=== PATIENT | male | born 1965 | race Caucasian/White ===

== ENCOUNTER 2017-11-05 12:21 | Emergency (ER) | payer SELFPAY ==
--- NOTE | 2017-11-05 13:55 | RAD ---
HISTORY: Right wrist injury COMPARISONS: None VIEWS: 3, Frontal, lateral, and oblique views of the right wrist FINDINGS: BONE DENSITY: Normal. BONES: There is a transverse oblique, minimally displaced fracture of the distal radial metaphysis. JOINTS: There is no arthropathy. ALIGNMENT: There is no dislocation. SOFT TISSUES: Unremarkable. OTHER FINDINGS: None. IMPRESSION: MINIMALLY DISPLACED FRACTURE OF THE DISTAL RADIAL METAPHYSIS
[2017-11-05] MEDS ORDERED: Acetaminophen TAB* 325 MG PO ONE (14:06)
[2017-11-05 14:50] VITALS: BP 158/96
--- NOTE | 2017-11-05 15:25 | ED ---
Upper Extremity Pain - HPI Summary HPI Summary: Patient is a 52-year-old male who presents emergency department for a right wrist injury that occurred just prior to arrival. Pt. state he was on a 10 foot ladder cutting trees when the ladder "buckled" and pt. fell to the ground. He states he landed on the his right wrist and low back. He denies head injury of LOC. Pt. states he had some mild back pain that has resolved. Pt. denies h/a, neck pain, chest pain, SOB, numbness, tingling, weakness in extremities. He denies past medical hx. Is not anticoagulated. Symptoms are moderate in severity. Moving right wrist makes symptoms worse. Nothing makes symptoms better. - History of Current Complaint Chief Complaint: EDExtremityUpper Stated Complaint: FALL/RT WRIST INJURY Time Seen by Provider: 11/05/17 13:33 Hx Obtained From: Patient - Allergies/Home Medications Allergies/Adverse Reactions: Allergies Allergy/AdvReac Type Severity Reaction Status Date / Time No Known Allergies Allergy Verified 11/05/17 12:26 Home Medications: Home Medications NK [No Home Medications Reported] 11/05/17 [History Confirmed 11/05/17] PMH/Surg Hx/FS Hx/Imm Hx Previously Healthy: Yes Infectious Disease History: No Infectious Disease History: Denies: Traveled Outside the [place] in Last 30 Days - Social History Occupation: Employed Full-time Lives: With Family Alcohol Use: None Substance Use Type: Reports: None Smoking Status (MU): Heavy Every Day Tobacco Smoker Review of Systems Eyes: Negative ENT: Negative Cardiovascular: Negative Negative: Chest Pain Respiratory: Negative Negative: Shortness Of Breath Gastrointestinal: Negative Negative: Abdominal Pain, Vomiting, Nausea Genitourinary: Negative Negative: hematuria Positive: Other - Back pain, right wrist pain Skin: Negative Negative: Bruising Neurological: Negative Negative: Headache, Weakness, Paresthesia, Numbness, Syncope All Other Systems Reviewed And Are Negative: Yes Physical Exam Triage Information Reviewed: Yes Vital Signs On Initial Exam: Initial Vitals Temp Pulse Resp BP Pulse Ox 97.4 F 72 16 128/77 97 11/05/17 12:24 11/05/17 12:24 11/05/17 12:24 11/05/17 12:24 11/05/17 12:24 Vital Signs Reviewed: Yes Appearance: Positive: Pain Distress - Pt. sitting up in bed in NAD. Appear in pain but nontoxic. Holding right wrist Skin: Positive: Warm, Dry Head/Face: Positive: Normal Head/Face Inspection Eyes: Positive: Normal, ANTONIO Neck: Positive: Supple, Nontender - No midline tenderness Respiratory/Lung Sounds: Positive: Clear to Auscultation, Breath Sounds Present Cardiovascular: Positive: Normal, RRR Abdomen Description: Positive: Nontender, Soft Musculoskeletal: Positive: Other - Good palpable right radial pulse. 5/5 strength. No sensory deficits. Edema and pain noted to the distal forearm. No breaks in the skin. No proximal elbow or shoulder pain. No midline back tenderness. No ecchymosis. Neurological: Positive: Normal, CN Intact II-III Psychiatric: Positive: Normal - [place] Coma Scale Best Eye Response: 4 - Spontaneous Best Motor Response: 6 - Obeys Commands Best Verbal Response: 5 - Oriented Coma Scale Total: 15 Procedures - Splinting Hand-Made Type: orthoglass Splint: sugar-tong Pre-Proc Neuro Vasc Exam: normal Post-Proc Neuro Vasc Exam: normal Diagnostics - Vital Signs Vital Signs Temp Pulse Resp BP Pulse Ox 11/05/17 14:48 97.0 F 68 18 158/96 97 11/05/17 12:24 97.4 F 72 16 128/77 97 - Laboratory Lab Statement: Any lab studies that have been ordered have been reviewed, and results considered in the medical decision making process. Course/Dx - Course Course Of Treatment: Pt. presenting to the ER for an isolated right wrist injury after falling off of a ladder. Pt. noted in triage that he had low back pain. On my exam, pt. states back pain has resolved and he declined imaging on back. Pt. initially declined any pain medication. He otherwise denies h/a, neck pain, CP, SOB, abd. pain, numbness, tingling or weakness. Wrist xray shows a minimally displaced distal radial fracture, per radiology. Pt. agreed to tylenol prior to splinting. Sugar tong splint was placed. Pt. to call the ortho. clinic today to schedule an appointment. To ice and elevate. Tylenol for pain as directed. To return to ER for any worsening sxs or any new symptoms. Pt. understands and agrees with plan. - Diagnoses Differential Diagnosis/HQI/PQRI: Positive: Contusion, Fracture (Closed), Hematoma, Strain, Sprain Provider Diagnoses: Radial fracture Discharge - Sign-Out/Discharge Documenting (check all that apply): Discharge/Admit/Transfer - Discharge Plan Condition: Good Disposition: HOME Patient Education Materials: Wrist Fracture in Adults (ED) Referrals: Hugh Lauren MD [Medical Doctor] - No Primary Care Phys,NOPCP [Primary Care Provider] - Additional Instructions: Call Dr. Barboza's office today to schedule an appointment Ice and elevate intermittently Keep splint in place Tylenol for pain as directed Return to ER if symptoms change or worsen - Billing Disposition and Condition Condition: GOOD Disposition: HOME
== END 2017-11-05 14:49 | disposition home or self-care (01) ==
LOC: ED 12:21
DX: S52.591A Other fractures of lower end of right radius, initial encounter for closed fracture (principal); W11.XXXA Fall on and from ladder, initial encounter; Y93.H9 Activity, other involving exterior property and land maintenance, building and construction; Y92.9 Unspecified place or not applicable; F17.200 Nicotine dependence, unspecified, uncomplicated
CPT/HCPCS: 99282; A9270-GY

== ENCOUNTER 2017-12-21 13:53 | Inpatient (IN) | payer SELFPAY ==
[2017-12-21] MEDS ORDERED: Aspirin SUPP* 300 MG ONE (14:01)
[2017-12-21] MEDS ORDERED: Propofol* 100 ML ONE (14:02)
[2017-12-21] MEDS ORDERED: Aspirin SUPP* 300 MG PR ONE (14:10)
[2017-12-21] MEDS ORDERED: Amiodarone 150 MG IVPREMIX* 150 MG/100 ML BAG IV ONE (14:10)
[2017-12-21] MEDS ORDERED: NS 0.9% 1000 ML* 1,000 ML IV ONE (14:10)
[2017-12-21] MEDS ORDERED: Metoprolol Tartrate IV* 1 MG/ML 5 ML VIAL IV ONE (14:10)
[2017-12-21 14:19] LABS: ABS Basophils 0.1 10^3/ul (0-0.2); ABS Eosinophils 0.1 10^3/ul (0-0.6); ABS Lymphocytes 3.5 10^3/ul (1.0-4.8); ABS Monocytes 0.2 10^3/ul (0-0.8); ABS Neutrophils 5.2 10^3/ul (1.5-7.7); ABS Nucleated RBC 0 10^3/ul; Hematocrit 39 % (42-52); Hemoglobin 13.3 g/dl (14.0-18.0); Lymphocyte % 38.5 % (25-47); Mean Corpuscular HGB Conc 34 g/dl (31-36); Mean Corpuscular Hemoglobin 32 pg (27-31); Mean Corpuscular Volume 94 fL (80-94); Mean Platelet Volume 7.1 um3 (7.4-10.4); Nucleated Red Blood Cells % 0.1; Platelet Count 199 10^3/ul (150-450); Red Blood Count 4.18 10^6/ul (4.00-5.40); Red Cell Distribution Width 13 % (10.5-15)
[2017-12-21 14:33] LABS: INR 0.91 (0.77-1.02)
--- NOTE | 2017-12-21 14:34 | ED ---
Jose C Kennedy Tenzin, scribed for Gabe Price MD on 12/21/17 at 1417 . HPI Cardiac - HPI Summary HPI Summary: 52-year-old male brought in by ambulance status post resuscitation from cardiac arrest. Cardiac arrest was unwitnessed while the patient was at work with no bystander CPR. Fire started CPR to minutes prior to EMS arrival. They found him to be in V. fib arrest and the AED delivered several shocks while CPR/ALS care was in progress. 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 He then regained pulses and presents comatose, intubated but with stable vital signs. He did not have return of neurologic functioning as of yet. Patient had no medications on his person and is unable to provide any history. Pt is a level 5 caveat patient. - History of Current Complaint Stated Complaint: CARDIAC ARREST Time Seen by Provider: 12/21/17 14:01 Hx Obtained From: Patient - Allergy/Home Medications Allergies/Adverse Reactions: Allergies Allergy/AdvReac Type Severity Reaction Status Date / Time No Known Allergies Allergy Verified 11/05/17 12:26 PMH/Surg Hx/FS Hx/Imm Hx Previously Healthy: No - unknown, unable to obtain due to unresponsiveness Infectious Disease History: Denies: Traveled Outside the [place] in Last 30 Days - Family History Known Family History: Positive: Other - Level 5 caveat pt. - Social History Occupation: Employed Part-time Alcohol Use: None Substance Use Type: Reports: None Smoking Status (MU): Heavy Every Day Tobacco Smoker - Additional Comments History Additional Comments: Unobtainable past medical history, review of systems due to unresponsiveness Review of Systems - ROS Summary Review of Systems Summary: Level 5 caveat patient. Positive: Other - Cardiac arrest All Other Systems Reviewed And Are Negative: No - Comments Additional Review of Systems Comments: Review of systems unattainable due to unresponsiveness Physical Exam - Summary Physical Exam Summary: Appearance: Well appearing, no pain distress Skin: warm, dry, reflects adequate perfusion Head/face: normal Eyes: EOMI, ANTONIO ENT: normal Neck: supple, non-tender Respiratory: CTA, breath sounds present Cardiovascular: RRR, pulses symmetrical Abdomen: non-tender, soft Bowel Sounds: present Musculoskeletal: normal, strength/ROM intact Neuro: normal, sensory motor intact, A&Ox3 Triage Information Reviewed: Yes Vital Signs Reviewed: Yes Completion Of Physical Exam Limited Due To: Altered Mental Status, Level 5 Appearance: Positive: Thin - Comatose, intubated on arrival Skin: Positive: Warm, Dry Head/Face: Positive: Normal Head/Face Inspection, Other - Orally intubated, secured with commercially available device Eyes: Positive: Other: - Pupils are fixed and midrange, no corneal reflex ENT: Positive: Normal ENT inspection Neck: Positive: Supple, Nontender, Other: - Bounding carotid pulse Respiratory/Lung Sounds: Positive: Clear to Auscultation, Breath Sounds Present , Other - Assisted respirations by bag valve mask Cardiovascular: Positive: Tachycardia Abdomen Description: Positive: Nontender, No Organomegaly Bowel Sounds: Positive: Absent Male Genital Exam: Positive: Normal Genitalia Musculoskeletal: Positive: Other - No spontaneous motion of the extremities. Does appear to move his neck spontaneously. Velcro splint on the right wrist Neurological: Positive: Other - Currently comatose with a GCS of 3T AVPU Assessment: Unconscious Diagnostics - Laboratory Lab Results: Lab Results 12/21/17 12/21/17 Range/Units 13:05 13:05 WBC 9.0 (3.5-10.8) 10^3/ul RBC 4.18 (4.00-5.40) 10^6/ul Hgb 13.3 L (14.0-18.0) g/dl Hct 39 L (42-52) % MCV 94 (80-94) fL MCH 32 H (27-31) pg MCHC 34 (31-36) g/dl RDW 13 (10.5-15) % Plt Count 199 (150-450) 10^3/ul MPV 7.1 L (7.4-10.4) um3 Neut % (Auto) 57.3 (38-83) % Lymph % (Auto) 38.5 (25-47) % Rankin % (Auto) 2.0 (0-7) % Eos % (Auto) 1.0 (0-6) % Baso % (Auto) 1.2 (0-2) % Absolute Neuts (auto) 5.2 (1.5-7.7) 10^3/ul Absolute Lymphs (auto) 3.5 (1.0-4.8) 10^3/ul Absolute Monos (auto) 0.2 (0-0.8) 10^3/ul Absolute Eos (auto) 0.1 (0-0.6) 10^3/ul Absolute Basos (auto) 0.1 (0-0.2) 10^3/ul Absolute Nucleated RBC 0 10^3/ul Nucleated RBC % 0.1 Patient Temperature Not Reportable ABG pH 7.17 L* (7.35-7.45) ABG pH (Temp Correct) Not Reportable ABG pCO2 41 (35-45) mmHg ABG pCO2 (Temp Corrct Not Reportable ABG pO2 455 H (80-100) mmHg ABG pO2 (Temp Correct Not Reportable ABG HCO3 14.7 L (19-31) mmol/L ABG O2 Saturation 100.2 H (95-98) % ABG Base Excess -13.0 L (-2.0-2.0) Respiration Rate Not Reportable O2 Delivery Device ventilator Ventilator Type Not Reportable Vent Mode Not Reportable FiO2 50 Inspiratory Time Not Reportable PEEP Not Reportable Pressure Support Not Reportable Pressure Control Not Reportable EPAP Not Reportable IPAP Not Reportable BiPAP Not Reportable Result Diagrams: 12/21/17 13:05 Lab Statement: Any lab studies that have been ordered have been reviewed, and results considered in the medical decision making process. - Radiology chest x-ray Xray Interpretation: No Acute Changes Radiology Interpretation Completed By: ED Physician - ET tube, OG tube appropriate - Ultrasound No standard instances Ultrasound Interpretation Completed By: ED Physician - Cardiac echocardiogram reveals MR, no significant wall motion abnormality - EKG No standard instances Cardiac Rate: Tachycardia ST Segment: Normal Ectopy: None EKG Interpretation: sinus tachycardia without ST elevation, normal intervals EKG Comparison: No Significant Change Re-Evaluation - Re-Evaluation First Eval Re-Evaluation Time: 14:31 Change: Improved - Patient has stabilized Disposition - Course Course Of Treatment: Patient presents with ROSC after V. fib arrest. There is no return of neurologic value as of yet. Patient was given beta marty, Lopressor 5 mg for tachycardia and an initial EKG shows no ST elevation [place]. Cardiology present at bedside. A stat echo was obtained. This shows no significant wall motion abnormalities. A temperature sensing Nayak catheter was attempted be placed but unable to due to prostate size. Rectal temperature probe was inserted and body temperature initially was 36.7. An OG tube was placed. Chest x-ray confirmed placement of OG tube, ET tube. Patient was given propofol for sedation as he was starting to move his head and neck. Inspector Repairer wish to have amiodarone 150 mg bolus followed by a drip initiated. ABG was performed and showed an initial pH is 7.17. The patient was initially hypertensive with blood pressure 175. After beta marty it was down to 143. Cool IV fluids were started. There is no evidence for trauma. A CT scan of the brain will be obtained prior to disposition to the ICU, hypothermia protocol to be initiated there. Dr. Jane from ICU was present throughout the resuscitation. No family is currently available to assist with history. He is wearing a brace on his right wrist from his only prior ER visit on 04 December for a torus fracture. - Diagnoses Provider Diagnoses: Cardiac arrest with ventricular fibrillation, Coma - Physician Notifications Discussed Care Of Patient With: Rachel Ross MD - and Dr. Torres were present during resuscitation - Critical Care Time Critical Care Time: 30-74 min - Critical care time is exclusive of separately billable procedures Discharge - Sign-Out/Discharge Documenting (check all that apply): Discharge/Admit/Transfer - Discharge Plan Condition: Critical Disposition: ADMITTED TO [facility] Referrals: No Primary Care Phys,NOPCP [Primary Care Provider] - - Billing Disposition and Condition Condition: CRITICAL Disposition: Admitted to [facility] The documentation as recorded by the Jose C galo Tenzin accurately reflects the service I personally performed and the decisions made by me, Gabe Price MD.
[2017-12-21 14:41] LABS: EGFR Non-African American 50.7 (>60)
--- NOTE | 2017-12-21 14:41 | HP ---
H&P (Free Text) History and Physical: History and Physical - Critical Care Limitations in history/physical: cardiac arrest, intubated, unresponsive; limited history from chart HPI: 52y M pmhx of smoking; [place] [facility] [place]. Today unclear if witnessed collapsed but called by someone for unresponsiveness, on arrival by fire dept, CPR started, noted to be in VT/VF, defibrillated. EMS arrival. CPR continued, VT->asystole->PEA rhythms. Intubated. Given multiple epi and bicarb. 10min later is when EMS arrived. ROSC achieved on arrival to ER, total duration ~40min since downtime. Initial vitals HR 130s, BP 170s/110s, intubated, unresponsive, not moving spontaneously, some agonal type of breaths noted. Pupils not reactive initially. Interventional cardiology called, EKG initial Sinus Tachycardia, no acute ST/T changes noted. Bedside stat ECHO being done, no gross focal wall motion abnormality noted, appears to be hyperdynamic, RV not apparently dilated, no pericardial effusion noted. Started on IVF bolus. admitted to ICU Recurrent VT and VF, suspicious for torsades. multiple deifibrillations, ROSC immediate. given multiple boluses of amiodarone IV push, already on IV amio infusion, multiple boluses of 100mg IV lidoaine also pushed. started on lidocaine 2mg/min, increased to 3mg/min. given additional 500mg procainamide IV push over 30min. Noted that patient was mostly in NSR, good AV associated. he would change to a wider complex rhythm with what appears to be a ventricular rhythm, less visible AV associated, probably even heart block developing? then more ectopy, followed by eventual ventricular tachycardia/fibrillation. after medications and defibrillations, he would eventually go back to NSR with normal AV conduction and narrow complex QRS. we considered a TVP to pace, but he has now remained NSR for about 1 hour, less frequent ectopy. EKG repeated with wider WRS; then again with a narrow qrs complex and no evidence of ST changes, some taller Twaves noted though. Cardiology has held off TVP currently. No clear ischemic changes on normalized EKG. started on pressors now with jemal and vasopressin. IVF bolus. 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 Allergies: unknown; Allergies Allergy/AdvReac Type Severity Reaction Status Date / Time No Known Allergies Allergy Verified 11/05/17 12:26 Home Medications: unknown Tele: sinus tachycardia, now nsr Vitals: O2/Vent: Infusions: Current Medications: Physical Exam: General: intubated, not sedated, not diaphoretic, unresponsive Head: normocephalic, atraumatic HEENT: no pallor, no icterus, moist mucous membranes Neck: soft, supple, no jvd CVS: tachycardic, now normal, regular, no murmur Resp: bilateral air entry, no rhales/wheeze/rhonchi, no acc muscle use Abdomen: soft, nondistended, bowel sounds+ Ext: pulses+, warm, no edema Skin: intact Neuro: intubated, unresponsive; unable to assess orientation; cough-, gag-, pupils 1-2mm and sluggish, corneal- Labs: Imagin/2 cxr - ett above loco, ngt+; no clear infiltrate or ptx noted. 12/21 CT brain - no acute findings of hemorrhage or infarct noted. Assessment: 52y M pmhx of smoking; recent [place] [facility] [place]. Today unclear if witnessed collapsed but called by someone for unresponsiveness. out of hospital VT/VF arrest, then asystole and PEA. ROSC achieved prior to ER arrival, approx ~40min downtime. Recurrent VT developing. -VT/VF cardiac arrest, out of hospital -VT Storm -Shock, unspecified -Acute Respiratory failure, unspecified -Encephalopathy, post cardiac arrest -renal insufficiency, suspect LAUREN -elevated LFTs, suspect shock liver Plan: Given recurrent Ventricular arrythmia, hemodynamic unstability, will not be a candidate now for hypothermia. cont propofol for sedation if remains stable, can attempt cooling or even maintain euthermia protocol. cont amiodarone 1mg/min, lidocaine 3mg/min s/p procainamide 500mg IV push, no infusion now keep pads on IV jemal and vaso for BP support, maintain map >65, sbp >90 possible torsades as etiology, given mag IV load during VT episodes. may need cardiac cath at some point if deemed necessary for etiology of recurrent VT. ECHO performed, intact LV function, no clear focal WMA. maintain IVF infusion for now maintain ventilation; repeat abg now will need neuro assessment. attempted EEG stat on ICU arrival for rhythmic facial movements, decreased with propofol now; eeg not done due to ongoing hemodyn instability developing. Cardiology and ICU discussed, due to ongoing instability, may require further hemodynamic support if deteriorates, such as mechanical support or even EPS ablation for VT at some point. Would benefit from higher level cardiac care. Discussed with family about transfer to higher level center, they agree. will transfer to nearest cardiac center when able Disposition: admit to ICU Code Status: full code Total Critical Care time is 90 minutes, excluding procedures/teaching Tobi Grace MD Bungy Jump Master (Electronically Signed)
--- NOTE | 2017-12-21 14:44 | RAD ---
HISTORY: arrest, status post cardiac arrest COMPARISONS: None VIEWS: 1: frontal portable view of the chest at 2:09 PM FINDINGS: LINES AND TUBES: An endotracheal tube is noted with the tip overlying the trachea between the clavicles and the loco. A gastric tube is noted. The tip is below the ozykg-ye-elri of the current examination, but is below the diaphragm. CARDIOMEDIASTINAL SILHOUETTE: The cardiomediastinal silhouette is normal for portable technique. PLEURA: The costophrenic angles are sharp. No pleural abnormalities are noted. LUNG PARENCHYMA: There is patchy alveolar opacification of the right infrahilar lung. ABDOMEN: The upper abdomen is clear. There is no subphrenic gas. BONES AND SOFT TISSUES: No bone or soft tissue abnormalities are noted. IMPRESSION: LINES AND TUBES ABOVE. PATCHY AIRSPACE DISEASE OF THE RIGHT INFRAHILAR LUNG.
[2017-12-21] MEDS ORDERED: Propofol* 500 MG/50 ML BTL IV SCH ×2 (15:00→17:49)
[2017-12-21] MEDS ORDERED: Amiodarone 360 MG IVPREMIX* 360 MG/200 ML BAG IV ONE ×2 (15:01→20:08)
--- NOTE | 2017-12-21 15:03 | RAD ---
HISTORY: coma, status post cardiac arrest COMPARISONS: None TECHNIQUE: Multiple contiguous axial CT scans were obtained of the head without intravenous contrast. Coronal and sagittal multiplanar reformations are also submitted for review. FINDINGS: The study is limited by patient motion artifact. HEMORRHAGE/INFARCT: There is no hemorrhage or acute infarct. MASSES/SHIFT: There is no mass or shift. EXTRA-AXIAL SPACES: There are no extra-axial fluid collections. SULCI AND VENTRICLES: The sulci and ventricles are normal in size and position for the patient's stated age. CEREBRUM: There is diffuse loss of atkinson-white differentiation. BRAINSTEM: There are no focal parenchymal abnormalities. CEREBELLUM: There is diffuse loss of atkinson-white differentiation. VESSELS: The vessels are grossly normal. PARANASAL SINUSES: There are-fluid levels within the right maxillary sinus and sphenoid sinus. ORBITS: The orbits are unremarkable. BONES AND SOFT TISSUE: No bone or soft tissue abnormalities are noted. OTHER: None IMPRESSION: 1. DIFFUSE LOSS OF ATKINSON-WHITE DIFFERENTIATION, CONCERNING FOR DIFFUSE ANOXIC INJURY GIVEN THE HISTORY OF CARDIAC ARREST. 2. AIR-FLUID LEVELS WITHIN THE RIGHT MAXILLARY SINUS AND SPHENOID SINUS.
[2017-12-21] MEDS ORDERED: Phenylephrine INJ* 10 MG/ML 1 ML VIAL (10 MG) ONE ×2 (16:24→20:36)
[2017-12-21] MEDS ORDERED: VASOPRESSIN 20 UNITS/ML 1 ML VIAL ONE (16:43)
[2017-12-21] MEDS ORDERED: Phenylephrine INJ* 50 MG in NS 0.9% 250 ML* 245 ML IV SCH (17:00)
[2017-12-21] MEDS ORDERED: D5W IVPB SCH (17:00)
[2017-12-21] MEDS ORDERED: PROCAINAMIDE IVPB SCH (17:00)
--- NOTE | 2017-12-21 17:19 | PN ---
Progress Note - Progress Note Date of Service: 12/21/17 Note: Arterial Line Procedure Note Indication: frequent arterial blood gases , invasive hemodynamic monitoring Diagnosis: VT, cardiac arrest, respiratoy failure Performed by: Tobi Grace MD Consent: Emergent [place] Protocol: Time-out was performed and the correct patient and site were verified - Prior labs/history was reviewed prior to procedure - Full sterile precautions with chlorhexidine/full drapes/gowns/gloves utilized - left radial artery visualized with US - Vessel accessed with return of pulsatile blood. One attempt was made to access vessel. A cathetor was threaded over wire into vessel. Good arterial waveform was observed on monitor. - Arterial Catheter was sutured to site; dressing applied to site. EBL <5 cc No immediate complications noted, patient tolerated procedure well. Tobi Grace MD Corporate Buyer (Electronically Signed)
--- NOTE | 2017-12-21 17:19 | PN ---
Progress Note - Progress Note Date of Service: 12/21/17 Note: Central Line Procedure Note Indication: venous access Diagnosis: VT, cardiac arrest, respiratory failure Performed by: Tobi Grace MD Consent: Emergent [place] Protocol: Time-out was performed and the correct patient and site were verified - Prior labs/history was reviewed prior to procedure - Full sterile precautions with chlorhexidine/full drapes/gowns/gloves utilized - Left internal jugular vein visualized with ultrasound - Vessel accessed under ultrasound guidance with return of nonpulsatile blood. A guidewire was passed into vessel and confirmed in vessel with ultrasound. 1 attempt was made to access vessel. Vessel was dilated and cathetor was passed over wire into vessel. All ports demonstrated good blood return and flushed. Catheter was sutured to site and dressing applied. Adequate hemostasis was achieved EBL <5 cc No immediate complications noted, patient tolerated procedure well. Post Procedure CXR: Pending Tobi Grace MD Desktop Technician (Electronically Signed)
--- NOTE | 2017-12-21 17:37 | PN ---
Progress Note - Progress Note Date of Service: 12/21/17 Note: Code Note Patient developed VT, loss of pulse, immediate defibrillation with ROSC. multiple epsiodes of VT/VF with immediate defibrillation and ROSC achieved. multiple doses of amio 150mg IV and 300mg IV; as well as lidocaine 100mg IV patient already intubated, airway intact/preserved. sats remains 90s+ during the whole time. I was code leader during the code. Tobi Grace Wic Site Coordinator
[2017-12-21] MEDS: LIDOCAINE DRIP IVPB ONE (17:38)
[2017-12-21] MEDS: Amiodarone 360 MG IVPREMIX* 360 MG/200 ML BAG IV ONE (17:42)
[2017-12-21] MEDS ORDERED: Vasopressin* 100 UNITS in D5W 250 ML BAG* 245 ML IVPB SCH (18:00)
[2017-12-21] MEDS ORDERED: Pantoprazole IV* 40 MG IV SCH (18:00)
[2017-12-21] MEDS: NS 0.9% 1000 ML* 2,000 ML IV ONE ×2 (18:23→19:15)
[2017-12-21] MEDS ORDERED: Norepinephrine 16MCG/ML IVPRE* 4,000 MCG/250 ML BAG IV ONE ×2 (18:27→20:10)
[2017-12-21] MEDS: Epinepherine DRIP 4 mcg/ml 250 mls (dosed in mcg/kg/min) IVPB SCH ×5 (18:45→23:50)
--- NOTE | 2017-12-21 18:49 | RAD ---
Indication: Central line placement. Single frontal view of the chest performed at 1810 hours was reviewed. Comparison is made with previous exam dated December 21, 2017. Left internal jugular vein catheter tip appears to be in the superior vena cava. ET tube and nasogastric tube are in place. No pneumothorax is noted. IMPRESSION: NO ACTIVE CARDIOPULMONARY DISEASE IS NOTED. TUBES AND LINES APPEAR IN APPROPRIATE POSITION WITH LEFT INTERNAL JUGULAR VEIN CATHETER TIP IN THE SUPERIOR VENA CAVA.
--- NOTE | 2017-12-21 18:59 | CONS ---
CARDIOLOGY CONSULTATION: DATE OF CONSULT: 12/21/17 INDICATION FOR CONSULT: Ventricular fibrillation. HISTORY OF PRESENT ILLNESS: The patient is a 52-year-old male with little past medical history, who was found down at his work site. Ambulance was called. The patient did not get CPR for 8 to 10 minutes. When ambulance arrived, the fibrillator recognized ventricular fibrillation and he received 3 shocks. The patient then had a pulse. The patient was transported to the emergency room. In the emergency room, he was intubated. A stat echocardiogram showed normal LV function. His electrocardiogram showed normal sinus rhythm with nonspecific T-wave abnormalities. No evidence of ST-segment elevation or depression. The patient was brought up to the intensive care unit. The patient had a head CT, which was unremarkable. His laboratory studies were unremarkable. In the intensive care unit, the patient had repeated episodes of ventricular fibrillation consistent with VF storm. The patient was treated with multiple medications including amiodarone, multiple boluses of lidocaine, multiple boluses of procainamide, bicarbonate, beta blockers. Ultimately, the patient's VF storm started to come under better control. PAST MEDICAL HISTORY: Unremarkable from his family, the patient did have a history of drug abuse in the distant past. Apparently, he has been clean for 5 years. The patient does drink alcohol on a regular basis. OUTPATIENT MEDICATIONS: None. ALLERGIES: No known drug allergies. FAMILY HISTORY: No family history of ventricular arrhythmias. 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 He does drink alcohol occasionally. Unknown tobacco use as the patient was intubated and could not give an answer. The patient does not have any history of any cardiac problems. PHYSICAL EXAM: Weight is 167 pounds. The patient was intubated and sedated. Lungs are clear to auscultation with vented breath sounds. Cardiac Exam: Distant and difficult to establish murmur. Abdomen is soft. Extremities show no edema. He has 2+ pulses throughout. DIAGNOSTIC STUDIES/LAB DATA: Chemistries were normal. Potassium 4.2, BUN 15, creatinine 1.4, lactic acid was 10.2. AST and ALT were mildly elevated. Troponin level 0.05. BNP was 88. TSH 8.5. CBC within normal limits. An echocardiogram demonstrated normal LV size and systolic function. Right ventricle was normal. His aortic and mitral valves were completely normal. IMPRESSION: This is a 52-year-old gentleman with [id number] cardiac arrest , who continues to have episodes of ventricular fibrillation consistent with VF storm. The patient has been treated with multiple antiarrhythmic medications and treated with beta blockers and bicarbonate. At this point, it is unclear what the cause of his ventricular fibrillation storm is. It could be drug or chemical induced. The patient does not seem to be consistent with ischemia as his EKG and echocardiogram were normal. The patient will continue on his current treatment. I did contact both [facility] and [facility] for availability of ICU beds for transfer. The patient would be transferred to the nearest institution with ICU bed. TIME SPENT: Total time spent with the patient was approximately 2 hours, 1 hour of that was with critical care. [id number]/[facility] #: [id number] SHAI
[2017-12-21] MEDS ORDERED: Epinepherine DRIP 4 mcg/ml 250 mls (dosed in mcg/kg/min) IVPB SCH (19:00)
[2017-12-21] MEDS ORDERED: fentaNYL* 50 MCG/ML 2 ML VIAL (100 MCG VIAL) ONE (19:04)
[2017-12-21] MEDS ORDERED: Heparin 2 UNITS/ML IVPREMIX* 3,000 ML IV ONE (19:04)
[2017-12-21] MEDS ORDERED: VERAPAMIL 2.5 MG/ML 2 ML VIAL ** 5 mg/2 ml ONE (19:05)
[2017-12-21] MEDS ORDERED: Lidocaine 1% INJ* 10 MG/ML 30 ML SDV ONE (19:05)
[2017-12-21] MEDS ORDERED: nitroGLYCERIN DRIP* 25,000 MCG/250 ML BTL ONE (19:05)
[2017-12-21] MEDS ORDERED: Iodixanol* (CONTRAST) 320 MG/ML 100 ML SDV ONE (19:08)
[2017-12-21] MEDS ORDERED: Heparin(*) 1000 UNIT/ML 10 ML VIAL CATH LAB IV ONE (19:10)
[2017-12-21] MEDS: Propofol* 100 ML ONE ×2 (19:30→19:45)
--- NOTE | 2017-12-21 19:51 | PN ---
Progress Note - Progress Note Date of Service: 12/21/17 Note: Central Line Procedure Note Indication: venous access Diagnosis: VT, cardiac arrest, respiratory failure Performed by: Tobi Grace MD; at approx 700pm Consent: Emergent Thermal Protocol: Time-out was performed and the correct patient and site were verified - Prior labs/history was reviewed prior to procedure - Full sterile precautions with chlorhexidine/full drapes/gowns/gloves utilized - Left femoral vein visualized with ultrasound - Vessel accessed under ultrasound guidance with return of nonpulsatile blood. A guidewire was passed into vessel and confirmed in vessel with ultrasound. 1 attempt was made to access vessel. Vessel was dilated and cathetor was passed over wire into vessel. All ports demonstrated good blood return and flushed. Catheter was sutured to site and dressing applied. Adequate hemostasis was achieved EBL <5 cc No immediate complications noted, patient tolerated procedure well. Procedure done independant of total critical care time Tobi Grace MD [employer] Account [employer] (Electronically Signed)
[2017-12-21] MEDS ORDERED: EPINEPHRINE 1 MG/ML 1 ML VIAL ONE ×2 (20:06→20:07)
[2017-12-21] MEDS ORDERED: Ticagrelor* 90 MG TAB PO ONE (20:26)
--- NOTE | 2017-12-21 21:08 | PN ---
Progress Note - Progress Note Date of Service: 12/21/17 Note: Critical Care Patient became hypotensive, more bradycardic. noted more progressive mottling+, cold, clammy. laready on max dose jemal and vaso. added levophed, added epi and responded to epi, max dose 15. started dobutamine 5, increased to 10 some rounds of epi and atropine, responded. no further VT except noted earlier. noted episodic wide complex. 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 IABP placed before. hemodyn stable, will wean down pressors slowly will dec antiarryhtmics overnight cont DAPT and statin. total critical care time additional 30min, not including procedures; total of 120 minutes today, not including procedures. Tobi Grace [place] [employer]
[2017-12-21] MEDS ORDERED: Nitroglycerin TAB 0.4 MG* 0.4 MG TAB SL PRN (21:17)
[2017-12-21] MEDS ORDERED: Atropine SYRINGE* 0.1 MG/ML 10 ML SYRINGE (1 MG) ONE (21:48)
[2017-12-21] MEDS ORDERED: Acetaminophen ADULT LIQ* 650 MG/20.3 ML UDC NG TUBE PRN (22:00)
[2017-12-21] MEDS ORDERED: fentaNYL* 50 MCG/ML 2 ML VIAL (100 MCG VIAL) IV PRN (22:02)
[2017-12-21 23:32] LABS: Urine Appearance Clear; Urine Blood 3+ (Negative); Urine Color Yellow; Urine Ketones Negative (Negative); Urine Protein Negative (Negative); Urine Specific Gravity 1.012 (1.010-1.030); Urine Urobilinogen Negative (Negative)
[2017-12-22] MEDS ORDERED: Propofol* 100 ML ONE (00:41)
[2017-12-22] MEDS ORDERED: Phenylephrine INJ* 10 MG/ML 1 ML VIAL (10 MG) ONE (00:43)
[2017-12-22] MEDS: Atorvastatin* 80 MG TAB NG TUBE SCH ×2 (00:51→17:52)
[2017-12-22 00:53] LABS: EGFR Non-African American 58.4 (>60)
[2017-12-22] MEDS: Meperidine Carpuject* 75 MG/ML CARPUJECT SYRINGE IV PRN ×4 (00:55→17:51)
[2017-12-22] MEDS: Epinepherine DRIP 4 mcg/ml 250 mls (dosed in mcg/kg/min) IVPB SCH ×6 (01:25→23:52)
[2017-12-22] MEDS ORDERED: Amiodarone 360 MG IVPREMIX* 360 MG/200 ML BAG IV ONE (02:44)
[2017-12-22] MEDS: Amiodarone 360 MG IVPREMIX* 360 MG/200 ML BAG IV ONE (02:46)
[2017-12-22 04:02] LABS: EGFR Non-African American 63.5 (>60)
[2017-12-22] MEDS: Propofol* 100 ML IVPB SCH ×4 (05:10→22:14)
[2017-12-22] MEDS ORDERED: LIDOCAINE IVPB ONE (06:18)
[2017-12-22] MEDS: LIDOCAINE DRIP IVPB ONE (06:21)
[2017-12-22 06:56] LABS: ABS Basophils 0 10^3/ul (0-0.2); ABS Eosinophils 0 10^3/ul (0-0.6); ABS Lymphocytes 0.5 10^3/ul (1.0-4.8); ABS Monocytes 0.7 10^3/ul (0-0.8); ABS Neutrophils 11.1 10^3/ul (1.5-7.7); ABS Nucleated RBC 0 10^3/ul; Eosinophil % 0 % (0-6); Hematocrit 39 % (42-52); Hemoglobin 13.1 g/dl (14.0-18.0); Lymphocyte % 3.9 % (25-47); Mean Corpuscular HGB Conc 34 g/dl (31-36); Mean Corpuscular Hemoglobin 32 pg (27-31); Mean Corpuscular Volume 93 fL (80-94); Mean Platelet Volume 7.3 um3 (7.4-10.4); Nucleated Red Blood Cells % 0; Platelet Count 161 10^3/ul (150-450); Red Blood Count 4.12 10^6/ul (4.00-5.40); Red Cell Distribution Width 14 % (10.5-15); White Blood Count 12.3 10^3/ul (3.5-10.8)
[2017-12-22 07:08] LABS: INR 1.06 (0.77-1.02)
[2017-12-22] MEDS ORDERED: DOBUTamine 2000 MCG/ML IVPREMX 500 MG/250 ML BAG IV ONE (07:20)
--- NOTE | 2017-12-22 07:21 | RAD ---
INDICATION: Cardiac failure COMPARISON: December 21, 2017 TECHNIQUE: An AP portable view obtained at 2330 hours is submitted. FINDINGS: Bones/Soft Tissues: There are no acute bony findings. There is no endotracheal tube in satisfactory position. A nasogastric tube passes normally through the mediastinum. Multiple chest leads project over the chest. There may be a pH probe. There is a left-sided central venous catheter is a brachiocephalic/SVC confluence. Cardiomediastinal: The cardiomediastinal silhouette is normal. Lungs: There are no infiltrates. There is minor interstitial edema. Pleura: There are no pleural effusions. Other: None IMPRESSION: MINOR INTERSTITIAL EDEMA. TUBES AND CATHETERS UNCHANGED IN POSITION.
[2017-12-22] MEDS ORDERED: DRIP IV SCH (08:00)
[2017-12-22] MEDS ORDERED: DOBUTAMINE IV SCH (08:00)
[2017-12-22] MEDS: Amiodarone 360 MG IVPREMIX* 360 MG/200 ML BAG IV SCH ×2 (08:46→18:26)
[2017-12-22] MEDS ORDERED: Famotidine IV * 20 MG in NS 0.9% 100 ML* 100 ML IVPB SCH (09:00)
[2017-12-22] MEDS ORDERED: Famotidine IV* 10 MG/ML 2 ML (20 mg) IV SCH (09:00)
[2017-12-22] MEDS: KCL 20 MEQ/100 ML IVPREMIX* 20 MEQ/100 ML BAG IV SCH ×5 (09:14→23:39)
[2017-12-22] MEDS ORDERED: NS 0.9% 1000 ML* 1,000 ML IV SCH (09:15)
[2017-12-22] MEDS: Aspirin 81 mg CHEW TAB* 81 MG TAB.CHEW NG TUBE SCH (09:30)
[2017-12-22] MEDS: Ticagrelor* 90 MG TAB PO SCH ×2 (09:30→20:56)
[2017-12-22 09:55] LABS: EGFR Non-African American 74.8 (>60)
--- NOTE | 2017-12-22 09:56 | RAD ---
HISTORY: respiratory failure, cardiac arrest COMPARISONS: None VIEWS: 1: frontal portable view of the chest at 9:45 AM. Evaluation is limited by positioning, with incomplete evaluation of the lung apices and left costophrenic angle. FINDINGS: LINES AND TUBES: An endotracheal tube is noted with the tip overlying the trachea between the clavicles and the loco. A gastric tube is noted, with the tip in the left upper quadrant in a prepyloric position.. A left internal jugular venous catheter is noted with the tip overlying the superior vena cava. CARDIOMEDIASTINAL SILHOUETTE: The cardiomediastinal silhouette is normal for portable technique. PLEURA: The costophrenic angles are sharp. No pleural abnormalities are noted. LUNG PARENCHYMA: The lungs are clear. ABDOMEN: The upper abdomen is clear. There is no subphrenic gas. BONES AND SOFT TISSUES: No bone or soft tissue abnormalities are noted. IMPRESSION: LIMITED STUDY. LINES AND TUBES ABOVE.
--- NOTE | 2017-12-22 11:03 | PN ---
Progress Note - Progress Note Date of Service: 12/22/17 Note: Progress Note - Critical Care 24 hour events: -remains intubated; on propofol; some shivering overnight, given demerol and fentanyl pushes. -multiple episodes of VT/VF, defibrillated yesterday, on increasing pressors and cardiogenic shock developing -s/p cardiac cath with RCA 100%, s/p PCI with BMS, s/p IABP placement -overnight off levophed, off jemal now; weaning vaso, on epi and -making good/large amounts of urine -remains hypothermic since yesterday, current temp 96, started on cooling to maintain 95-96 and prevent fevers -no bleeding noted -discussed with brother at bedside -transfer to [place] was cancelled, no higher level care indicated at this time after cath performed -some evidence of more upward gaze now, possible seizure? Tele: nsr, intermitten junctional rhythm noted; last VT/VF yesterday, some PVCs overnight Vitals: Vital Signs Temp 96.3 F 12/22/17 11:00 Pulse 183 12/22/17 11:01 Resp 15 12/22/17 11:00 BP 118/60 12/22/17 11:01 Pulse Ox 100 12/22/17 11:01 Intake & Output 12/21/17 12/22/17 12/22/17 18:59 06:59 18:59 Intake Total 7812.2 Output Total 15 4255 1038 Balance -15 3557.2 -1038 Weight 167 lb 8.821 oz 176 lb 12.972 oz Intake: IV Fluids 3000 NS (0.9%) 3000 IVPB 50 NS (0.9%) 50 Medicated IV 4762.2 CC - Amiodarone 517 CC - Dobutamine 261 CC - Epinephrine 2110 CC - Lidocaine 547 CC - Norepinephrine/ 290 Levophed CC - Phenylephrine/ 625.4 Neosynephrine CC - Propofol/Diprivan 327 CC - Vasopressin/ 84.8 Pitressin Output: Vyas 15 4255 1038 O2/Vent: AC 12/500/+5/50% Infusions: epi 7.5, 7.5, vaso off now, propofol 60, amio 0.5mg/min, lido 1mg /min Current Medications: Acetaminophen (Tylenol Adult Liq*) 650 mg NG TUBE Q4H PRN PRN Reason: TEMPERATURE>36DEGREES CELSIUS Aspirin (Aspirin 81 Mg Chew Tab*) 81 mg NG TUBE DAILY [facility] Atorvastatin Calcium (Lipitor*) 80 mg NG TUBE 1700 [facility] Last Admin: 12/22/17 00:51 Dose: 80 mg Fentanyl Citrate (Fentanyl*) 50 mcg IV Q1H PRN PRN Reason: SHIVERING Heparin Sodium (Porcine) (Heparin Flush Picc/Ml/Cvc(*)) 0 ml FLUSH 0600,1800 [facility]; Protocol Last Admin: 12/22/17 07:30 Dose: Not Given Procainamide HCl 2,000 mg/ (Dextrose) 500 mls @ 0 mls/hr IVPB .(Initial Rate) [facility]; Protocol Last Admin: 12/21/17 17:43 Dose: 250 mls/hr Vasopressin 100 units/ (Dextrose) 250 mls @ 6 mls/hr IVPB .(Initial Rate) [facility] Epinephrine HCl 1 mg/ Sodium (Chloride) 251 mls @ 0 mls/hr IVPB .PER PROTOCOL KIERSTEN; Protocol Last Admin: 12/22/17 06:59 Dose: 150 mls/hr Propofol (Diprivan*) 100 mls @ 9.12 mls/hr IVPB .(Initial Rate) KIERSTEN; Protocol Last Admin: 12/22/17 05:10 Dose: 27 mls/hr Amiodarone HCl (Nexterone 360 Mg/200 Ml Ivpremix*) 360 mg in 200 mls @ 16.667 mls/hr IV PER RATE KIERSTEN; Protocol Stop: 12/23/17 21:00 Last Admin: 12/22/17 08:46 Dose: 16.667 mls/hr Potassium Chloride (Potassium Chloride 20 Meq/100 Ml Ivpremix*) 20 meq in 100 mls @ 50 mls/hr IV Q1H [facility] Stop: 12/22/17 11:59 Last Admin: 12/22/17 11:20 Dose: 50 mls/hr Dexmedetomidine HCl 400 mcg/ (Sodium Chloride) 100 mls @ 10.02 mls/hr IVPB .( Initial Rate) [facility]; Protocol Dobutamine HCl/Dextrose (Dobutamine 2000 Mcg/Ml Ivpremx*) 500 mg in 250 mls @ 18.045 mls/hr IV PER RATE KIERSTEN; Protocol Meperidine HCl (Demerol Carpuject*) 25 mg IV Q1H PRN PRN Reason: SHIVERING Last Admin: 12/22/17 09:02 Dose: 25 mg Pantoprazole Sodium (Protonix Iv*) 40 mg IV DAILY KIERSTEN Ticagrelor (Brilinta*) 90 mg PO BID KIERSTEN Physical Exam: General: intubated, on sedation, not diaphoretic, unresponsive Head: normocephalic, atraumatic HEENT: no pallor, no icterus, moist mucous membranes Neck: soft, supple, no jvd CVS: normal rate, regular, no murmur Resp: bilateral air entry, no rhales/wheeze/rhonchi, no acc muscle use Abdomen: soft,ndd, bowel sounds decreased Ext: pulses+ via doppler, cool ext, no edema Skin: intact Neuro: intubated, unresponsive; pupils bilateral 4-5mm and sluggish to light but present; corneal +, cough+, gag diminished; not much response to painful stimuli. Labs: Laboratory Results - last 24 hr 12/21/17 12/21/17 12/21/17 13:05 13:05 13:05 WBC 9.0 RBC 4.18 Hgb 13.3 L Hct 39 L MCV 94 MCH 32 H MCHC 34 RDW 13 Plt Count 199 MPV 7.1 L Neut % (Auto) 57.3 Lymph % (Auto) 38.5 Rice % (Auto) 2.0 Eos % (Auto) 1.0 Baso % (Auto) 1.2 Absolute Neuts (auto) 5.2 Absolute Lymphs (auto) 3.5 Absolute Monos (auto) 0.2 Absolute Eos (auto) 0.1 Absolute Basos (auto) 0.1 Absolute Nucleated RBC 0 Nucleated RBC % 0.1 INR (Anticoag Therapy) 0.91 APTT 34.0 POC Activ Clotting Time Patient Temperature Not Reportable ABG pH 7.17 L* ABG pH (Temp Correct) Not Reportable ABG pCO2 41 ABG pCO2 (Temp Corrct Not Reportable ABG pO2 455 H ABG pO2 (Temp Correct Not Reportable ABG HCO3 14.7 L ABG O2 Saturation 100.2 H ABG Base Excess -13.0 L VBG pH VBG pCO2 VBG pO2 VBG HCO3 VBG O2 Saturation VBG Base Excess Respiration Rate Not Reportable O2 Delivery Device ventilator Ventilator Type Not Reportable Vent Mode Not Reportable FiO2 50 Inspiratory Time Not Reportable PEEP Not Reportable Pressure Support Not Reportable Pressure Control Not Reportable EPAP Not Reportable IPAP Not Reportable BiPAP Not Reportable Sodium Potassium Chloride Carbon Dioxide Anion Gap BUN Creatinine Est GFR ( Amer) Est GFR (Non-Af Amer) BUN/Creatinine Ratio Glucose Hemoglobin A1c Lactic Acid Calcium Magnesium Total Bilirubin Direct Bilirubin Indirect Bilirubin AST ALT Alkaline Phosphatase Total Creatine Kinase CK-MB (CK-2) Troponin I B-Natriuretic Peptide Total Protein Albumin Globulin Albumin/Globulin Ratio Triglycerides Cholesterol LDL Cholesterol HDL Cholesterol TSH Cortisol Urine Color Urine Appearance Urine pH Ur Specific [place] Urine Protein Urine Ketones Urine Blood Urine Nitrate Urine Bilirubin Urine Urobilinogen Ur Leukocyte Esterase Urine WBC (Auto) Urine RBC (Auto) Urine Bacteria Urine Glucose Urine Opiates Screen Ur Barbiturates Screen Ur Phencyclidine Scrn Ur Amphetamines Screen U Benzodiazepines Scrn Urine Cocaine Screen U Cannabinoids Screen Blood Type Antibody Screen 12/21/17 12/21/17 12/21/17 13:05 13:05 13:05 WBC RBC Hgb Hct MCV MCH MCHC RDW Plt Count MPV Neut % (Auto) Lymph % (Auto) Rice % (Auto) Eos % (Auto) Baso % (Auto) Absolute Neuts (auto) Absolute Lymphs (auto) Absolute Monos (auto) Absolute Eos (auto) Absolute Basos (auto) Absolute Nucleated RBC Nucleated RBC % INR (Anticoag Therapy) APTT POC Activ Clotting Time Patient Temperature ABG pH ABG pH (Temp Correct) ABG pCO2 ABG pCO2 (Temp Corrct ABG pO2 ABG pO2 (Temp Correct ABG HCO3 ABG O2 Saturation ABG Base Excess VBG pH VBG pCO2 VBG pO2 VBG HCO3 VBG O2 Saturation VBG Base Excess Respiration Rate O2 Delivery Device Ventilator Type Vent Mode FiO2 Inspiratory Time PEEP Pressure Support Pressure Control EPAP IPAP BiPAP Sodium 137 Potassium 4.2 Chloride 101 Carbon Dioxide 16 L Anion Gap 20 H BUN 15 Creatinine 1.47 H Est GFR ( Amer) 61.4 Est GFR (Non-Af Amer) 50.7 BUN/Creatinine Ratio 10.2 Glucose 371 H Hemoglobin A1c Lactic Acid 10.2 H* Calcium 8.2 L Magnesium 2.4 Total Bilirubin 0.40 Direct Bilirubin Indirect Bilirubin AST 252 H ALT 110 H Alkaline Phosphatase 84 Total Creatine Kinase 198 CK-MB (CK-2) 3.4 Troponin I 0.05 H* B-Natriuretic Peptide 88 Total Protein 5.9 L Albumin 3.7 Globulin 2.2 Albumin/Globulin Ratio 1.7 Triglycerides 153 Cholesterol 157 LDL Cholesterol 78 HDL Cholesterol 48.8 TSH 8.65 H Cortisol Urine Color Urine Appearance Urine pH Ur Specific [place] Urine Protein Urine Ketones Urine Blood Urine Nitrate Urine Bilirubin Urine Urobilinogen Ur Leukocyte Esterase Urine WBC (Auto) Urine RBC (Auto) Urine Bacteria Urine Glucose Urine Opiates Screen Ur Barbiturates Screen Ur Phencyclidine Scrn Ur Amphetamines Screen U Benzodiazepines Scrn Urine Cocaine Screen U Cannabinoids Screen Blood Type Antibody Screen 12/21/17 12/21/17 12/21/17 13:05 16:10 18:15 WBC RBC Hgb Hct MCV MCH MCHC RDW Plt Count MPV Neut % (Auto) Lymph % (Auto) Rice % (Auto) Eos % (Auto) Baso % (Auto) Absolute Neuts (auto) Absolute Lymphs (auto) Absolute Monos (auto) Absolute Eos (auto) Absolute Basos (auto) Absolute Nucleated RBC Nucleated RBC % INR (Anticoag Therapy) APTT POC Activ Clotting Time Patient Temperature Not Reportable ABG pH 7.32 L ABG pH (Temp Correct) Not Reportable ABG pCO2 38 ABG pCO2 (Temp Corrct Not Reportable ABG pO2 381 H ABG pO2 (Temp Correct Not Reportable ABG HCO3 20.2 ABG O2 Saturation 99.9 H ABG Base Excess -6.0 L VBG pH VBG pCO2 VBG pO2 VBG HCO3 VBG O2 Saturation VBG Base Excess Respiration Rate 12 O2 Delivery Device Ventilator Type 500 Vent Mode Not Reportable FiO2 100 Inspiratory Time Not Reportable PEEP 5 Pressure Support Not Reportable Pressure Control Not Reportable EPAP Not Reportable IPAP Not Reportable BiPAP Not Reportable Sodium Potassium Chloride Carbon Dioxide Anion Gap BUN Creatinine Est GFR ( Amer) Est GFR (Non-Af Amer) BUN/Creatinine Ratio Glucose Hemoglobin A1c Lactic Acid Calcium Magnesium Total Bilirubin Direct Bilirubin Indirect Bilirubin AST ALT Alkaline Phosphatase Total Creatine Kinase CK-MB (CK-2) Troponin I B-Natriuretic Peptide Total Protein Albumin Globulin Albumin/Globulin Ratio Triglycerides Cholesterol LDL Cholesterol HDL Cholesterol TSH Cortisol Urine Color Urine Appearance Urine pH Ur Specific [place] Urine Protein Urine Ketones Urine Blood Urine Nitrate Urine Bilirubin Urine Urobilinogen Ur Leukocyte Esterase Urine WBC (Auto) Urine RBC (Auto) Urine Bacteria Urine Glucose Urine Opiates Screen None detected Ur Barbiturates Screen None detected Ur Phencyclidine Scrn None detected Ur Amphetamines Screen None detected U Benzodiazepines Scrn None detected Urine Cocaine Screen Presumptive positive A U Cannabinoids Screen None detected Blood Type A Negative Antibody Screen Negative 12/21/17 12/21/17 12/21/17 19:15 20:10 20:56 WBC RBC Hgb Hct MCV MCH MCHC RDW Plt Count MPV Neut % (Auto) Lymph % (Auto) Rice % (Auto) Eos % (Auto) Baso % (Auto) Absolute Neuts (auto) Absolute Lymphs (auto) Absolute Monos (auto) Absolute Eos (auto) Absolute Basos (auto) Absolute Nucleated RBC Nucleated RBC % INR (Anticoag Therapy) APTT POC Activ Clotting Time 217 Patient Temperature ABG pH 7.09 L* ABG pH (Temp Correct) ABG pCO2 58 H ABG pCO2 (Temp Corrct ABG pO2 < 33 L* ABG pO2 (Temp Correct ABG HCO3 13.8 L ABG O2 Saturation 45.0 L ABG Base Excess -12.5 L VBG pH VBG pCO2 VBG pO2 VBG HCO3 VBG O2 Saturation VBG Base Excess Respiration Rate O2 Delivery Device Ventilator Type Vent Mode FiO2 Inspiratory Time PEEP Pressure Support Pressure Control EPAP IPAP BiPAP Sodium Potassium Chloride Carbon Dioxide Anion Gap BUN Creatinine Est GFR ( Amer) Est GFR (Non-Af Amer) BUN/Creatinine Ratio Glucose Hemoglobin A1c Lactic Acid Calcium Magnesium Total Bilirubin Direct Bilirubin Indirect Bilirubin AST ALT Alkaline Phosphatase Total Creatine Kinase CK-MB (CK-2) Troponin I 13.58 H* B-Natriuretic Peptide Total Protein Albumin Globulin Albumin/Globulin Ratio Triglycerides Cholesterol LDL Cholesterol HDL Cholesterol TSH Cortisol Urine Color Urine Appearance Urine pH Ur Specific [place] Urine Protein Urine Ketones Urine Blood Urine Nitrate Urine Bilirubin Urine Urobilinogen Ur Leukocyte Esterase Urine WBC (Auto) Urine RBC (Auto) Urine Bacteria Urine Glucose Urine Opiates Screen Ur Barbiturates Screen Ur Phencyclidine Scrn Ur Amphetamines Screen U Benzodiazepines Scrn Urine Cocaine Screen U Cannabinoids Screen Blood Type Antibody Screen 12/21/17 12/22/17 12/22/17 23:00 00:20 00:20 WBC RBC Hgb Hct MCV MCH MCHC RDW Plt Count MPV Neut % (Auto) Lymph % (Auto) Rice % (Auto) Eos % (Auto) Baso % (Auto) Absolute Neuts (auto) Absolute Lymphs (auto) Absolute Monos (auto) Absolute Eos (auto) Absolute Basos (auto) Absolute Nucleated RBC Nucleated RBC % INR (Anticoag Therapy) APTT POC Activ Clotting Time Patient Temperature ABG pH ABG pH (Temp Correct) ABG pCO2 ABG pCO2 (Temp Corrct ABG pO2 ABG pO2 (Temp Correct ABG HCO3 ABG O2 Saturation ABG Base Excess VBG pH VBG pCO2 VBG pO2 VBG HCO3 VBG O2 Saturation VBG Base Excess Respiration Rate O2 Delivery Device Ventilator Type Vent Mode FiO2 Inspiratory Time PEEP Pressure Support Pressure Control EPAP IPAP BiPAP Sodium 139 Potassium 3.3 L Chloride 106 Carbon Dioxide 17 L Anion Gap 16 H BUN 21 Creatinine 1.30 H Est GFR ( Amer) 70.7 Est GFR (Non-Af Amer) 58.4 BUN/Creatinine Ratio 16.2 Glucose 350 H Hemoglobin A1c Lactic Acid 8.5 H* Calcium 6.5 L Magnesium Total Bilirubin Direct Bilirubin Indirect Bilirubin AST ALT Alkaline Phosphatase Total Creatine Kinase 7404 H CK-MB (CK-2) 336.8 H Troponin I B-Natriuretic Peptide Total Protein Albumin Globulin Albumin/Globulin Ratio Triglycerides Cholesterol LDL Cholesterol HDL Cholesterol TSH Cortisol 45.21 Urine Color Yellow Urine Appearance Clear Urine pH 5.0 Ur Specific [place] 1.012 Urine Protein Negative Urine Ketones Negative Urine Blood 3+ A Urine Nitrate Negative Urine Bilirubin Negative Urine Urobilinogen Negative Ur Leukocyte Esterase Negative Urine WBC (Auto) Trace(0-5/hpf) Urine RBC (Auto) Trace(0-2/hpf) Urine Bacteria Absent Urine Glucose 3+(>=500 mg/dl) A Urine Opiates Screen Ur Barbiturates Screen Ur Phencyclidine Scrn Ur Amphetamines Screen U Benzodiazepines Scrn Urine Cocaine Screen U Cannabinoids Screen Blood Type Antibody Screen 12/22/17 12/22/17 12/22/17 00:20 00:20 00:20 WBC RBC Hgb Hct MCV MCH MCHC RDW Plt Count MPV Neut % (Auto) Lymph % (Auto) Rice % (Auto) Eos % (Auto) Baso % (Auto) Absolute Neuts (auto) Absolute Lymphs (auto) Absolute Monos (auto) Absolute Eos (auto) Absolute Basos (auto) Absolute Nucleated RBC Nucleated RBC % INR (Anticoag Therapy) APTT POC Activ Clotting Time Patient Temperature ABG pH ABG pH (Temp Correct) ABG pCO2 ABG pCO2 (Temp Corrct ABG pO2 ABG pO2 (Temp Correct ABG HCO3 ABG O2 Saturation ABG Base Excess VBG pH 7.15 L VBG pCO2 48 VBG pO2 39 VBG HCO3 14.7 L VBG O2 Saturation 66.7 L VBG Base Excess -12.0 L Respiration Rate O2 Delivery Device Ventilator Type Vent Mode FiO2 Inspiratory Time PEEP Pressure Support Pressure Control EPAP IPAP BiPAP Sodium Potassium Chloride Carbon Dioxide Anion Gap BUN Creatinine Est GFR ( Amer) Est GFR (Non-Af Amer) BUN/Creatinine Ratio Glucose Hemoglobin A1c 5.4 Lactic Acid Calcium Magnesium Total Bilirubin Direct Bilirubin Indirect Bilirubin AST ALT Alkaline Phosphatase Total Creatine Kinase CK-MB (CK-2) Troponin I B-Natriuretic Peptide Total Protein Albumin Globulin Albumin/Globulin Ratio Triglycerides Cholesterol LDL Cholesterol HDL Cholesterol TSH 1.83 Cortisol Urine Color Urine Appearance Urine pH Ur Specific [place] Urine Protein Urine Ketones Urine Blood Urine Nitrate Urine Bilirubin Urine Urobilinogen Ur Leukocyte Esterase Urine WBC (Auto) Urine RBC (Auto) Urine Bacteria Urine Glucose Urine Opiates Screen Ur Barbiturates Screen Ur Phencyclidine Scrn Ur Amphetamines Screen U Benzodiazepines Scrn Urine Cocaine Screen U Cannabinoids Screen Blood Type Antibody Screen 12/22/17 12/22/17 12/22/17 00:30 03:38 06:30 WBC RBC Hgb Hct MCV MCH MCHC RDW Plt Count MPV Neut % (Auto) Lymph % (Auto) Rice % (Auto) Eos % (Auto) Baso % (Auto) Absolute Neuts (auto) Absolute Lymphs (auto) Absolute Monos (auto) Absolute Eos (auto) Absolute Basos (auto) Absolute Nucleated RBC Nucleated RBC % INR (Anticoag Therapy) 1.06 H APTT 27.3 POC Activ Clotting Time Patient Temperature 34.2c ABG pH 7.24 L ABG pH (Temp Correct) Not Reportable ABG pCO2 30 L ABG pCO2 (Temp Corrct Not Reportable ABG pO2 254 H ABG pO2 (Temp Correct Not Reportable ABG HCO3 14.6 L ABG O2 Saturation 99.3 H ABG Base Excess -13.2 L VBG pH VBG pCO2 VBG pO2 VBG HCO3 VBG O2 Saturation VBG Base Excess Respiration Rate 14 O2 Delivery Device Ventilator Type 500 Vent Mode Apv/cmv FiO2 80 Inspiratory Time Not Reportable PEEP 5 Pressure Support Not Reportable Pressure Control Not Reportable EPAP Not Reportable IPAP Not Reportable BiPAP Not Reportable Sodium 137 Potassium 3.1 L Chloride 104 Carbon Dioxide 17 L Anion Gap 16 H BUN 19 Creatinine 1.21 H Est GFR ( Amer) 76.8 Est GFR (Non-Af Amer) 63.5 BUN/Creatinine Ratio 15.7 Glucose 373 H Hemoglobin A1c Lactic Acid Calcium 6.8 L Magnesium Total Bilirubin Direct Bilirubin Indirect Bilirubin AST ALT Alkaline Phosphatase Total Creatine Kinase 9683 H CK-MB (CK-2) 446.1 H Troponin I > 81.00 H* B-Natriuretic Peptide Total Protein Albumin Globulin Albumin/Globulin Ratio Triglycerides Cholesterol LDL Cholesterol HDL Cholesterol TSH Cortisol Urine Color Urine Appearance Urine pH Ur Specific [place] Urine Protein Urine Ketones Urine Blood Urine Nitrate Urine Bilirubin Urine Urobilinogen Ur Leukocyte Esterase Urine WBC (Auto) Urine RBC (Auto) Urine Bacteria Urine Glucose Urine Opiates Screen Ur Barbiturates Screen Ur Phencyclidine Scrn Ur Amphetamines Screen U Benzodiazepines Scrn Urine Cocaine Screen U Cannabinoids Screen Blood Type Antibody Screen 12/22/17 12/22/17 12/22/17 06:30 06:30 06:30 WBC 12.3 H RBC 4.12 Hgb 13.1 L Hct 39 L MCV 93 MCH 32 H MCHC 34 RDW 14 Plt Count 161 MPV 7.3 L Neut % (Auto) 90.4 H Lymph % (Auto) 3.9 L Rice % (Auto) 5.5 Eos % (Auto) 0 Baso % (Auto) 0.2 Absolute Neuts (auto) 11.1 H Absolute Lymphs (auto) 0.5 L Absolute Monos (auto) 0.7 Absolute Eos (auto) 0 Absolute Basos (auto) 0 Absolute Nucleated RBC 0 Nucleated RBC % 0 INR (Anticoag Therapy) APTT POC Activ Clotting Time Patient Temperature ABG pH ABG pH (Temp Correct) ABG pCO2 ABG pCO2 (Temp Corrct ABG pO2 ABG pO2 (Temp Correct ABG HCO3 ABG O2 Saturation ABG Base Excess VBG pH VBG pCO2 VBG pO2 VBG HCO3 VBG O2 Saturation VBG Base Excess Respiration Rate O2 Delivery Device Ventilator Type Vent Mode FiO2 Inspiratory Time PEEP Pressure Support Pressure Control EPAP IPAP BiPAP Sodium Potassium Chloride Carbon Dioxide Anion Gap BUN Creatinine Est GFR ( Amer) Est GFR (Non-Af Amer) BUN/Creatinine Ratio Glucose Hemoglobin A1c Lactic Acid 7.7 H* Calcium Magnesium Total Bilirubin 0.50 Direct Bilirubin 0.10 Indirect Bilirubin 0.4 AST 683 H ALT 176 H Alkaline Phosphatase 75 Total Creatine Kinase CK-MB (CK-2) Troponin I B-Natriuretic Peptide Total Protein 5.3 L Albumin 3.4 Globulin 1.9 L Albumin/Globulin Ratio 1.8 Triglycerides Cholesterol LDL Cholesterol HDL Cholesterol TSH Cortisol Urine Color Urine Appearance Urine pH Ur Specific [place] Urine Protein Urine Ketones Urine Blood Urine Nitrate Urine Bilirubin Urine Urobilinogen Ur Leukocyte Esterase Urine WBC (Auto) Urine RBC (Auto) Urine Bacteria Urine Glucose Urine Opiates Screen Ur Barbiturates Screen Ur Phencyclidine Scrn Ur Amphetamines Screen U Benzodiazepines Scrn Urine Cocaine Screen U Cannabinoids Screen Blood Type Antibody Screen 12/22/17 12/22/17 12/22/17 06:30 06:40 09:15 WBC RBC Hgb Hct MCV MCH MCHC RDW Plt Count MPV Neut % (Auto) Lymph % (Auto) Rice % (Auto) Eos % (Auto) Baso % (Auto) Absolute Neuts (auto) Absolute Lymphs (auto) Absolute Monos (auto) Absolute Eos (auto) Absolute Basos (auto) Absolute Nucleated RBC Nucleated RBC % INR (Anticoag Therapy) APTT POC Activ Clotting Time Patient Temperature 35.2c ABG pH 7.30 L ABG pH (Temp Correct) Not Reportable ABG pCO2 30 L ABG pCO2 (Temp Corrct Not Reportable ABG pO2 158 H ABG pO2 (Temp Correct Not Reportable ABG HCO3 16.9 L ABG O2 Saturation 98.7 H ABG Base Excess -10.3 L VBG pH 7.22 L VBG pCO2 43 VBG pO2 34 L VBG HCO3 16.3 L VBG O2 Saturation 63.8 L VBG Base Excess -9.8 L Respiration Rate 13 O2 Delivery Device Ventilator Type 500 Vent Mode Apv/cmv FiO2 50 Inspiratory Time Not Reportable PEEP 5 Pressure Support Not Reportable Pressure Control Not Reportable EPAP Not Reportable IPAP Not Reportable BiPAP Not Reportable Sodium 138 Potassium 3.3 L Chloride 107 Carbon Dioxide 20 L Anion Gap 11 BUN 19 Creatinine 1.05 Est GFR ( Amer) 90.5 Est GFR (Non-Af Amer) 74.8 BUN/Creatinine Ratio 18.1 Glucose 354 H Hemoglobin A1c Lactic Acid Calcium 6.8 L Magnesium Total Bilirubin Direct Bilirubin Indirect Bilirubin AST ALT Alkaline Phosphatase Total Creatine Kinase 33658 H CK-MB (CK-2) 431.0 H Troponin I > 81.00 H* B-Natriuretic Peptide Total Protein Albumin Globulin Albumin/Globulin Ratio Triglycerides Cholesterol LDL Cholesterol HDL Cholesterol TSH Cortisol Urine Color Urine Appearance Urine pH Ur Specific [place] Urine Protein Urine Ketones Urine Blood Urine Nitrate Urine Bilirubin Urine Urobilinogen Ur Leukocyte Esterase Urine WBC (Auto) Urine RBC (Auto) Urine Bacteria Urine Glucose Urine Opiates Screen Ur Barbiturates Screen Ur Phencyclidine Scrn Ur Amphetamines Screen U Benzodiazepines Scrn Urine Cocaine Screen U Cannabinoids Screen Blood Type Antibody Screen Imagin/2 cxr - ett above loco, ngt+; no clear infiltrate or ptx noted. 12/21 CT brain - no acute findings of hemorrhage or infarct noted. Assessment: 52y M pmhx of smoking; recent ER visit [facility] for right wrist radial fracture. Today unclear if witnessed collapsed but called by someone for unresponsiveness. out of hospital VT/VF arrest, then asystole and PEA. ROSC achieved prior to ER arrival, approx ~40min downtime. Recurrent VT developing. -VT/VF cardiac arrest, out of hospital -RCA occlusion, s/p PCI to prox/mid RCA BMS 12/21 -Cardiogenic Shock 2/2 to acute LV systolic dysfunction -Acute Respiratory failure -hypoxic/ischemic encephalopathy -LAUREN -shock liver Plan: Neuro- on propofol/precedex/demerol for shivering and sedation; possible seizures; obtain eeg now; ativan prn and stat. no plan for weaning yet. neuro consult called. plan for repeat CT brain tomorrow. will keep mild hypothermia with prevention of fevers for neuroprotection. CVS- cardiogenic shock 2/2 to acute RCA occlusion; s/p PCI 12/21; maintain IABP 1: 1. Mixed venous improving, BP improved. Weaning pressors. will slowly decrease epi and as tolerated, maintian urine output. hold IVF for now, if dec urine outputl, will start IVF NS infusion. Replete K. cont DAPT for coronary stent. will decide with cardiology about IV heparin for IABP later today. cont statin. Maintian urine output currently. Plan for TTE tomorrow. cont Amio 0.5mg/min. Decreasing lido infusion, on 1mg/min now; will try to d/c later today. Resp- intubated, noted abg with metabolic acidosis with resp compensation. no change to vent today, on fio2 50%. CXR without infiltrate/ptx. VAP bundle. ID- hypothermic. on pressors. no clear infiltrate on CXR, but at risk of aspiration. improving hemodynamics. will hold abx for now. GI- NPO today. NGT+. had some coffee ground post code yesterday but has been clear since, suspect aspirated blood +/- gastritis. hg stable. Will cont IV protonix for now. noted LFTs elevated, suspect ischemic injury/shock liver, will monitor. check ammonia level tomorrow given alcohol use history. start thiamine/folate IV. Renal- LAUREN; improving; likley from shock/hypoperfusion. Making good amounts of urine. Start IVF infusion if it falls off. vyas+. Replete KCL IV. Noted metabolic acidosis 2/2 to hypoperfusion/shock, improving LA now. Heme- hg stable. plt stable. Cont DAPT for Coronary stents. start sq Heparin or IV heparin today. Endo- hyperglycemia; hba1c 5.4. likely due to ongoing infusions of d5w. tsh normal. fingersticks q6h, may require IV insulin infusion. Musculsk- bedrest, pressure ulcer prophylaxis Wounds- none Nutrition- NPO DVT prophylaxis: SCDs, SQ heparin GI prophylaxis: PPI Central Line: left IJ 7/2, left fem 7/2 Arterial Line: left radial 7/2, left fem iabp 7/2 Vyas Cathetor: yes Disposition: ICU critically ill; unclear neurological status, discussed with brother at bedside current status and possibility of severe neurological brain injury. Code Status: full code Total Critical Care time is 60 minutes, excluding procedures/teaching Tobi Grace MD [employer] (Electronically Signed)
[2017-12-22] MEDS ORDERED: LORazepam INJ* 2 MG/ML 1 ML VIAL IV PUSH PRN (11:37)
[2017-12-22] MEDS ORDERED: LORazepam INJ* 2 MG/ML 1 ML VIAL ONE (11:39)
[2017-12-22] MEDS: Dexmedetomidine* 400 MCG in NS 0.9% 100 ML* 96 ML IVPB SCH ×2 (11:54→21:39)
--- NOTE | 2017-12-22 11:55 | CATH ---
CC: Dr. Crane CARDIAC CATHETERIZATION: DATE OF PROCEDURE: 12/21/17 PROCEDURE: Right femoral artery catheterization, coronary angiography, left femoral artery catheteri zation, intraaortic balloon pump placement. HISTORY: The patient is a 52-year-old gentleman who had a witnessed arrest in the field and received defibrillations x3 within 8 minutes of collapse by [employer] [place] [employer], was brought to the emerge ncy room. Initially, his EKG and echocardiogram were unremarkable for ischemia. The patient went up to the intensive care unit. The patient had multiple episodes of ventricular fibrillation. Ultimat maria victoria, the decision was to have the patient undergo cardiac catheterization. At the time of transport from the ICU, the patient was on propofol, Levophed, IV Adonay-Synephrine, dobutamine, IV amiodarone, IV lidocaine, and his blood pressure was 70/50. The patient was intubated and sedated. Consent was ob tained from the patient's brother. DESCRIPTION OF PROCEDURE: The patient was brought to the cardiac catheterization lab in an unstable state. The patient was on multiple pressors and was hypotensive. The patient's femoral areas were c leaned and draped in the usual fashion. 1% lidocaine was used for local anesthesia. The right femor al artery was entered by a modified Seldinger technique and a guidewire was placed. Over the guidewi re, a 6-Samoan sheath introducer was placed. The patient underwent coronary angiography using a 6-Fr ench JL5 catheter and a 6-Samoan JR4 catheter. After that, the left femoral artery was entered by mo dified Seldinger technique and an 8-Samoan sheath introducer was placed, through which a 40 cc intraa ortic balloon pump was placed under fluoroscopic guidance up to the aortic arch and began insufflatin g appropriately. Both femoral sheath and the intraaortic balloon pump were sutured into position. T he patient went on to angioplasty and stenting of his right coronary artery by Dr. Crane. Please se e that report for details. A total of 80 cc of Visipaque dye was used. A total of 8.8 minutes of fl uoro time was used. FINDINGS: Initial aortic blood pressure 98/63 with a mean of 80. Left main artery. The left main had mild calcification, it bifurcated into the LAD and circumflex. There was no evidence of stenosis. Left anterior descending artery. The LAD was normal in size. It had moderate calcification in the m id vessel. The mid LAD had a long 50% stenosis. The distal LAD had a 40% stenosis, it had 2 diagona l vessels that were without disease. The distal LAD was without disease. Left circumflex artery. The circumflex artery was normal in size. It gave off 1 large branching obt use marginal. The circumflex itself was without disease. The proximal obtuse marginal had a long 50 % stenosis. A superior branch of the OM had an ostial 60% stenosis. Right coronary artery. The RCA was occluded in its mid vessel with no collateral flow. IMPRESSION: 1. Occluded right coronary artery. 2. Mild disease to the left anterior descending and left circumflex artery. 3. Intraaortic balloon pump placed for refractory hypotension. RECOMMENDATION: The patient will go onto stenting of the right coronary artery. [id number]/[facility] #: [id number]
[2017-12-22] MEDS ORDERED: Pantoprazole IV* 40 MG IV SCH (12:00)
[2017-12-22] MEDS: Heparin VIAL(*) 5000 UNITS/ML VIAL (FIVE THOUSAND) SUBCUT SCH ×2 (14:08→20:55)
[2017-12-22] MEDS: Chlorhexidine MOUTHWASH 0.12%* 15 ML UDC TOPICAL SCH ×4 (14:09→23:51)
[2017-12-22] MEDS ORDERED: NS 0.9% 50 ML* 50 ML ONE ×2 (16:08→18:25)
[2017-12-22] MEDS ORDERED: Magnesium Sulfate IV* 2 GM in NS 0.9% 100 ML* 100 ML IVPB ONE (17:00)
[2017-12-22 18:58] LABS: EGFR Non-African American 113.7 (>60)
[2017-12-22] MEDS: Folic Acid IV* 1 MG in NS 0.9% 50 ML* 50 ML IVPB SCH (20:04)
[2017-12-22] MEDS: Thiamine IV* 100 MG in NS 0.9% 50 ML* 50 ML IV SCH (20:40)
--- NOTE | 2017-12-22 21:43 | CATH ---
STENT REPORT: ADDENDUM: DATE OF PROCEDURE: 12/21/17 I neglected to dictate the angiography portion, so please insert that in the first part of the report . ANGIOGRAPHY: See Dr. Torres's full report. RCA: The RCA is dominant, occluded in its mid portion without antegrade flow. Right common femoral a rtery sheath entry is in segment 2. Second right coronary injection demonstrates antegrade flow with MARY II flow in the RCA with high-grade mid RCA stenosis, insignificant stenosis at the acute margin . After stent placement, post dilatation, the RCA has MARY III flow, fills a moderate PDA and smalle r posterolateral. There is no residual stenosis. CONCLUSION: 1. Successful stent placement RCA occlusion in a patient with recurring VF arrest, innumerable recur ring episodes of VF requiring counter shock, and progression to cardiogenic shock requiring numerous pressors. 2. AngioSeal successful right common femoral artery. [id number]/[facility] #: [id number]
--- NOTE | 2017-12-22 22:00 | CATH ---
CC: Dr. Torres. STENT REPORT: DATE OF PROCEDURE: 12/21/17 CASING BUILDER: Dr. Torres. PROCEDURE: Stent placement RCA 2.75 x 28 bare-metal stent, Angio-Seal right common femoral artery. HISTORY: A 52-year-old male brought to the ER after in the field VF arrest with prolonged downtime, subsequent resuscitation. Subsequently, in the ER, he had normal LV function without wall motion abn ormality on echo, no injury current, initial troponin was negative. Clinically, there was no evidenc e of infarct. He was admitted to the ICU where he continued to have episodes of recurring VF requiri ng a large number of IV anti-arrhythmics and numerable counter shocks. He eventually became hypotens doroteo with worsening LV function on echo, was brought by Dr. Torres to the warehouse general laborer for a diagnostic cor onary angiography and possible balloon pump placement as a desperate measure to prevent progression o f cardiogenic shock to . Diagnostic catheterization by Dr. Torres demonstrated RCA occlusion. T he patient was on IV Levophed, Adonay-Synephrine, epinephrine, and dobutamine. A balloon pump had been placed in the left common femoral artery with good augmentation. It is unclear whether the RCA occlu dario was primary or secondary, but was revascularized in an effort to maximize his chance for surviva l in the setting of severe hypotension requiring numerous pressors. PROCEDURE ACCESS: Right common femoral sheath placed by Dr. Torres. INTERVENTIONAL MEDICATIONS: 1. Brilinta 180 mg crushed via the NG tube. 2. Heparin 6000 units, 2000 units IV. 3. Continued propofol sedation. GUIDING CATHETER: 6F R4, wire 14 BMW. The RCA occlusion was easily crossed, had antegrade flow on t he second image. A 2.75 x 28 bare-metal stent was deployed at 11 atmospheres for 10 seconds, chosen because of uncertain prognosis, uncertain chance of neurologic recovery, and uncertain likelihood of bleeding in the ICU. The sent was post dilated with a 2.75 x 20 NC balloon in an overlapping fashion, 20 atmospheres for 30 seconds x2. The right femoral artery was closed with Angio- Seal. We were ab le to wean his Levophed from 30 mcg/minute to 10 mcg/minute by the time he left the warehouse general laborer. CONCLUSION: Successful bare-metal stent placement RCA as a desperate life-saving measure in a patien t with VF arrest with numerous recurring episodes of VF requiring numerous counter shocks and subsequ ent development of cardiogenic shock requiring numerous pressors. [id number]/[facility] #: [id number]
[2017-12-22] MEDS ORDERED: NS 0.9% 500 ML* 500 ML IV ONE (22:20)
[2017-12-22] MEDS: DOBUTamine 2000 MCG/ML IVPREMX 500 MG/250 ML BAG IV SCH (22:24)
[2017-12-23] MEDS: Propofol* 100 ML IVPB SCH ×6 (00:56→20:44)
[2017-12-23] MEDS: fentaNYL* 50 MCG/ML 2 ML VIAL (100 MCG VIAL) IV PRN (01:24)
[2017-12-23] MEDS: KCL 20 MEQ/100 ML IVPREMIX* 20 MEQ/100 ML BAG IV SCH (01:59)
[2017-12-23] MEDS: Chlorhexidine MOUTHWASH 0.12%* 15 ML UDC TOPICAL SCH ×6 (03:58→23:50)
[2017-12-23] MEDS: Heparin VIAL(*) 5000 UNITS/ML VIAL (FIVE THOUSAND) SUBCUT SCH ×3 (05:45→23:09)
[2017-12-23 05:47] LABS: Hematocrit 34 % (42-52); Hemoglobin 12.1 g/dl (14.0-18.0); Mean Corpuscular HGB Conc 36 g/dl (31-36); Mean Corpuscular Hemoglobin 33 pg (27-31); Mean Corpuscular Volume 91 fL (80-94); Mean Platelet Volume 7.6 um3 (7.4-10.4); Platelet Count 121 10^3/ul (150-450); Red Blood Count 3.71 10^6/ul (4.00-5.40); Red Cell Distribution Width 14 % (10.5-15); White Blood Count 8.1 10^3/ul (3.5-10.8)
[2017-12-23 05:57] LABS: INR 0.96 (0.77-1.02)
[2017-12-23 06:04] LABS: EGFR Non-African American 108.6 (>60)
[2017-12-23] MEDS: Epinepherine DRIP 4 mcg/ml 250 mls (dosed in mcg/kg/min) IVPB SCH ×2 (07:12→13:49)
--- NOTE | 2017-12-23 07:22 | RAD ---
INDICATION: Cough and increased secretions COMPARISON: December 22, 2017 TECHNIQUE: An AP supine portable view obtained at 0610 hours is submitted. FINDINGS: Bones/Soft Tissues: There are no acute bony findings. Tubes and catheters unchanged in positions. Endotracheal tube at the level the clavicles. Cardiomediastinal: The cardiomediastinal silhouette is normal. Lungs: Mild interstitial and early alveolar change with mild worsening aeration. Pleura: No significant effusions. Other: None IMPRESSION: INTERSTITIAL CHANGE. DEVELOPING ALVEOLAR OPACITIES. SUGGEST CLOSE FOLLOW-UP
[2017-12-23] MEDS ORDERED: NS 0.9% 50 ML* 50 ML ONE ×2 (08:46)
[2017-12-23] MEDS: Thiamine IV* 100 MG in NS 0.9% 50 ML* 50 ML IV SCH (08:53)
[2017-12-23] MEDS: Pantoprazole IV* 40 MG IV SCH (08:53)
[2017-12-23] MEDS: Folic Acid IV* 1 MG in NS 0.9% 50 ML* 50 ML IVPB SCH (08:53)
[2017-12-23] MEDS: Aspirin 81 mg CHEW TAB* 81 MG TAB.CHEW NG TUBE SCH (08:54)
[2017-12-23] MEDS: Ticagrelor* 90 MG TAB PO SCH ×2 (08:54→20:44)
[2017-12-23] MEDS: Dexmedetomidine* 400 MCG in NS 0.9% 100 ML* 96 ML IVPB SCH (09:19)
--- NOTE | 2017-12-23 09:30 | ECHO ---
Patient: ANTHONY CUMMINGS [facility] Rec#: [id number] : 1965 Date: 12/23/2017 Age: 52y Height: 182.9 cm / 72.0 in Weight: 79.8 kg / 175.9 lbs Sex: M BSA: 2 Room#: ICU 1 Admit Date#: 12/21/2017 Type: Inpatient Referring: Lamine Torres MD Reading: Lamine Torres MD [facility] Tutor: Lea Cronin RN RDCS Transthoracic Echocardiogram Indication: S/P PCI to RCA, cardiogenic shock BP: 136/95 HR: 81 Rhythm: NSR Findings History: Cardiac arrest, S/P PCI to RCA, cardiogenic shock, repiratory failure. Currently on mechanical ventilation, vasopressors, and IABP. Technical Comments: The study quality is fair. The study is technically limited due to poor acoustic windows. The study is technically limited due to patient being intubated and on a ventilator. Left Ventricle: The left ventricular chamber size is normal. There is no left ventricular hypertrophy. There is increased basal septal hypertrophy noted without evidence of an increased gradient across the left ventricular outflow tract. There is a focal wall motion abnormality present. There is mildly decreased left ventricular systolic function. The estimated ejection fraction is 40-45%. Abnormal left ventricular diastolic filling is observed, consistent with impaired relaxation. The mid inferior, apical septal, and apical inferior wall segments are hypokinetic (score 2). The mid inferoseptal wall segment is akinetic (score 3). Overall wallmotion score index is 2.25 Left Atrium: The left atrial chamber size is normal. Right Ventricle: The right ventricular cavity size is normal. The right ventricular global systolic function is low normal. Right Atrium: The right atrial cavity size is normal. Aortic Valve: The aortic valve leaflets are mildly thickened. There is no evidence of aortic regurgitation. There is no evidence of aortic stenosis. Mitral Valve: The mitral valve leaflets are mildly thickened. There is mild mitral regurgitation. There is no evidence of mitral stenosis. Tricuspid Valve: The tricuspid valve leaflets are normal. There is trace tricuspid regurgitation. Unable to estimate the right ventricular systolic pressure. There is no tricuspid stenosis. Pulmonic Valve: The pulmonic valve structure is not well visualized. There is no evidence of pulmonic regurgitation. There is no pulmonic stenosis. Pericardium: There is no significant pericardial effusion. Aorta: The ascending aorta is not well visualized. The aortic arch is not well visualized. There is no dilation of the aortic root. Pulmonary Artery: The main pulmonary artery is not well visualized. Venous: Unable to accurately comment on the size collapsibility of the IVC as the patient in known to be on mechanical ventilation. Conclusions There is no left ventricular hypertrophy. There is mildly decreased left ventricular systolic function. The estimated ejection fraction is 40-45%. The mid inferior, apical septal, and apical inferior wall segments are hypokinetic (score 2). The mid inferoseptal wall segment is akinetic (score 3). The right ventricular global systolic function is low normal. There is mild mitral regurgitation. There is trace tricuspid regurgitation. Unable to estimate the right ventricular systolic pressure. There is no significant pericardial effusion. Measurements Name Value Normal Range RVDdMajor (2D) 2.9 cm (2.2 - 4.4) RAd ISD 4CH 4.6 cm (3.4 - 4.9) RA (A4C)W 4.2 cm (2.9 - 4.6) IVSd (2D) 1.2 cm (0.6 - 1) LVPWd (2D) 0.9 cm (0.6 - 1) LVIDd (2D) 4 cm (3.6 - 5.4) Aortic Annulus 2.1 cm (1.4 - 2.6) Ao root diameter (2D) 3.5 cm (2.1 - 3.5) LA dimension (AP) 2D 3.1 cm (2.3 - 3.8) LAd ISD 4CH 4.7 cm (2.9 - 5.3) LA ISD 4CH W 4.1 cm (2.5 - 4.5) Name Value Normal Range LA ESV SP 4CH (A/L) 42 ml - LA ESV SP 2CH (A/L) 48 ml - LA ESV BP (A/L) 47 ml - LA ESV BP (A/L) index 23.2 ml/m2 - LA ESV SP 4CH (MOD) 35 ml - LA ESV SP 2CH (MOD) 46 ml - Name Value Normal Range MV E-wave Vmax 0.65 m/sec - MV deceleration time 202 msec - MV A-wave Vmax 0.73 m/sec - MV E:A ratio 0.9 ratio - LV septal e' Vmax 0.07 m/sec - LV lateral e' Vmax 0.13 m/sec - LV E:e' septal ratio 9.3 ratio - LV E:e' lateral ratio 5 ratio - Name Value Normal Range AV Vmax 1.5 m/sec - AV VTI 21.8 cm - AV peak gradient 8.9 mmHg - AV mean gradient 4.1 mmHg - LVOT Vmax 1.3 m/sec - LVOT VTI 19.7 cm - LVOT peak gradient 7.1 mmHg - LVOT mean gradient 3.2 mmHg - Name Value Normal Range IVC diameter 2.3 cm - Name Value Normal Range PV Vmax 1.1 m/sec - Wallmotion BAS Not Seen BA Not Seen BAL Not Seen CHEN Not Seen BI Not Seen BIS Not Seen MAS Not Seen MA Not Seen MAL Not Seen MIL Not Seen MA Hypokinetic MIS Akinetic Hypokinetic AA Not Seen AL Not Seen AI Hypokinetic APEX Not Seen
--- NOTE | 2017-12-23 10:28 | RAD ---
INDICATION: Encephalopathy. Cardiac arrest COMPARISON: CT brain December 21, 2017 TECHNIQUE: Noncontrast axial source images were acquired from the skull base to the vertex. FINDINGS: Ventricles/sulci: The ventricles and cisterns are normal in size and configuration for age. Brain parenchyma: There is no discrete focal parenchymal finding but there is a loss of normal atkinson-white differentiation. Intracranial hemorrhage:None. Extra-axial spaces: There are no abnormal extra axial fluid collections or evidence of extra-axial mass. Calvarium: There is no calvarial fracture or other calvarial abnormality. Scalp: There is no evidence of scalp or extracalvarial soft tissue abnormality. Paranasal sinuses/mastoid: There is pansinusitis with air-fluid levels in the ethmoid, maxillary, and sphenoid air cells. Other: There is endotracheal intubation. IMPRESSION: Loss of atkinson-white differentiation without change. Consider anoxic injury. Sinusitis.
--- NOTE | 2017-12-23 12:06 | PN ---
Date of Service: 12/23/17 - [facility] progress note Critical Care Services: Pt seen and examined bedside. Chart reviewed, detailed sign out obtained from prior machine printer hose. 24 hr events: Patient titrated off all pressors Is on dobutamine and IABP this morning, which was removed few minutes ago On Propofol and Precedex for sedation Has dark urine, UO has been steadily decreasing, @30cc/hr, received fluid bolus of 500 for decreased UO MAPs around 80-90s, Rewarming started Has required frequent suctioning last night CT brain repeated this am ECHO was repeated Vital Signs: Temp Pulse Resp BP SpO2 FiO2 97.5 F 68 18 144/80 100 40 12/23/17 08:00 12/23/17 11:00 12/23/17 08:00 12/23/17 11:00 12/23/17 11:00 12/23 08:00 Physical Exam: Gen: Pt is sedated, in NAD HEENT: Pupils- sluggish, ETT in place Lungs: Diminished air entry, no wheeze Cardiac: S1, S2+, regular Abdomen: Soft, BS+ Extremities: No edema Neuro: Unable to assess complete neuro status given sedation, has good cough reflex to suction IV access: Left radial A-line, Lt femoral CVC Tele: No further episodes of V.fib since yesterday. NSR, intermittent junctional rythm and PVCs noted Fluid Balance (Past 24 Hours): Y=2179 O= 3808 Net -1164 Intake & Output 12/21/17 12/22/17 12/23/17 12/24/17 06:59 06:59 06:59 06:59 Intake Total 7812.2 2644.0 Output Total 4270 3808 60 Balance 3542.2 -1164.0 -60 Weight 176 lb 12.972 oz 195 lb 1.745 oz Intake: IV Fluids 3000 577 NS (0.9%) 3000 577 IVPB 50 200 NS (0.9%) 50 folic acid 100 thiamine 100 Medicated IV 4762.2 1867.0 CC - Amiodarone 517 259 CC - Dobutamine 261 265 CC - Epinephrine 2110 457 CC - Lidocaine 547 CC - Norepinephrine/ 290 Levophed CC - Phenylephrine/ 625.4 16.5 Neosynephrine CC - Propofol/Diprivan 327 460 CC - Vasopressin/ 84.8 11.5 Pitressin KCl 313 precedex 85 Output: NG Tube Drainage Amount 450 G Tube 650 Nayak 4270 2708 60 Other: # Bowel Movements 1 Estimated Stool Amount Medium Labs: Laboratory Results - last 24 hr 12/22/17 12/22/17 12/22/17 09:15 11:31 18:15 WBC RBC Hgb Hct MCV MCH MCHC RDW Plt Count MPV INR (Anticoag Therapy) APTT VBG pH VBG pCO2 VBG pO2 VBG HCO3 VBG O2 Saturation VBG Base Excess Sodium Potassium Chloride Carbon Dioxide Anion Gap BUN Creatinine Est GFR ( Amer) Est GFR (Non-Af Amer) BUN/Creatinine Ratio Glucose Lactic Acid 4.5 H* 1.1 Calcium Phosphorus 2.8 Magnesium 1.5 L Total Bilirubin Direct Bilirubin Indirect Bilirubin AST ALT Alkaline Phosphatase Ammonia Troponin I Total Protein Albumin Globulin Albumin/Globulin Ratio 12/22/17 12/22/17 12/22/17 18:15 21:10 21:10 WBC RBC Hgb Hct MCV MCH MCHC RDW Plt Count MPV INR (Anticoag Therapy) APTT VBG pH 7.37 VBG pCO2 45 VBG pO2 31 L VBG HCO3 24.4 VBG O2 Saturation 65.4 L VBG Base Excess 0.4 Sodium 140 Potassium 3.4 L Chloride 109 Carbon Dioxide 24 Anion Gap 7 BUN 14 Creatinine 0.73 Est GFR ( Amer) 137.6 Est GFR (Non-Af Amer) 113.7 BUN/Creatinine Ratio 19.2 Glucose 115 H Lactic Acid Calcium 7.5 L Phosphorus Magnesium Total Bilirubin Direct Bilirubin Indirect Bilirubin AST ALT Alkaline Phosphatase Ammonia Troponin I 71.17 H* Total Protein Albumin Globulin Albumin/Globulin Ratio 12/23/17 12/23/17 12/23/17 05:30 05:30 05:30 WBC RBC Hgb Hct MCV MCH MCHC RDW Plt Count MPV INR (Anticoag Therapy) 0.96 APTT 36.1 VBG pH VBG pCO2 VBG pO2 VBG HCO3 VBG O2 Saturation VBG Base Excess Sodium 138 Potassium 4.2 Chloride 108 Carbon Dioxide 24 Anion Gap 6 BUN 12 Creatinine 0.76 Est GFR ( Amer) 131.4 Est GFR (Non-Af Amer) 108.6 BUN/Creatinine Ratio 15.8 Glucose 91 Lactic Acid Calcium 8.0 L Phosphorus Magnesium Total Bilirubin 0.50 Direct Bilirubin 0.10 Indirect Bilirubin 0.4 AST 376 H ALT 135 H Alkaline Phosphatase 58 Ammonia 56 H Troponin I Total Protein 5.0 L Albumin 3.0 L Globulin 2.0 Albumin/Globulin Ratio 1.5 12/23/17 12/23/17 05:30 10:50 WBC 8.1 RBC 3.71 L Hgb 12.1 L Hct 34 L MCV 91 MCH 33 H MCHC 36 RDW 14 Plt Count 121 L MPV 7.6 INR (Anticoag Therapy) APTT VBG pH VBG pCO2 VBG pO2 VBG HCO3 VBG O2 Saturation VBG Base Excess Sodium Potassium Chloride Carbon Dioxide Anion Gap BUN Creatinine Est GFR ( Amer) Est GFR (Non-Af Amer) BUN/Creatinine Ratio Glucose Lactic Acid Calcium Phosphorus Magnesium Total Bilirubin Direct Bilirubin Indirect Bilirubin AST ALT Alkaline Phosphatase Ammonia Troponin I 48.20 H* Total Protein Albumin Globulin Albumin/Globulin Ratio Studies: CT brain: Evidence of diffuse cerebral edema, no change from prior EEG: Epileptiform activity noted ECHO: EF 40-45, hypokinesis of mid inferior, apical septal and apical inferior wall, RV global systolic function is mildly decreased Cardiac cath: RCA occlusion s/p stent placement Nutrition: Tube feeds to be started today since able to get off pressors Impression: 52 y o m smoker, ETOH abuse, drug screen positive for Cocaine, with recent ED visit for Rt wrist fracture, EMS called for unresponsiveneess, out of hosp V.fib /VT arrest, then asystoly and PEA, ROSC achieved prior to ED arrival, approx 40min down time, recurrent VT in ICU requiring multiple debrillations, pressors for cardiogenic shock, was taken to laboratory secretary, found to have 100% occlusion of RCA s/p stent placement, s/p IABP removed 12/23/17, titrated off pressors, dobutamine being titrated, titrated off Amio, Lidocaine, hypothermia protocol was initiated, rewarming started this am. 1. V fib/Vtach out of hospital Cardiac arrest 2. SC s/p cath and RCA stent 3. Cardiogenic shock, currently off pressors 4. Hypoxic resp failure s/p intubation and mechanical ventilation 5. Encephalopathy, concerning for hypoxemic encephalopathy 6. VF/VT required multiple defibrillation attempts, Amio, Lidocaine, no further episodes since revascularization 7. LAUREN, resolved 8. Shock liver 9. Metabolic acidosis sec to cardiogenic shock, resolved 10. Elevated troponins, trending down 11. Seizure activity sec to possible hypoxic encephalopathy Plan: 1. Neuro: Remains sedated on Propofol and Precedex, found to have epileptiform activity on EEG this am, started on Keppra. CT brain showed diffuse cerebral edema concerning for hypoxic encephalopathy. Will titrate off sedation as tolerated to be able to assess neuro status better. Neuro consult appreciated 2. Resp: Remains intubated for airway protection and hypoxic resp failure. Has cough reflex, required frequent suctioning last night. Vent settings reviewed, vent mechanics acceptable, FiO2 was titrated to 35%. ETT care, vent bundle ordered. CXR from this am was reviewed 3. CVS: IABP d/davon this am, off all pressors, titrating Dobuatamine down. Troponins trending down. Will need to start DOMINIK inh and beta marty for management of CAD once off Dobutamine . Will not need to trend troponins. Cardiology consult appreciated 4. GI: Will start trophic feeds this am and advance as tolerated. GI PPx. LFTs trending down. Will avoid hepato toxic agents 5. Renal: LAUREN on admission sec to cardiogenic shock, creatinine normal this am. UO was trending down this morning, ordered fluid bolus, will monitor closely for diuresis and ATN. No electrolyte abnormalities after potassium was repleted 6. Haem: Normocytic anemia, normal platelet counts, no leucocytosis. No need for transfusion 7. Endo: BS not elevated. 8. Musculoskeletal: Recent Rt wrist fracture. SCDs in place 9. Psycho/Social: Family updated at bedside, sisters and neice. IV access: Lt Femoral CVC and Lt radial art line required for vascular access and hemodynamic monitoring Nayak catheter required to prevent skin break down and to assess fluid status Critical Care Time: 45 min
[2017-12-23] MEDS: levETIRAcetam IV* 1,000 MG in NS 0.9% 100 ML* 100 ML IVPB SCH ×2 (12:41→23:50)
--- NOTE | 2017-12-23 13:02 | EEG ---
ELECTROENCEPHALOGRAPHY: DATE OF STUDY: 12/22/17 LOCATION: He is in the intensive care unit bed 1. CLINICAL PROBLEM: Cardiopulmonary arrest over 24 hours prior to this recording. The patient is intub ated and on propofol and Precedex, which was gradually decreased during the recording. REPORT: This 16-channel EEG is remarkable for background rhythms consisting of a burst suppression p attern. Rhythms are fairly symmetrical and synchronous. Most of the rhythms are in the theta and de lta range. Occasionally small spikes of sharp waves are noted without a following slow wave or phase reversals. As propofol is gradually decreased from 60 mcg to 20 mcg, there is a decrease in the sup pressed periods and an increase in the burst periods. Again, rhythms remain largely symmetrical. He ad movement is described at one point by the certified pest control technician. There are no epileptiform discharges. CLINICAL IMPRESSION: Abnormal EEG due to burst suppression pattern consistent with pharmacological-i nduced coma. There are no focal epileptiform discharges during this recording. [id number]/[facility] #: [id number]
[2017-12-23] MEDS: DOBUTamine 2000 MCG/ML IVPREMX 500 MG/250 ML BAG IV SCH (14:03)
--- NOTE | 2017-12-23 14:33 | CONS ---
CC: Dr. Torres* NEUROLOGY CONSULTATION: DATE OF CONSULT: 12/23/17 REFERRING PROVIDER: Dr. Byrd. LOCATION: He is inpatient in ICU bed 1. CHIEF COMPLAINT: Hypoxic ischemic encephalopathy. HISTORY OF PRESENT ILLNESS: Alexis Murphy is a 52-year-old man who was found down sometime around midday yesterday, ambulance was summoned. There were no bystander CPR and he was unresponsive and in ventricular fibrillation. He had prolonged resuscitation in the field and again required further resuscitation in the emergency department. Blood pressure and pulse were finally maintained and he was neurologically unresponsive. Initial brain CT was interpreted as showing diffuse loss of atkinson white differentiation concerning for diffuse anoxic injury. He required a pump, which was just taken off earlier today. He was maintained on propofol and Precedex. There was never any seizure activity reported. There is no known cardiac history, but there are no prior records in this facility. His sister says she believes he used to be on antihypertensive medication, but she is not sure if he was taking it. He just moved back into this area and she is not sure if he has a primary care physician or if he has had any check ups. Initial laboratory studies notable for arterial blood gas with a pH of 7.17, pCO2 of 41 after intubation, and pO2 of 455. Initial troponin was 0.05, but josette to over greater than 81 early in the morning hours. His toxicology screen was positive for cocaine. PAST MEDICAL HISTORY: Very little known. He may have hypertension. He is an ongoing smoker. He reported marijuana use when he came in and had a broken wrist last October. REVIEW OF SYSTEMS: Currently review of systems is otherwise only available from the hospital records. His sister has arrived and his brother arrived recently and so I will converse with them further after finishing this dictation. PHYSICAL EXAM: Most recent temperature by Nayak probe is 37.4, blood pressure is running about 140/70, heart rate is in the 70s and in sinus. He is on a ventilator with a respiratory rate of 18, oxygen saturation is 100% on supplemental oxygen. Neck appears supple. He has hammer toes and high arches suggestive for chronic peripheral neuropathy. Heart tones sound normal, but distant. I could not only get to his right carotid auscultated and I did not hear a bruit. Neurologically, pupils react weakly on the right from about 2.5 to 2 mm on the left, from about 2 to perhaps a fraction of contraction. Eyes are slightly divergent and there are no spontaneous eye movements. There is no eye movements to oculocephalic testing. There was no corneal reflexes or response to a nasal tickle. Limbs are flaccid. There is no movement to deep nail bed pressure in any of the limbs. He is areflexic. He does respond to gag with tracheal suctioning. EEG was applied and he had frequent epileptiform discharges, which appeared to be synchronous from both hemispheres. Subsequently, I ordered Keppra and his propofol was restarted and increased and that is when this most recent exam was done. Therefore, he was on about 60 mcg of propofol during the above described physical exam. DIAGNOSTIC STUDIES/LAB DATA: Additional laboratory data includes a second CT scan done today, which also reveals loss of atkinson white matter junctions. I reviewed both CT scan images and I agreed. He had a cardiac catheterization on 12/21/17, which revealed a right coronary artery occlusion, which was stented. He had an echocardiogram today interpreted as showing decreased wall motion of the mid inferior, apical septal, and apical inferior wall segments. Ejection fraction estimated at 40% to 50%. Further laboratory data notable for a CBC with a hemoglobin of 12.1, white blood cell count 8.1, platelets 121,000. Chemistries today are fairly unremarkable with normal electrolytes other than calcium 8.0 with an albumin of 3.0. Liver enzymes were 252 AST when he came in, rising to 683 on the 12/22/17 and down to 376 today. IMPRESSION AND PLAN: Hypoxic ischemic encephalopathy secondary to cardiac arrest. Currently, he is sedated and intubated and so, the exam is limited. However, he does have gag response and some pupillary responses, so he has brain stem activity. His EEG prior to initiating Keppra and propofol at higher doses showed frequent epileptiform discharges from both hemispheres. Prior to that as he was coming out of coma, his EEG from yesterday showed a burst suppression pattern. He is now on Keppra and we will increase the propofol as needed to get his EEG pattern back down into a more of a burst suppression mode. I have avoided phenytoin because of his cardiac disfunction. I may add valproic acid if his liver enzymes continue to drop. I will continue to follow along with the ICU team. [id number]/[facility] #: [id number] [facility]
[2017-12-23] MEDS: Atorvastatin* 80 MG TAB NG TUBE SCH (17:35)
[2017-12-24] MEDS: Dexmedetomidine* 400 MCG in NS 0.9% 100 ML* 96 ML IVPB SCH ×2 (01:05→11:57)
[2017-12-24] MEDS: Propofol* 100 ML IVPB SCH ×6 (02:08→17:51)
[2017-12-24] MEDS: Chlorhexidine MOUTHWASH 0.12%* 15 ML UDC TOPICAL SCH ×5 (03:46→20:58)
[2017-12-24 04:47] LABS: Hematocrit 32 % (42-52); Hemoglobin 11.4 g/dl (14.0-18.0); Mean Corpuscular HGB Conc 36 g/dl (31-36); Mean Corpuscular Hemoglobin 33 pg (27-31); Mean Corpuscular Volume 91 fL (80-94); Mean Platelet Volume 7.9 um3 (7.4-10.4); Platelet Count 109 10^3/ul (150-450); Red Cell Distribution Width 14 % (10.5-15); White Blood Count 8.2 10^3/ul (3.5-10.8)
[2017-12-24 04:55] LABS: INR 0.92 (0.77-1.02)
[2017-12-24 05:05] LABS: EGFR Non-African American 108.6 (>60)
[2017-12-24] MEDS: Heparin VIAL(*) 5000 UNITS/ML VIAL (FIVE THOUSAND) SUBCUT SCH ×2 (06:45→14:10)
[2017-12-24] MEDS ORDERED: Fosphenytoin(*) 1,500 MG in NS 0.9% 100 ML* 100 ML IVPB ONE (08:06)
[2017-12-24] MEDS ORDERED: NS 0.9% 50 ML* 50 ML ONE ×2 (08:29)
[2017-12-24] MEDS: Ticagrelor* 90 MG TAB PO SCH (08:58)
[2017-12-24] MEDS: Aspirin 81 mg CHEW TAB* 81 MG TAB.CHEW NG TUBE SCH (08:58)
[2017-12-24] MEDS: Folic Acid IV* 1 MG in NS 0.9% 50 ML* 50 ML IVPB SCH (08:58)
[2017-12-24] MEDS: Pantoprazole IV* 40 MG IV SCH (08:58)
[2017-12-24] MEDS: Thiamine IV* 100 MG in NS 0.9% 50 ML* 50 ML IV SCH (08:58)
--- NOTE | 2017-12-24 10:02 | EEG ---
PRISON VIDEO/EEG MONITORING - Monitoring Monitoring Start Date: 12/23/17 Current Monitoring Session: 12/23/17 at 11:58 to 12/24/17 at 07:41 EEG Clinical Indication: Alexis Murphy is a a 52year old male who came to the ED after being found down for, possibly, 45 min or more on 12/21/17. Pt is hypothermic to 36.6 c. He suffered a cardiac arrest and has brainstem reflexes but is unresponsive. A routine EEG raised concern for epileptiform abnormalities and this long-term monitoring was requested to evaluate for subclinical seizures. Introduction: INTRODUCTION: The EEG was monitored from 21 scalp electrodes. Nineteen electrodes consisted of the standard parasagittal, temporal and midline leads of the International 10 -20 system. In addition, special electrodes FT9 and FT10 were placed. EEG data were recorded on an [employer] system with simultaneous MPEG-4 digital video recording of patient behavior. EEG recording was in a monopolar montage with all electrodes referenced to FCz. Significant behavioral events were signaled by an event button, or putative electrical seizure events were detected by a computer program. All EEG data were reviewed in their entirety on a monitor with reconstruction of montages and adjustments of sensitivity and filtering. Simultaneous patient behavior was viewed on an adjacent monitor and correlated with the EEG. - Medications Active Medications: Acetaminophen (Tylenol Adult Liq*) 650 mg NG TUBE Q4H PRN PRN Reason: TEMPERATURE>36DEGREES CELSIUS Aspirin (Aspirin 81 Mg Chew Tab*) 81 mg NG TUBE DAILY KIERSTEN Last Admin: 12/24/17 08:58 Dose: 81 mg Atorvastatin Calcium (Lipitor*) 80 mg NG TUBE 1700 KIERSTEN Last Admin: 12/23/17 17:35 Dose: 80 mg Chlorhexidine Gluconate (Peridex Mouth Wash 0.12%*) 15 ml TOPICAL Q4H KIERSTEN Last Admin: 12/24/17 08:57 Dose: 15 ml Fentanyl Citrate (Fentanyl*) 50 mcg IV Q1H PRN PRN Reason: SHIVERING Last Admin: 12/23/17 01:24 Dose: 50 mcg Heparin Sodium (Porcine) (Heparin Flush Picc/Ml/Cvc(*)) 0 ml FLUSH 0600,1800 KIERSTEN; Protocol Last Admin: 12/24/17 06:44 Dose: 2 ml Heparin Sodium (Porcine) (Heparin Vial(*)) 5,000 units SUBCUT Q8HR KIERSTEN Last Admin: 12/24/17 06:45 Dose: 5,000 units Propofol (Diprivan*) 100 mls @ 9.12 mls/hr IVPB .(Initial Rate) KIERSTEN; Protocol Last Admin: 12/24/17 07:16 Dose: 27 mls/hr - Set at 60mcg/kg/min Dexmedetomidine HCl 400 mcg/ (Sodium Chloride) 100 mls @ 10.02 mls/hr IVPB .( Initial Rate) KIERSTEN; Protocol Last Admin: 12/24/17 01:05 Dose: 7.8 mls/hr -Set at 0.5 Dobutamine HCl/Dextrose (Dobutamine 2000 Mcg/Ml Ivpremx*) 500 mg in 250 mls @ 18.045 mls/hr IV PER RATE KIERSTEN; Protocol Last Admin: 12/23/17 14:03 Dose: 11.4 mls/hr Thiamine HCl 100 mg/ Sodium (Chloride) 51 mls @ 102 mls/hr IV DAILY KIERSTEN Last Admin: 12/24/17 08:58 Dose: 102 mls/hr Folic Acid 1 mg/ Sodium (Chloride) 50.2 mls @ 100.4 mls/hr IVPB DAILY KIERSTEN Last Admin: 12/24/17 08:58 Dose: 100.4 mls/hr Levetiracetam 1,000 mg/ Sodium (Chloride) 110 mls @ 440 mls/hr IVPB Q8HR [facility] Lorazepam (Ativan Inj*) 1 mg IV PUSH Q4H PRN PRN Reason: seizures Last Admin: 12/22/17 11:45 Dose: 2 mg Pantoprazole Sodium (Protonix Iv*) 40 mg IV DAILY KIERSTEN Last Admin: 12/24/17 08:58 Dose: 40 mg Ticagrelor (Brilinta*) 90 mg PO BID KIERSTEN Last Admin: 12/24/17 08:58 Dose: 90 mg - Description Background: The background lacked the organization expected of the typical waking or sleep background. At the beginning of the recording, propofol was at 20mcg/kg/min and the background consisted of a continuous pattern of diffuse mixed frequency slowing with prominent alpha activity punctuated by periodic sharp waves which were diffuse but had a predominance in the temporal regions and posterior regions. These occurred at 0.5 to 2 Hz. Propofol was increased to 60mcg/kg/min and the generalized period discharges (GPDs) became frontally predominant and occurred between 0.5 and 1 Hz. With this, the background developed a burst- suppression pattern with periods of suppression lasting from 1 to 9 seconds and bursts of activity lasting less than 1 second. The EEG retained reactivity as denoted by emergence of diffuse alpha activity and suppression of GPDs and emergence of muscle activity. This pattern was typically noted during routine care such as suctioning and other nursing care. As the patient was left undisturbed, after several minutes, the continuous alpha activity would become punctuated by return of the GPDs as previously described, then a more sedated, burst-suppression pattern would emerge. Ictal Activity: Beginning at 05:30 on 12/24, electrographic ictal patterns without clinical correlate were noted. The EEG changed suddenly with the emergence of spike and polyspike activity in the left frontal and temporal region, but also represented in the right frontal and temporal regions. Initially, this activity appeared in bursts of alpha/beta range frequency spike activity which lasted 1 to 2 seconds, while the activity in the right frontal and temporal regions was rhythmic but with a broader base and slower, in the theta range. This activity coalesced over time into a more continuous pattern, increased in amplitude and slowed in frequency on the left to 5 to 7 Hz rhythmic activity. The first pattern ended abruptly after 16 minutes and seemed to terminate when the nurse at the bedside adjusted the endotracheal tube. The second pattern began again 3 minutes later and the initial electrical activity was similar to that described above, but the termination was different. After about 25 minutes, the continuous rhythmic 5 to 7 Hz activity began to break up and was noted to occur in bursts of 2 to 3 seconds, interrupted by periods of diffuse, low amplitude alpha activity lasting about 1 second. Eventually, the periods of alpha activity became longer (2 to 3 seconds) and the bursts of rhythmic theta activity lasted 1 second or less before the pattern terminated after a total of 30 minutes. There was no external stimulation noted to correspond with the termination of this ictal activity. Twenty minutes later at 06:40, bursts of rhythmic, high amplitude 5 to 7 Hz activity lasting 0.5 to 2 seconds were again noted maximally in the left frontal and temporal regions, also reflected on the right, but this activity did not clearly evolve into an ictal pattern. This continued for 55 minutes until the patient's eyes were opened by a physician and the head was turned slightly and abruptly terminated. The background then became characteristic of his arousal pattern, as described above. - Impression Impression: This is an abnormal long-term monitoring session. Toward the end of the recording session, there were 2 to 3, prolonged electrographic seizures without clinical correlate arising primarily from the left frontal and temporal regions , but bifrontal in nature. Otherwise, the background is notable for a burst- suppression pattern with generalized periodic discharges, but the background retained reactivity. Overall, these findings are suggestive of a moderate to severe encephalopathy with intermittent, prolonged, electrographic seizures arising from the bifrontal regions, left greater than right.
--- NOTE | 2017-12-24 10:41 | CONS ---
NEUROLOGY FOLLOWUP: DATE OF FOLLOWUP: 12/24/17 LOCATION: He is an inpatient in ICU bed 1. QUANTITATIVE ANALYST DEVELOPER: Dr. Byrd. CHIEF COMPLAINT: Hypoxic ischemic encephalopathy. INTERVAL HISTORY: Since yesterday, Mr. Murphy had 1 episode at about 3:45 this morning, described by his nurse, Rita Mendoza, that he had "twitching in bilateral eyes and jaw lasting about 4 minutes." Reviewing his EEG, there was no electrographic seizure at that time, but there was a fairly prolonged electrographic seizure at about 5:15 to 5:30 this morning. It was more pronounced on the left hemisphere than the right, but there were epileptiform discharges in the right. It abruptly stopped. Since then, he has had some diffuse alpha activity with a frontal predominance suggesting of alpha coma. He has also had some suppressed areas with a brief burst of slow-voltage activity, which are not clearly epileptiform. He has been kept on 60 mcg/kg of propofol as well as 0.4 mcg of Precedex through the night. There were no other clinical events described. His blood pressures have been stable through the night. MEDICATIONS: Reviewed and he is on: 1. Aspirin 81 mg per NG q. day. 2. Lipitor 80 mg NG q. day. 3. Precedex and propofol as outlined above. 4. Dobutamine infusion. 5. Fentanyl 50 mcg IV q.1 hour p.r.n. shivering, which has not been needed since yesterday mirror silverer. 6. Heparin 5000 units subcutaneous q.8 hours. 7. Keppra 1000 mg IV q.12 hours. 8. Lorazepam 1 mg IV q.4 hours p.r.n. seizures, but none is received since 09/06. 9. Protonix 40 mg IV q. day. 10. Brilinta 90 mg p.o. b.i.d. with last dose this morning at about 9 a.m. PHYSICAL EXAMINATION: Temperature is running in the low 99s with the most recent one 99.1, blood pressure is running around 130/80, heart rate is in the 70s and 80s and appears to be in sinus with occasional PVCs. Respiratory rate is about 20, O2 saturations 98% on supplemental oxygen. Heart sounds to be in a regular rhythm. Neurological Exam: Eyes are slightly divergent. Pupils react very weakly from about 2-1/2 down to 2 mm. The right fundus is seen and the optic disks were sharp and I do not see any hemorrhages. I cannot get a good look at the left optic disk. There are no spontaneous eye movements. There are no corneal reflexes or response to nasal tickle. There are no spontaneous limb movements or facial movements. There is no facial grimace to supraorbital pressure or to nail bed pressure in all 4 extremities. There is no posturing with stimulation either with sternal rub or with deep nail bed pressure to all limbs. He is areflexic. Plantar responses are mute. LABORATORY DATA: From today notable for CBC with a white count of 8.2, hemoglobin stable at 11.4, platelet count down a little bit to 109,000. Chemistries today notable for normal electrolytes and glucose. Creatinine is stable. Liver enzymes are trending downward at 253 AST this morning and 105 ALT. Ammonia was borderline elevated yesterday at 56. Calcium is a little bit low this morning at 7.8 with an albumin of 2.7. IMPRESSION AND PLAN: Impression is that of hypoxic ischemic encephalopathy, probably with significant brain injury. He may be in alpha coma. He had an electrographic seizure early this morning. An official interpretation of his long- term monitoring is pending. I will increase his Keppra to 1000 mg every 8 hours. I have decided to load him with fosphenytoin 1500 mg. I was concerned about that yesterday in regards to potential effect upon his cardiac function, but I think at this point, he is showing very serious signs of significant hypoxic brain injury. I also note that fosphenytoin could affect his Brilinta metabolism and I will discuss that with Cardiology. There are no family members present this morning. I will discuss my impression with Dr. Byrd. I evaluated the patient several times over about 60 minutes of ICU time. [id number]/[facility] #: [id number] [facility]
[2017-12-24] MEDS: levETIRAcetam IV* 1,000 MG in NS 0.9% 100 ML* 100 ML IVPB SCH ×2 (14:46→21:52)
[2017-12-24] MEDS ORDERED: Clopidogrel TAB* 300 MG PO ONE (15:12)
--- NOTE | 2017-12-24 16:24 | PN ---
Date of Service: 12/24/17 - [facility] progress note Critical Care Services: Pt seen and examined at bedside multiple timesthrough out the day 24 hr events Titrated off all pressors Has been needing Dobutamine intermittently UO has been stable Seizure activity on EEG, Phenytoin added to Keppra and Propofol Vital Signs: Temp Pulse Resp BP SpO2 FiO2 98.8 F 75 19 102/65 97 25 12/24/17 16:00 12/24/17 16:00 12/24/17 12:00 12/24/17 16:00 12/24/17 16:00 12/24 12:00 Physical Exam: Gen: Pt is intubated, sedated HEENT:ETT in place, OGT+ Lungs: Good a/e b/l, no wheeze Cardiac: S1, S2+, tachycardic Abdomen: Obese , BS+ Extremities: No edema Neuro: Sedated, unable to assess neuro status Fluid Balance (Past 24 Hours): I= 804 O= 550 Net 254 Intake & Output 12/22/17 12/23/17 12/24/17 12/25/17 06:59 06:59 06:59 06:59 Intake Total 7812.2 2644.0 1631.5 804.5 Output Total 4270 3808 1700 550 Balance 3542.2 -1164.0 -68.5 254.5 Weight 176 lb 12.972 oz 195 lb 1.745 oz Intake: IV Fluids 3000 577 429.5 334 NS (0.9%) 3000 577 142.5 334 folic acid 287 IVPB 50 200 120 NS (0.9%) 50 120 folic acid 100 thiamine 100 Medicated IV 4762.2 1867.0 1052.0 350.5 CC - Amiodarone 517 259 50 CC - Dobutamine 261 265 166 40 CC - Epinephrine 2110 457 CC - Lidocaine 547 CC - Norepinephrine/ 290 Levophed CC - Phenylephrine/ 625.4 16.5 Neosynephrine CC - Propofol/Diprivan 327 460 644 240 CC - Vasopressin/ 84.8 11.5 Pitressin KCl 313 precedex 85 192.0 70.5 Oral 30 0 Tube Feeding Flush Amount 120 Output: NG Tube Drainage Amount 450 G Tube 650 Nayak 4270 2708 1700 550 Other: Date of Last Bowel 12/23/17 Movement # Bowel Movements 1 Estimated Stool Amount Medium Labs: Laboratory Results - last 24 hr 12/24/17 12/24/17 12/24/17 04:31 04:31 04:31 WBC 8.2 RBC 3.50 L Hgb 11.4 L Hct 32 L MCV 91 MCH 33 H MCHC 36 RDW 14 Plt Count 109 L MPV 7.9 INR (Anticoag Therapy) 0.92 Sodium 137 Potassium 3.8 Chloride 107 Carbon Dioxide 24 Anion Gap 6 BUN 11 Creatinine 0.76 Est GFR ( Amer) 131.4 Est GFR (Non-Af Amer) 108.6 BUN/Creatinine Ratio 14.5 Glucose 86 Calcium 7.8 L Total Bilirubin 0.50 Direct Bilirubin 0.10 Indirect Bilirubin 0.4 AST 253 H ALT 105 H Alkaline Phosphatase 53 Total Protein 4.9 L Albumin 2.7 L Globulin 2.2 Albumin/Globulin Ratio 1.2 Impression: 52 y o m smoker, ETOH abuse, drug screen positive for Cocaine, with recent ED visit for Rt wrist fracture, EMS called for unresponsiveneess, out of hosp V.fib /VT arrest, then asystoly and PEA, ROSC achieved prior to ED arrival, approx 40min down time, recurrent VT in ICU requiring multiple debrillations, pressors for cardiogenic shock, was taken to lab aide, found to have 100% occlusion of RCA s/p stent placement, s/p IABP removed 12/23/17, titrated off pressors, dobutamine being titrated, titrated off Amio, Lidocaine, hypothermia protocol was initiated, rewarmed 1. V fib/Vtach out of hospital Cardiac arrest, no further episodes of V fib 2. CO s/p cath and RCA stent 3. Cardiogenic shock, currently off pressors 4. Hypoxic resp failure s/p intubation and mechanical ventilation 5. Encephalopathy, concerning for hypoxemic encephalopathy 6. VF/VT required multiple defibrillation attempts, Amio, Lidocaine, no further episodes since revascularization 7. LAUREN, resolved 8. Shock liver 9. Metabolic acidosis sec to cardiogenic shock, resolved 10. Elevated troponins, trending down 11. Seizure activity sec to possible hypoxic encephalopathy Plan: 1. Neuro: Remains sedated on Propofol and Precedex, found to have epileptiform activity on EEG, started on Fosphenytoin, c/w Keppra. CT brain showed diffuse cerebral edema concerning for hypoxic encephalopathy. UNable to turn off sedation due to seizure activity. Neuro f/u noted 2. Resp: Remains intubated for airway protection and hypoxic resp failure. Has cough reflex, required frequent suctioning last night. Vent settings reviewed, vent mechanics acceptable, FiO2 was titrated to 35%. ETT care, vent bundle ordered. 3. CVS: IABP d/davon, off all pressors, titrating Dobuatamine down through out the day. Troponins trending down. To start DOMINIK inh and beta marty once off Dobutamine . Will not need to trend troponins. Cardiology f/u noted 4. GI: Will start trophic feeds and advance as tolerated. GI PPx. LFTs trending down. Will avoid hepato toxic agents 5. Renal: LAUREN on admission sec to cardiogenic shock, creatinine normal this am. 6. Haem: Normocytic anemia, normal platelet counts, no leucocytosis. No need for transfusion 7. Endo: BS not elevated. 8. Musculoskeletal: Recent Rt wrist fracture. SCDs in place 9. Psycho/Social: Family updated at bedside, sisters and neice. IV access: Lt Femoral CVC and Lt radial art line required for vascular access and hemodynamic monitoring Nayak catheter required to prevent skin break down and to assess fluid status Critical Care Time: 45 min
[2017-12-24] MEDS: Atorvastatin* 80 MG TAB NG TUBE SCH (17:21)
[2017-12-24] MEDS ORDERED: Clopidogrel TAB* 75 MG ONE (18:00)
--- NOTE | 2017-12-24 21:10 | CONS ---
NEUROLOGY FOLLOWUP NOTE: DATE OF FOLLOWUP: 12/24/17 SUPERINTENDENT SYSTEM OPERATION: Dr. Byrd. LOCATION: He is an inpatient in ICU, bed 1. CHIEF COMPLAINT: Hypoxic ischemic encephalopathy. INTERVAL HISTORY: I reevaluated Mr. Murphy this afternoon and we have the propofol turned off. It was turned off at about 10 before 3 and we resumed it a few minutes after 3. MEDICATIONS: Reviewed. He remains on: 1. Aspirin 81 mg NG tube daily. 2. Atorvastatin 80 mg NG tube daily. 3. Precedex. 4. Propofol initially at 60 mcg and turned off for further evaluation. 5. Fentanyl 50 mcg IV q.1 hour p.r.n. shivering with last dose at 1 in the morning on 12/23/17. 6. Heparin 5000 units subcutaneous q.8 hours. 7. Keppra 1000 mg IV q.8 hours. 8. Lorazepam 1 mg IV push q.4 hours p.r.n. seizures, the last dose 12/22/17 at 11:45 a.m. 9. Protonix 40 mg IV daily. 10. Propofol as noted above. 11. Brilinta 90 mg p.o. b.i.d. PHYSICAL EXAM: Serial exams were performed over approximately 10 to 12 minutes. Temperature was 97.9, blood pressure around 116/70, heart rate running between about 80 to 90 and appears to be in sinus. Oxygen saturation is 97% on supplemental oxygen. Initially, pupils were a bit small at about 3 mm and reacting to light to 2.5. After been on propofol, pupils dilated to closer to 5 mm and reactive to light to about 3 mm. Eye movements remained divergent without any spontaneous eye movements. Oculocephalic reflex testing did not produce any eye movements. He had no corneal reflexes initially, but after about 5 to 8 minutes of the propofol being off, he had bilateral corneal reflexes. He had no response to nasal tickle. He did develop symmetrical facial grimacing with supraorbital pressure bilaterally. There was no facial grimacing to lower extremity painful stimuli to the toes nor to painful stimuli in the upper extremities. Muscle tone remain flaccid in the 4 limbs. Deep pain in the nail beds to both upper extremities did not produce any movement or grimacing. Deep nail bed pressure to the toes produce ipsilateral triple flexion, which increased in amplitude the longer the propofol was off. DIAGNOSTIC STUDIES/LAB DATA: EEG background activity increased the longer the propofol was off. Areas of suppression in the burst suppression pattern decreased over time and there is more background rhythms. Occasionally some epileptiform sharp waves started to form in the right more than the left hemisphere. Propofol was then reinstituted at that point in time. IMPRESSION AND PLAN: Hypoxic ischemic encephalopathy, he may be having electrographic seizures during the night. Fosphenytoin has since been added and Keppra dose has been increased. I will write for Keppra and fosphenytoin levels in the morning. I will write for a noncontrasted head CT tomorrow to see if there is evidence of watershed infarcts. I spoke with Dr. Solano earlier about interaction between fosphenytoin and Brilinta. He had suggested switching Brilinta to Plavix. I will go ahead and make that switch at this point. I will be off service this evening and Dr. Arizmendi will be coming on for us and I will sign over Mr. Murphy's case to Dr. Arizmendi. [id number]/[facility] #: [id number] [facility] HOSPITALSamson
--- NOTE | 2017-12-24 21:44 | PN ---
Hospitalist Progress Note Date of Service: 12/24/17 Informed by nursing staff about decreasing platelets since admission. Chart reviewed and nearing 50% decrease since admission. Staff concerned of possible HIT. Will D/C SQ Heparin and initiate Fundaprinux. Heparin-platelet 4 Ab test sent/drawn.
[2017-12-25] MEDS: Chlorhexidine MOUTHWASH 0.12%* 15 ML UDC TOPICAL SCH ×7 (00:32→23:51)
[2017-12-25] MEDS: Propofol* 100 ML IVPB SCH ×8 (00:42→23:55)
[2017-12-25] MEDS: Dexmedetomidine* 400 MCG in NS 0.9% 100 ML* 96 ML IVPB SCH ×2 (00:44→14:24)
--- NOTE | 2017-12-25 03:07 | PN ---
Hospitalist Progress Note Date of Service: 12/25/17 Received another call from RN about bloody streaks in pt's FT. Will hold Fundaparinux previously ordered. Cancel labs ordered 3 hours from now as part of AM labs and instead will do them now.
[2017-12-25 04:09] LABS: ABS Basophils 0 10^3/ul (0-0.2); ABS Eosinophils 0.1 10^3/ul (0-0.6); ABS Lymphocytes 0.6 10^3/ul (1.0-4.8); ABS Monocytes 0.5 10^3/ul (0-0.8); ABS Neutrophils 7.8 10^3/ul (1.5-7.7); ABS Nucleated RBC 0 10^3/ul; Eosinophil % 0.8 % (0-6); Hematocrit 31 % (42-52); Hemoglobin 10.7 g/dl (14.0-18.0); Lymphocyte % 6.4 % (25-47); Mean Corpuscular HGB Conc 35 g/dl (31-36); Mean Corpuscular Hemoglobin 32 pg (27-31); Mean Corpuscular Volume 92 fL (80-94); Mean Platelet Volume 7.6 um3 (7.4-10.4); Nucleated Red Blood Cells % 0; Platelet Count 109 10^3/ul (150-450); Red Blood Count 3.36 10^6/ul (4.00-5.40); Red Cell Distribution Width 14 % (10.5-15)
[2017-12-25 04:16] LABS: INR 0.83 (0.77-1.02)
[2017-12-25 04:28] LABS: EGFR Non-African American 96.7 (>60)
[2017-12-25] MEDS ORDERED: Magnesium Sulfate 2 GM IV* 2 GM/50 ML BAG IVPB ONE (05:13)
[2017-12-25] MEDS: levETIRAcetam IV* 1,000 MG in NS 0.9% 100 ML* 100 ML IVPB SCH ×3 (05:50→21:36)
[2017-12-25] MEDS ORDERED: Magnesium Sulfate IV* 2 GM in NS 0.9% 100 ML* 100 ML IVPB ONE (06:00)
--- NOTE | 2017-12-25 07:51 | EEG ---
ELECTROENCEPHALOGRAPHY: DATE OF STUDY: 12/23/17. LOCATION: He is an inpatient, ICU bed 1. REFERRING PHYSICIAN: Dr. Grace CLINICAL HISTORY: Cardiopulmonary arrest with prolonged resuscitation. The patient is intubated in the intensive care unit. The patient is on propofol 60 mcg, Precedex. REPORT: This 16-channel EEG is remarkable for background rhythms. The onset of the tracing consisting of burst suppression pattern. There are generalized discharges periodically occasionally containing spike forms but usually consisting of delta and theta rhythms intermingled. There are variable intervals between the burst and suppressive patterns and again most of the recording shows them to be high hemispheric and synchronous. Occasionally bursts seem to be more predominantly from the left and less of in the right hemisphere. There are no clinical accompaniments described. CLINICAL IMPRESSION: Abnormal EEG due to the generalized burst suppression pattern with some epileptiform features but no clinical events and no clear ictal discharges. This tracing was compatible with diffuse cerebral dysfunction and probable anesthetic-induced coma. [id number]/[facility] #: [id number] MTDD
--- NOTE | 2017-12-25 08:28 | PN ---
Date of Service: 12/25/17 - [facility] progress note Critical Care Services: Pt seen and examined at bedside this am. Overnight events noted 24 hr events Pt was started on tube feeds last night, was noted to have bloody fluid when residuals were checked Platelets have been slowly trending down, likey dilutional, HIT possibility, heparin was held and Fondaparinox ordered and HIT antibodies sent Having bile draining from OGT this am, feeds restarted CBC was checked, H&H and platelets stable On Propofol for sedation, no other spikes noted on EEG Has been off and on with Dobutamine Continuous EEG monitoring on UO @ 35cc/hr Vital Signs: Temp Pulse Resp BP SpO2 FiO2 98.1 F 85 16 142/87 96 25 12/25/17 08:00 12/25/17 08:00 12/25/17 06:00 12/25/17 08:00 12/25/17 08:00 12/25 04:00 Physical Exam: Gen: Pt in NAD, sedated HEENT:ETT+, OGT+, pupils small Lungs: Clear to auscultation, decreased at bases Cardiac: S1, S2+, regular Abdomen: Soft, BS+ Extremities: No edema Neuro:Sedated, will hold sedation this am ot assess neuro status IV access: Lt Femoral CVC and Lt radial art line required for vascular access and hemodynamic monitoring Nayak catheter required to prevent skin break down and to assess fluid status Fluid Balance (Past 24 Hours): I= 1938 O= 1291 Net 647 Intake & Output 12/23/17 12/24/17 12/25/17 12/26/17 06:59 06:59 06:59 06:59 Intake Total 2644.0 1631.5 1938.9 Output Total 3808 1700 1291 Balance -1164.0 -68.5 647.9 Weight 195 lb 1.745 oz 200 lb 6.403 oz Intake: IV Fluids 577 429.5 477.2 NS (0.9%) 577 142.5 477.2 folic acid 287 IVPB 200 120 350 NS (0.9%) 120 350 folic acid 100 thiamine 100 Medicated IV 1867.0 1052.0 924.7 CC - Amiodarone 259 50 CC - Dobutamine 265 166 92 CC - Epinephrine 457 CC - Phenylephrine/ 16.5 Neosynephrine CC - Propofol/Diprivan 460 644 643 CC - Vasopressin/ 11.5 Pitressin KCl 313 precedex 85 192.0 189.7 Oral 30 0 Tube Feeding 67 Tube Feeding Flush Amount 120 Output: NG Tube Drainage Amount 450 G Tube 650 Urine 40 Nayak 2708 1700 1251 Other: Date of Last Bowel 12/23/17 Movement # Bowel Movements 1 Estimated Stool Amount Medium Labs: Laboratory Results - last 24 hr 12/25/17 12/25/17 12/25/17 03:55 03:55 03:55 WBC 9.0 RBC 3.36 L Hgb 10.7 L Hct 31 L MCV 92 MCH 32 H MCHC 35 RDW 14 Plt Count 109 L MPV 7.6 Neut % (Auto) 86.5 H Lymph % (Auto) 6.4 L Parker % (Auto) 5.9 Eos % (Auto) 0.8 Baso % (Auto) 0.4 Absolute Neuts (auto) 7.8 H Absolute Lymphs (auto) 0.6 L Absolute Monos (auto) 0.5 Absolute Eos (auto) 0.1 Absolute Basos (auto) 0 Absolute Nucleated RBC 0 Nucleated RBC % 0 INR (Anticoag Therapy) 0.83 APTT 29.6 Sodium 138 Potassium 3.5 Chloride 105 Carbon Dioxide 23 Anion Gap 10 BUN 15 Creatinine 0.84 Est GFR ( Amer) 117.0 Est GFR (Non-Af Amer) 96.7 BUN/Creatinine Ratio 17.9 Glucose 113 H Calcium 7.8 L Magnesium 1.6 L Total Bilirubin 0.40 AST 174 H ALT 84 H Alkaline Phosphatase 47 Total Protein 5.1 L Albumin 2.6 L Globulin 2.5 Albumin/Globulin Ratio 1.0 Nutrition: Tube feeds restarted this am Impression: 52 y o m smoker, ETOH abuse, drug screen positive for Cocaine, with recent ED visit for Rt wrist fracture, EMS called for unresponsiveneess, out of hosp V.fib /VT arrest, then asystoly and PEA, ROSC achieved prior to ED arrival, approx 40min down time, recurrent VT in ICU requiring multiple debrillations, pressors for cardiogenic shock, was taken to [employer], found to have 100% occlusion of RCA s/p stent placement, s/p IABP removed 12/23/17, titrated off pressors, dobutamine being titrated, titrated off Amio, Lidocaine, hypothermia protocol was initiated, rewarmed 1. V fib/Vtach out of hospital Cardiac arrest, back in sinus 2. OR s/p cath and RCA stent 3. Cardiogenic shock, currently off pressors 4. Hypoxic resp failure s/p intubation and mechanical ventilation 5. Hypoxemic encephalopathy 6. Seizure activity sec to possible hypoxic encephalopathy 7. Anemia 8. Thrombocytopenia, dilutional vs HIT Plan: 1. Neuro: Remains sedated on Propofol and Precedex, On Fosphenytoin, Keppra. No obvious epileptiform spikes this am. CT brain showed diffuse cerebral edema concerning for hypoxic encephalopathy. Unable to turn off sedation due to seizure activity. Neuro f/u noted 2. Resp: Remains intubated for airway protection and hypoxic resp failure. Has good cough reflex. Vent settings reviewed, vent mechanics acceptable. ETT care, vent bundle ordered. Not ready for SBT 3. CVS: IABP d/davon, off all pressors. Troponins trending down. Titrate DOMINIK inh and beta marty as tolerated. Cardiology. On Arixtra and Plavix 4. GI: C/w tube feeds and advance as tolerated. Had blood drained from OGT yesterday, cleared this am. GI PPx. LFTs trending down. Will avoid hepato toxic agents 5. Renal: LAUREN on admission sec to cardiogenic shock, resolved, urine out put is good. 6. Haem: Normocytic anemia, platelet counts slowly trending down, plavix dose was decreased given bloody GI secretions, Arixtra was restarted this am, no leucocytosis. No need for transfusion 7. Endo: BS not elevated. 8. Musculoskeletal: Recent Rt wrist fracture, in splint. SCDs in place 9. Psycho/Social: Family updated at bedside Critical Care Time: 40 min
[2017-12-25] MEDS ORDERED: Fondaparinux* 2.5 MG/0.5 ML SYRINGE SUBCUT SCH (09:00)
[2017-12-25] MEDS ORDERED: Clopidogrel TAB* 75 MG SCH (09:00)
[2017-12-25] MEDS: Pantoprazole IV* 40 MG IV SCH (09:04)
[2017-12-25] MEDS: Aspirin 81 mg CHEW TAB* 81 MG TAB.CHEW NG TUBE SCH (09:04)
[2017-12-25] MEDS: Thiamine IV* 100 MG in NS 0.9% 50 ML* 50 ML IV SCH (09:05)
[2017-12-25] MEDS: Folic Acid IV* 1 MG in NS 0.9% 50 ML* 50 ML IVPB SCH (09:05)
[2017-12-25] MEDS: Fondaparinux* 2.5 MG/0.5 ML SYRINGE SUBCUT SCH (09:08)
--- NOTE | 2017-12-25 09:18 | EEG ---
CARE HOME VIDEO/EEG MONITORING - Monitoring Monitoring Start Date: 12/23/17 Current Monitoring Session: 12/24/17 at 07:42 to 12/25/17 at 07:43 EEG Clinical Indication: Alexis Murphy is a a 52year old male who came to the ED after being found down for, possibly, 45 min or more on 12/21/17. Pt is hypothermic to 36.6 c. He suffered a cardiac arrest and has brainstem reflexes but is unresponsive. A routine EEG raised concern for epileptiform abnormalities and this long-term monitoring was requested to evaluate for subclinical seizures. Introduction: INTRODUCTION: The EEG was monitored from 21 scalp electrodes. Nineteen electrodes consisted of the standard parasagittal, temporal and midline leads of the International 10 -20 system. In addition, special electrodes T1 and T2 were placed. EEG data were recorded on an [employer] system with simultaneous MPEG-4 digital video recording of patient behavior. EEG recording was in a monopolar montage with all electrodes referenced to FCz. Significant behavioral events were signaled by an event button, or putative electrical seizure events were detected by a computer program. All EEG data were reviewed in their entirety on a monitor with reconstruction of montages and adjustments of sensitivity and filtering. Simultaneous patient behavior was viewed on an adjacent monitor and correlated with the EEG. - Medications Active Medications: Acetaminophen (Tylenol Adult Liq*) 650 mg NG TUBE Q4H PRN PRN Reason: TEMPERATURE>36DEGREES CELSIUS Aspirin (Aspirin 81 Mg Chew Tab*) 81 mg NG TUBE DAILY [facility] Last Admin: 12/25/17 09:04 Dose: 81 mg Atorvastatin Calcium (Lipitor*) 80 mg NG TUBE 1700 [facility] Last Admin: 12/24/17 17:21 Dose: 80 mg Chlorhexidine Gluconate (Peridex Mouth Wash 0.12%*) 15 ml TOPICAL Q4H [facility] Last Admin: 12/25/17 09:04 Dose: 15 ml Fentanyl Citrate (Fentanyl*) 50 mcg IV Q1H PRN PRN Reason: SHIVERING Last Admin: 12/23/17 01:24 Dose: 50 mcg Fondaparinux (Arixtra*) 2.5 mg SUBCUT DAILY [facility] Last Admin: 12/25/17 09:08 Dose: 2.5 mg Propofol (Diprivan*) 100 mls @ 9.12 mls/hr IVPB .(Initial Rate) [facility]; Protocol Last Admin: 12/25/17 07:08 Dose: 27 mls/hr Dexmedetomidine HCl 400 mcg/ (Sodium Chloride) 100 mls @ 10.02 mls/hr IVPB .( Initial Rate) [facility]; Protocol Last Admin: 12/25/17 00:44 Dose: 7.8 mls/hr Dobutamine HCl/Dextrose (Dobutamine 2000 Mcg/Ml Ivpremx*) 500 mg in 250 mls @ 18.045 mls/hr IV PER RATE [facility]; Protocol Last Admin: 12/23/17 14:03 Dose: 11.4 mls/hr Thiamine HCl 100 mg/ Sodium (Chloride) 51 mls @ 102 mls/hr IV DAILY [facility] Last Admin: 12/25/17 09:05 Dose: 102 mls/hr Folic Acid 1 mg/ Sodium (Chloride) 50.2 mls @ 100.4 mls/hr IVPB DAILY [facility] Last Admin: 12/25/17 09:05 Dose: 100.4 mls/hr Levetiracetam 1,000 mg/ Sodium (Chloride) 110 mls @ 440 mls/hr IVPB Q8HR [facility] Last Admin: 12/25/17 05:50 Dose: 440 mls/hr Lorazepam (Ativan Inj*) 1 mg IV PUSH Q4H PRN PRN Reason: seizures Last Admin: 12/22/17 11:45 Dose: 2 mg Pantoprazole Sodium (Protonix Iv*) 40 mg IV DAILY [facility] Last Admin: 12/25/17 09:04 Dose: 40 mg - Description Background: The background lacked the organization expected of the typical waking or sleep background. At the beginning of the recording, the background consisted of a a burst-suppression pattern with periods of suppression lasting from 1 to 9 seconds and bursts of activity lasting less than 1 second. Bursts of activity consisted of generalized period discharges (GPDs) with frontal predominance and occurred between 0.5 and 1 Hz. The EEG retained reactivity as denoted by emergence of diffuse alpha activity and suppression of GPDs and emergence of muscle activity. This pattern was typically noted during routine care such as suctioning and other nursing care. As the patient was left undisturbed, after several minutes, the continuous alpha activity would become punctuated by return of the GPDs as previously described, then a more sedated, burst-suppression pattern would emerge. Around 14:00, the EEG background was less suppressed, consisting of a burst- suppression pattern with GPDs at 1 Hz and periods of diffuse alpha/theta activity lasting 1 to 2 seconds. There were frequent arousals during this time. During this time, a propofol holiday was given, and when the infusion was restarted, the background returned to that described above. Intericatal Epileptiform Activity: When the EEG was less suppressed around 14:00, there was the emergence of spike and slow wave discharges in the right frontal region, maximal at F8 with a field to T4 and T2. Ictal Activity: None - Impression Impression: This is an abnormal long-term monitoring session. The background is characterized by a burst-suppression pattern with GPDs noted during bursts of activity. When sedation was held, epileptiform discharges were seen more focally in the right frontal region. The EEG retained reactivity, however. These findings are suggestive of a moderate to severe encephalopathy with increased epileptic potential in the right frontal region. There were no seizures during this recording.
--- NOTE | 2017-12-25 12:48 | RAD ---
HISTORY: coma COMPARISONS: December 23, 2017 TECHNIQUE: Multiple contiguous axial CT scans were obtained of the head without intravenous contrast. FINDINGS: HEMORRHAGE/INFARCT: There is no hemorrhage or acute infarct. MASSES/SHIFT: There is no mass or shift. EXTRA-AXIAL SPACES: There are no extra-axial fluid collections. SULCI AND VENTRICLES: There is mild sulcal effacement, progressed from the previous examination. CEREBRUM: There is diffuse loss of atkinson-white differentiation. BRAINSTEM: There are no focal parenchymal abnormalities. CEREBELLUM: There are no focal parenchymal abnormalities. VESSELS: There are-fluid levels within the sphenoid and maxillary sinuses and ethmoid air cells. PARANASAL SINUSES: The paranasal sinuses are clear. ORBITS: The orbits are unremarkable. BONES AND SOFT TISSUE: No bone or soft tissue abnormalities are noted. OTHER: None IMPRESSION: THERE IS DIFFUSE LOSS OF ATKINSON-WHITE DIFFERENTIATION CONSISTENT WITH DIFFUSE ANOXIC INJURY. THERE HAS BEEN DEVELOPMENT OF MILD SULCAL EFFACEMENT SUGGESTIVE OF DEVELOPING CEREBRAL EDEMA.
[2017-12-25] MEDS: Clopidogrel TAB* 75 MG PO SCH (13:17)
--- NOTE | 2017-12-25 16:38 | PN ---
Progress Note - Progress Note Date of Service: 12/25/17 SOAP: Neurology follow up note Date of service: 12/25/17 Subjective: Patient was seen and examined around 9:30 this am. No acute events overnight. He remained on sedation (propofol). VEEG recording continued. Objective: Vital Signs Temp Pulse Resp BP Pulse Ox 98.6 F 103 23 143/86 96 12/25/17 11:00 12/25/17 12:59 12/25/17 12:59 12/25/17 11:00 12/25/17 12:59 Current Medications Acetaminophen (Tylenol Adult Liq*) 650 mg NG TUBE Q4H PRN PRN Reason: TEMPERATURE>36DEGREES CELSIUS Aspirin (Aspirin 81 Mg Chew Tab*) 81 mg NG TUBE DAILY [facility] Last Admin: 12/25/17 09:04 Dose: 81 mg Atorvastatin Calcium (Lipitor*) 80 mg NG TUBE 1700 [facility] Last Admin: 12/24/17 17:21 Dose: 80 mg Chlorhexidine Gluconate (Peridex Mouth Wash 0.12%*) 15 ml TOPICAL Q4H [facility] Last Admin: 12/25/17 13:17 Dose: 15 ml Clopidogrel Bisulfate (Plavix Tab*) 75 mg PO DAILY [facility] Last Admin: 12/25/17 13:17 Dose: 75 mg Fentanyl Citrate (Fentanyl*) 50 mcg IV Q1H PRN PRN Reason: SHIVERING Last Admin: 12/23/17 01:24 Dose: 50 mcg Fondaparinux (Arixtra*) 2.5 mg SUBCUT DAILY [facility] Last Admin: 12/25/17 09:08 Dose: 2.5 mg Propofol (Diprivan*) 100 mls @ 9.12 mls/hr IVPB .(Initial Rate) [facility]; Protocol Last Admin: 12/25/17 14:23 Dose: 22.5 mls/hr Dobutamine HCl/Dextrose (Dobutamine 2000 Mcg/Ml Ivpremx*) 500 mg in 250 mls @ 18.045 mls/hr IV PER RATE [facility]; Protocol Last Admin: 12/23/17 14:03 Dose: 11.4 mls/hr Thiamine HCl 100 mg/ Sodium (Chloride) 51 mls @ 102 mls/hr IV DAILY [facility] Last Admin: 12/25/17 09:05 Dose: 102 mls/hr Folic Acid 1 mg/ Sodium (Chloride) 50.2 mls @ 100.4 mls/hr IVPB DAILY [facility] Last Admin: 12/25/17 09:05 Dose: 100.4 mls/hr Levetiracetam 1,000 mg/ Sodium (Chloride) 110 mls @ 440 mls/hr IVPB Q8HR [facility] Last Admin: 12/25/17 14:24 Dose: 440 mls/hr Dexmedetomidine HCl 400 mcg/ (Sodium Chloride) 100 mls @ 10.02 mls/hr IVPB Q12H [facility]; Protocol Last Admin: 12/25/17 14:24 Dose: 10.02 mls/hr Lorazepam (Ativan Inj*) 1 mg IV PUSH Q4H PRN PRN Reason: seizures Last Admin: 12/22/17 11:45 Dose: 2 mg Pantoprazole Sodium (Protonix Iv*) 40 mg IV DAILY [facility] Last Admin: 12/25/17 09:04 Dose: 40 mg Laboratory Last Values WBC 9.0 10^3/ul (3.5-10.8) 12/25/17 03:55 RBC 3.36 10^6/ul (4.00-5.40) L 12/25/17 03:55 Hgb 10.7 g/dl (14.0-18.0) L 12/25/17 03:55 Hct 31 % (42-52) L 12/25/17 03:55 MCV 92 fL (80-94) 12/25/17 03:55 MCH 32 pg (27-31) H 12/25/17 03:55 MCHC 35 g/dl (31-36) 12/25/17 03:55 RDW 14 % (10.5-15) 12/25/17 03:55 Plt Count 109 10^3/ul (150-450) L 12/25/17 03:55 MPV 7.6 um3 (7.4-10.4) 12/25/17 03:55 Neut % (Auto) 86.5 % (38-83) H 12/25/17 03:55 Lymph % (Auto) 6.4 % (25-47) L 12/25/17 03:55 [place] % (Auto) 5.9 % (0-7) 12/25/17 03:55 Eos % (Auto) 0.8 % (0-6) 12/25/17 03:55 Baso % (Auto) 0.4 % (0-2) 12/25/17 03:55 Absolute Neuts (auto) 7.8 10^3/ul (1.5-7.7) H 12/25/17 03:55 Absolute Lymphs (auto) 0.6 10^3/ul (1.0-4.8) L 12/25/17 03:55 Absolute Monos (auto) 0.5 10^3/ul (0-0.8) 12/25/17 03:55 Absolute Eos (auto) 0.1 10^3/ul (0-0.6) 12/25/17 03:55 Absolute Basos (auto) 0 10^3/ul (0-0.2) 12/25/17 03:55 Absolute Nucleated RBC 0 10^3/ul 12/25/17 03:55 Nucleated RBC % 0 12/25/17 03:55 INR (Anticoag Therapy) 0.83 (0.77-1.02) 12/25/17 03:55 APTT 29.6 seconds (26.0-36.3) 12/25/17 03:55 POC Activ Clotting Time 217 seconds 12/21/17 20:56 Patient Temperature 35.2c 12/22/17 06:40 ABG pH 7.30 (7.35-7.45) L 12/22/17 06:40 ABG pH (Temp Correct) Not Reportable 12/22/17 06:40 ABG pCO2 30 mmHg (35-45) L 12/22/17 06:40 ABG pCO2 (Temp Corrct Not Reportable 12/22/17 06:40 ABG pO2 158 mmHg (80-100) H 12/22/17 06:40 ABG pO2 (Temp Correct Not Reportable 12/22/17 06:40 ABG HCO3 16.9 mmol/L (19-31) L 12/22/17 06:40 ABG O2 Saturation 98.7 % (95-98) H 12/22/17 06:40 ABG Base Excess -10.3 (-2.0-2.0) L 12/22/17 06:40 VBG pH 7.39 (7.33-7.43) 12/23/17 12:30 VBG pCO2 40 mmHg (41-51) L 12/23/17 12:30 VBG pO2 45 mmHg (35-45) 12/23/17 12:30 VBG HCO3 24.1 mmol/L (24-28) 12/23/17 12:30 VBG O2 Saturation 85.2 % (70-80) H 12/23/17 12:30 VBG Base Excess -0.7 (0-4) L 12/23/17 12:30 Respiration Rate 13 12/22/17 06:40 O2 Delivery Device ventilator 12/21/17 13:05 Ventilator Type 500 12/22/17 06:40 Vent Mode Apv/cmv 12/22/17 06:40 FiO2 50 12/22/17 06:40 Inspiratory Time Not Reportable 12/22/17 06:40 PEEP 5 12/22/17 06:40 Pressure Support Not Reportable 12/22/17 06:40 Pressure Control Not Reportable 12/22/17 06:40 EPAP Not Reportable 12/22/17 06:40 IPAP Not Reportable 12/22/17 06:40 BiPAP Not Reportable 12/22/17 06:40 Sodium 138 mmol/L (135-145) 12/25/17 03:55 Potassium 3.5 mmol/L (3.5-5.0) 12/25/17 03:55 Chloride 105 mmol/L (101-111) 12/25/17 03:55 Carbon Dioxide 23 mmol/L (22-32) 12/25/17 03:55 Anion Gap 10 mmol/L (2-11) 12/25/17 03:55 BUN 15 mg/dL (6-24) 12/25/17 03:55 Creatinine 0.84 mg/dL (0.67-1.17) 12/25/17 03:55 Est GFR ( Amer) 117.0 (>60) 12/25/17 03:55 Est GFR (Non-Af Amer) 96.7 (>60) 12/25/17 03:55 BUN/Creatinine Ratio 17.9 (8-20) 12/25/17 03:55 Glucose 113 mg/dL (70-100) H 12/25/17 03:55 Hemoglobin A1c 5.4 % (4.0-5.6) 12/22/17 00:20 Lactic Acid 1.1 mmol/L (0.5-2.0) 12/22/17 18:15 Calcium 7.8 mg/dL (8.6-10.3) L 12/25/17 03:55 Phosphorus 2.8 mg/dL (2.5-5.0) 12/22/17 09:15 Magnesium 1.6 mg/dL (1.9-2.7) L 12/25/17 03:55 Total Bilirubin 0.40 mg/dL (0.2-1.0) 12/25/17 03:55 Direct Bilirubin 0.10 mg/dL (0.03-0.18) 12/24/17 04:31 Indirect Bilirubin 0.4 mg/dL (0.3-1.0) 12/24/17 04:31 AST 174 U/L (13-39) H 12/25/17 03:55 ALT 84 U/L (7-52) H 12/25/17 03:55 Alkaline Phosphatase 47 U/L (34-104) 12/25/17 03:55 Ammonia 56 mcmol/L (16-53) H 12/23/17 05:30 Total Creatine Kinase 25169 U/L (10-223) H 12/22/17 09:15 CK-MB (CK-2) 431.0 ng/mL (0.6-6.3) H 12/22/17 09:15 Troponin I 48.20 ng/mL (<0.04) H* 12/23/17 10:50 B-Natriuretic Peptide 88 pg/mL (-100) 12/21/17 13:05 Total Protein 5.1 g/dL (6.4-8.9) L 12/25/17 03:55 Albumin 2.6 g/dL (3.2-5.2) L 12/25/17 03:55 Globulin 2.5 g/dL (2-4) 12/25/17 03:55 Albumin/Globulin Ratio 1.0 (1-3) 12/25/17 03:55 Triglycerides 153 mg/dL 12/21/17 13:05 Cholesterol 157 mg/dL 12/21/17 13:05 LDL Cholesterol 78 mg/dL 12/21/17 13:05 HDL Cholesterol 48.8 mg/dL 12/21/17 13:05 TSH 1.83 mcIU/mL (0.34-5.60) 12/22/17 00:20 Cortisol 45.21 mcg/dL 12/22/17 00:20 Urine Color Yellow 12/21/17 23:00 Urine Appearance Clear 12/21/17 23:00 Urine pH 5.0 (5-9) 12/21/17 23:00 Ur Specific [place] 1.012 (1.010-1.030) 12/21/17 23:00 Urine Protein Negative (Negative) 12/21/17 23:00 Urine Ketones Negative (Negative) 12/21/17 23:00 Urine Blood 3+ (Negative) A 12/21/17 23:00 Urine Nitrate Negative (Negative) 12/21/17 23:00 Urine Bilirubin Negative (Negative) 12/21/17 23:00 Urine Urobilinogen Negative (Negative) 12/21/17 23:00 Ur Leukocyte Esterase Negative (Negative) 12/21/17 23:00 Urine WBC (Auto) Trace(0-5/hpf) (Absent) 12/21/17 23:00 Urine RBC (Auto) Trace(0-2/hpf) (Absent) 12/21/17 23:00 Urine Bacteria Absent (Absent) 12/21/17 23:00 Urine Glucose 3+(>=500 mg/dl) (Negative) A 12/21/17 23:00 Urine Opiates Screen None detected (None Detect) 12/21/17 16:10 Ur Barbiturates Screen None detected (None Detect) 12/21/17 16:10 Phenytoin 11.2 mcg/mL (10-20) 12/25/17 08:55 Ur Phencyclidine Scrn None detected (None Detect) 12/21/17 16:10 Ur Amphetamines Screen None detected (None Detect) 12/21/17 16:10 U Benzodiazepines Scrn None detected (None Detect) 12/21/17 16:10 Urine Cocaine Screen Presumptive positive (None Detect) A 12/21/17 16:10 U Cannabinoids Screen None detected (None Detect) 12/21/17 16:10 Blood Type A Negative 12/21/17 13:05 Antibody Screen Negative 12/21/17 13:05 PHYSICAL EXAM: After being off propofol for more than 15 minutes, the patient had coughing and grimacing to noxious stimulus. Spontaneously, he was also having coughing and yawning. Pupils 3-4 mm, symmetric and reactive to light. Intact bilateral corneal reflexes. With noxious stimulus to the extremities small withdrawal movements observed. EEG report: The background lacked the organization expected of the typical waking or sleep background. At the beginning of the recording, propofol was at 20mcg/kg/min and the background consisted of a continuous pattern of diffuse mixed frequency slowing with prominent alpha activity punctuated by periodic sharp waves which were diffuse but had a predominance in the temporal regions and posterior regions. These occurred at 0.5 to 2 Hz. Propofol was increased to 60mcg/kg/min and the generalized period discharges (GPDs) became frontally predominant and occurred between 0.5 and 1 Hz. With this, the background developed a burst- suppression pattern with periods of suppression lasting from 1 to 9 seconds and bursts of activity lasting less than 1 second. The EEG retained reactivity as denoted by emergence of diffuse alpha activity and suppression of GPDs and emergence of muscle activity. This pattern was typically noted during routine care such as suctioning and other nursing care. As the patient was left undisturbed, after several minutes, the continuous alpha activity would become punctuated by return of the GPDs as previously described, then a more sedated, burst-suppression pattern would emerge. ARound 14:00, the EEG background was less suppressed, consisting of a burst- suppression pattern with GPDs at 1 Hz and periods of diffuse alpha/theta activity lasting 1 to 2 seconds. There were frequent arousals during this time. Intericatal Epileptiform Activity: When the EEG was less suppressed around 14:00, there was the emergence of spike and slow wave discharges in the right frontal region, maximal at F8 with a field to T4 and T2. Ictal Activity: None CT head IMPRESSION: THERE IS DIFFUSE LOSS OF BLUM-WHITE DIFFERENTIATION CONSISTENT WITH DIFFUSE ANOXIC INJURY. THERE HAS BEEN DEVELOPMENT OF MILD SULCAL EFFACEMENT SUGGESTIVE OF DEVELOPING CEREBRAL EDEMA. Assessment and Plan: 52-year-old male with history of hypoxic brain injury. The patient's seizures are under better control now. Level of serum phenytoin is 11.2. Continue current dose and continue the current dose of levetiracetam. The patient has some improvement in his neurological exam, but considering his repeat CT findings his prognosis for meaningful neurological recovery is guarded. Plan for titrating down the propofol. Will continue the Video-EEG monitoring until tomorrow to ensure the seizures remain under good control. Will continue to follow.
[2017-12-25] MEDS: Atorvastatin* 80 MG TAB NG TUBE SCH (17:55)
[2017-12-26] MEDS: Dexmedetomidine* 400 MCG in NS 0.9% 100 ML* 96 ML IVPB SCH ×3 (01:43→23:36)
[2017-12-26] MEDS: Chlorhexidine MOUTHWASH 0.12%* 15 ML UDC TOPICAL SCH ×2 (03:49→09:15)
[2017-12-26] MEDS: Propofol* 100 ML IVPB SCH ×2 (05:58→11:20)
[2017-12-26] MEDS: levETIRAcetam IV* 1,000 MG in NS 0.9% 100 ML* 100 ML IVPB SCH ×2 (06:16→13:57)
--- NOTE | 2017-12-26 08:08 | PN ---
Date of Service: 12/26/17 Critical Care Services: Overnight no issues. Repeat CT head showing diffuse anoxic injury and cerebral edema Vital Signs: Temp Pulse Resp BP SpO2 FiO2 100.1 F 92 26 144/83 96 35 12/26/17 04:00 12/26/17 07:00 12/26/17 07:00 12/26/17 07:00 12/26/17 07:00 12/26 04:00 Physical Exam: Gen: intubated and sedated HEENT: ncat, +ett Lungs: cta, no wrr Cardiac: s1/s2, no murmur Abdomen: soft nt, nd Extremities: no edema Neuro: sedated, unresponsive, perrl Fluid Balance (Past 24 Hours): I= O= Net Intake & Output 12/24/17 12/25/17 12/26/17 12/27/17 06:59 06:59 06:59 06:59 Intake Total 1631.5 1938.9 1729.1 0 Output Total 1700 1291 905 Balance -68.5 647.9 824.1 0 Weight 90.9 kg 87.1 kg Intake: IV Fluids 429.5 477.2 565 NS (0.9%) 142.5 477.2 440 folic acid 287 keppra 125 IVPB 120 350 NS (0.9%) 120 350 Medicated IV 1052.0 924.7 774.1 CC - Amiodarone 50 CC - Dobutamine 166 92 33.3 CC - Propofol/Diprivan 644 643 544 precedex 192.0 189.7 196.8 Oral 30 0 0 0 Tube Feeding 67 300 Tube Feeding Flush Amount 120 30 NG Tube Irrigate Amount 60 Output: Urine 40 Nayak 1700 1251 905 Other: Date of Last Bowel 12/23/17 Movement # Bowel Movements 1 Estimated Stool Amount Small Labs: Laboratory Results - last 24 hr 12/25/17 08:55 Phenytoin 11.2 Impression: 52M admitted with VT/VF arrest 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, now with seizures 2/2 cerebral anoxia Plan: Neuro: - seizures 2/2 cerebral anoxia - poor prognosis given ct findings and seizures - c/w keppra/dilantin - monitor dilantin levels - veeg per neurology CV - VT/VF arrest 2/2 AMI - s/p pci - no further arrythmia - off dobutamine - c/w asa/statin/plavix - tte with ef 40-45% Pulm - respiratory failure - 2/2 vt/vf arrest - wean vent as tolerated - currently on minimal settings ID - no evidence of infection - wbc normal - afebrile GI - transaminitis - lfts trending down - likely 2/2 cardiogenic shock which resolved - will reduce dose of statin if lfts do not improve Renal - monitor creatinine - strict i/o, daily weights - replete potassium Heme - thrombocytopenia - likely 2/2 DAPT - doubt HIT (antibody pending) - monitor cbc - c/w arixtra Endo - a1c 5.4 - FS wnl Nutrition - c/w tube feeds PPx - ppi - arixtra Will discuss with family about goals of care as meaningful recovery is unlikely Critical Care Time: 45 mins Subjective - Subjective Current Medications: Current Medications Acetaminophen (Tylenol Adult Liq*) 650 mg NG TUBE Q4H PRN PRN Reason: TEMPERATURE>36DEGREES CELSIUS Last Admin: 12/25/17 21:35 Dose: 650 mg Aspirin (Aspirin 81 Mg Chew Tab*) 81 mg NG TUBE DAILY [facility] Last Admin: 12/25/17 09:04 Dose: 81 mg Atorvastatin Calcium (Lipitor*) 80 mg NG TUBE 1700 [facility] Last Admin: 12/25/17 17:55 Dose: 80 mg Chlorhexidine Gluconate (Peridex Mouth Wash 0.12%*) 15 ml TOPICAL Q4H [facility] Last Admin: 12/26/17 03:49 Dose: 15 ml Clopidogrel Bisulfate (Plavix Tab*) 75 mg PO DAILY [facility] Last Admin: 12/25/17 13:17 Dose: 75 mg Fentanyl Citrate (Fentanyl*) 50 mcg IV Q1H PRN PRN Reason: SHIVERING Last Admin: 12/23/17 01:24 Dose: 50 mcg Fondaparinux (Arixtra*) 2.5 mg SUBCUT DAILY [facility] Last Admin: 12/25/17 09:08 Dose: 2.5 mg Propofol (Diprivan*) 100 mls @ 9.12 mls/hr IVPB .(Initial Rate) [facility]; Protocol Last Admin: 12/26/17 05:58 Dose: 20.3 mls/hr Dobutamine HCl/Dextrose (Dobutamine 2000 Mcg/Ml Ivpremx*) 500 mg in 250 mls @ 18.045 mls/hr IV PER RATE [facility]; Protocol Last Admin: 12/23/17 14:03 Dose: 11.4 mls/hr Thiamine HCl 100 mg/ Sodium (Chloride) 51 mls @ 102 mls/hr IV DAILY [facility] Last Admin: 12/25/17 09:05 Dose: 102 mls/hr Folic Acid 1 mg/ Sodium (Chloride) 50.2 mls @ 100.4 mls/hr IVPB DAILY [facility] Last Admin: 12/25/17 09:05 Dose: 100.4 mls/hr Levetiracetam 1,000 mg/ Sodium (Chloride) 110 mls @ 440 mls/hr IVPB Q8HR [facility] Last Admin: 12/26/17 06:16 Dose: 440 mls/hr Dexmedetomidine HCl 400 mcg/ (Sodium Chloride) 100 mls @ 10.02 mls/hr IVPB Q12H [facility]; Protocol Last Admin: 12/26/17 01:43 Dose: 10.02 mls/hr Lorazepam (Ativan Inj*) 1 mg IV PUSH Q4H PRN PRN Reason: seizures Last Admin: 12/22/17 11:45 Dose: 2 mg Pantoprazole Sodium (Protonix Iv*) 40 mg IV DAILY [facility] Last Admin: 12/25/17 09:04 Dose: 40 mg
--- NOTE | 2017-12-26 08:51 | PN ---
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 Repeat head ct with cerebral anoxia. Vital Signs: Temp Pulse Resp BP SpO2 FiO2 100.1 F 92 26 144/83 96 35 12/26/17 04:00 12/26/17 07:00 12/26/17 07:00 12/26/17 07:00 12/26/17 07:00 12/26 04:00 Physical Exam: Gen: intubated and sedated HEENT: ncat, +ett Lungs: cta, no wrr Cardiac: s1/s2, no murmur Abdomen: soft nt, nd Extremities: no edema Neuro: sedated, unresponsive, perrl Fluid Balance (Past 24 Hours): I= O= Net Intake & Output 12/24/17 12/25/17 12/26/17 12/27/17 06:59 06:59 06:59 06:59 Intake Total 1631.5 1938.9 1729.1 0 Output Total 1700 1291 905 Balance -68.5 647.9 824.1 0 Weight 90.9 kg 87.1 kg Intake: IV Fluids 429.5 477.2 565 NS (0.9%) 142.5 477.2 440 folic acid 287 keppra 125 IVPB 120 350 NS (0.9%) 120 350 Medicated IV 1052.0 924.7 774.1 CC - Amiodarone 50 CC - Dobutamine 166 92 33.3 CC - Propofol/Diprivan 644 643 544 precedex 192.0 189.7 196.8 Oral 30 0 0 0 Tube Feeding 67 300 Tube Feeding Flush Amount 120 30 NG Tube Irrigate Amount 60 Output: Urine 40 Nayak 1700 1251 905 Other: Date of Last Bowel 12/23/17 Movement # Bowel Movements 1 Estimated Stool Amount Small ADLs: Meal Record Start: 12/21/17 14: 38 Freq: ,,18 Status: Hold Protocol: Created 12/21/17 14:38 System (Rec: 12/21/17 14:38 System [id number]) Document 12/21/17 18:00 [id number] (Rec: 12/21/17 18:22 [id number] ) Intake and Output Start: 12/21/17 14: 38 Freq: Q1HR Status: Active Labs: Laboratory Results - last 24 hr 12/25/17 08:55 Phenytoin 11.2 Studies: CT Head 12/25/17: IMPRESSION: THERE IS DIFFUSE LOSS OF BLUM-WHITE DIFFERENTIATION CONSISTENT WITH DIFFUSE ANOXIC INJURY. THERE HAS BEEN DEVELOPMENT OF MILD SULCAL EFFACEMENT SUGGESTIVE OF DEVELOPING CEREBRAL EDEMA. Impression: Problems Respiratory failure (Acute) J96.90 Coronary artery disease (Acute) I25.10 Cerebral anoxic injury (Acute) Ventricular fibrillation (Acute) I49.01 Transaminitis (Acute) R74.0 Cocaine abuse (Acute) F14.10 Cardiac arrest (Acute) I46.9 Plan: Neuro: - seizures 2/2 cerebral anoxia - poor prognosis given ct findings and seizures - c/w keppra/dilantin - monitor dilantin levels - veeg per neurology CV - VT/VF arrest 2/2 AMI - s/p pci - no further arrythmia - off dobutamine - c/w asa/statin/plavix - tte with ef 40-45% Pulm - respiratory failure - 2/2 vt/vf arrest - wean vent as tolerated - currently on minimal settings ID - no evidence of infection - wbc normal - afebrile GI - transaminitis - lfts trending down - likely 2/2 cardiogenic shock which resolved - will reduce dose of statin if lfts do not improve Renal - monitor creatinine - strict i/o, daily weights - replete potassium Heme - thrombocytopenia - likely 2/2 DAPT - doubt HIT (antibody pending) - monitor cbc - c/w arixtra Endo - a1c 5.4 - FS wnl Nutrition - c/w tube feeds PPx - ppi - arixtra Will discuss with family about goals of care as meaningful recovery is unlikely. Critical Care Time: 45 min
[2017-12-26] MEDS: Fondaparinux* 2.5 MG/0.5 ML SYRINGE SUBCUT SCH (09:15)
[2017-12-26] MEDS: Clopidogrel TAB* 75 MG PO SCH (09:15)
[2017-12-26] MEDS: Aspirin 81 mg CHEW TAB* 81 MG TAB.CHEW NG TUBE SCH (09:15)
[2017-12-26] MEDS: Pantoprazole IV* 40 MG IV SCH (09:15)
--- NOTE | 2017-12-26 09:56 | PN ---
Subjective Date of Service: 12/26/17 - CC: seizures Interval History: Pt sedated, intubated, no history from patient. 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 Dobutamine weaned off. Medications Active Medications: Acetaminophen (Tylenol Adult Liq*) 650 mg NG TUBE Q4H PRN PRN Reason: TEMPERATURE>36DEGREES CELSIUS Last Admin: 12/25/17 21:35 Dose: 650 mg Aspirin (Aspirin 81 Mg Chew Tab*) 81 mg NG TUBE DAILY [facility] Last Admin: 12/26/17 09:15 Dose: 81 mg Atorvastatin Calcium (Lipitor*) 80 mg NG TUBE 1700 [facility] Last Admin: 12/25/17 17:55 Dose: 80 mg Chlorhexidine Gluconate (Peridex Mouth Wash 0.12%*) 15 ml TOPICAL Q4H [facility] Last Admin: 12/26/17 09:15 Dose: 15 ml Clopidogrel Bisulfate (Plavix Tab*) 75 mg PO DAILY [facility] Last Admin: 12/26/17 09:15 Dose: 75 mg Fentanyl Citrate (Fentanyl*) 50 mcg IV Q1H PRN PRN Reason: SHIVERING Last Admin: 12/23/17 01:24 Dose: 50 mcg Fondaparinux (Arixtra*) 2.5 mg SUBCUT DAILY [facility] Last Admin: 12/26/17 09:15 Dose: 2.5 mg Propofol (Diprivan*) 100 mls @ 9.12 mls/hr IVPB .(Initial Rate) [facility]; Protocol Last Admin: 12/26/17 05:58 Dose: 20.3 mls/hr Dobutamine HCl/Dextrose (Dobutamine 2000 Mcg/Ml Ivpremx*) 500 mg in 250 mls @ 18.045 mls/hr IV PER RATE [facility]; Protocol Last Admin: 12/23/17 14:03 Dose: 11.4 mls/hr Thiamine HCl 100 mg/ Sodium (Chloride) 51 mls @ 102 mls/hr IV DAILY [facility] Last Admin: 12/25/17 09:05 Dose: 102 mls/hr Folic Acid 1 mg/ Sodium (Chloride) 50.2 mls @ 100.4 mls/hr IVPB DAILY [facility] Last Admin: 12/25/17 09:05 Dose: 100.4 mls/hr Levetiracetam 1,000 mg/ Sodium (Chloride) 110 mls @ 440 mls/hr IVPB Q8HR [facility] Last Admin: 12/26/17 06:16 Dose: 440 mls/hr Dexmedetomidine HCl 400 mcg/ (Sodium Chloride) 100 mls @ 10.02 mls/hr IVPB Q12H [facility]; Protocol Last Admin: 12/26/17 01:43 Dose: 10.02 mls/hr Lorazepam (Ativan Inj*) 1 mg IV PUSH Q4H PRN PRN Reason: seizures Last Admin: 12/22/17 11:45 Dose: 2 mg Pantoprazole Sodium (Protonix Iv*) 40 mg IV DAILY [facility] Last Admin: 12/26/17 09:15 Dose: 40 mg Objective Vital Signs: Temp Pulse Resp BP Pulse Ox 100.1 F 92 26 144/83 96 12/26/17 04:00 12/26/17 07:00 12/26/17 07:00 12/26/17 07:00 12/26/17 07:00 Oxygen Devices in Use Now: Mechanical Ventilator Appearance: fit appearing older middle aged male, ventilated, sedated lying quietly. Eyes: No Scleral Icterus Ears/Nose/Mouth/Throat: Clear Oropharnyx, Mucous Membranes Moist Neck: NL Appearance and Movements; NL JVP, Trachea Midline Respiratory: Symmetrical Chest Expansion and Respiratory Effort, Clear to Auscultation - anteriorly and laterally. Cardiovascular: NL Sounds; No Murmurs; No JVD, RRR Abdominal: NL Sounds; No Tenderness; No Distention, No Hepatosplenomegaly Extremities: No Edema Neurological: - - sedated. Laboratory Results: 12/25/17 03:55 12/25/17 03:55 INR (Anticoag Therapy) 0.83 (0.77-1.02) 12/25/17 03:55 APTT 29.6 seconds (26.0-36.3) 12/25/17 03:55 Total Bilirubin 0.40 mg/dL (0.2-1.0) 12/25/17 03:55 Direct Bilirubin 0.10 mg/dL (0.03-0.18) 12/24/17 04:31 Indirect Bilirubin 0.4 mg/dL (0.3-1.0) 12/24/17 04:31 AST 174 U/L (13-39) H 12/25/17 03:55 ALT 84 U/L (7-52) H 12/25/17 03:55 Alkaline Phosphatase 47 U/L (34-104) 12/25/17 03:55 CK-MB (CK-2) 431.0 ng/mL (0.6-6.3) H 12/22/17 09:15 B-Natriuretic Peptide 88 pg/mL (-100) 12/21/17 13:05 Total Protein 5.1 g/dL (6.4-8.9) L 12/25/17 03:55 Albumin 2.6 g/dL (3.2-5.2) L 12/25/17 03:55 Globulin 2.5 g/dL (2-4) 12/25/17 03:55 Albumin/Globulin Ratio 1.0 (1-3) 12/25/17 03:55 Triglycerides 153 mg/dL 12/21/17 13:05 Cholesterol 157 mg/dL 12/21/17 13:05 LDL Cholesterol 78 mg/dL 12/21/17 13:05 HDL Cholesterol 48.8 mg/dL 12/21/17 13:05 TSH 1.83 mcIU/mL (0.34-5.60) 12/22/17 00:20 12/21/17 12/21/17 12/22/17 13:05 20:10 03:38 Troponin I 0.05 H* 13.58 H* > 81.00 H* 12/22/17 12/22/17 12/23/17 09:15 21:10 10:50 Troponin I > 81.00 H* 71.17 H* 48.20 H* Diagnostic Imaging: CT brain 12/25/17: diffuse anoxic injury and cerebral edema. Echo 12/23/17: inferior apical hypokinesis, EF 40-45%, mild MR, RV function low normal. EKG Data: Monitor: NSR Assessment/Plan 52 yo male arrived in VF arrest/VT storm to shock, cathed with stenting to RCA for occlusion. Tox screen + cocaine. Moderate ischemic cardiomyopathy. Now with severe anoxic brain injury and seizures. CAD: Continue ASA, lipator, plavix (post stent) CM: If survivable event, addition of ACEI or ARB and beta bloocker would be beneficial keeping MAP at levels desired by neurology. Acutely, beta marty could increase arterial spasm in setting of cocaine use. VT: Resolved post stent. Beta blockers or stronger antiarrhythmics PRN Amiodarone is still in system. Cardiology will follow more distantly.
[2017-12-26] MEDS: Thiamine IV* 100 MG in NS 0.9% 50 ML* 50 ML IV SCH (09:59)
[2017-12-26] MEDS: Folic Acid IV* 1 MG in NS 0.9% 50 ML* 50 ML IVPB SCH (10:00)
--- NOTE | 2017-12-26 13:56 | PN ---
Progress Note - Progress Note Date of Service: 12/26/17 SOAP: Neurology progress note Date of service: 12/26/17 Subjective: Patient had no acute events overnight. Propofol has been titrating down. Objective: Vital Signs Temp Pulse Resp BP Pulse Ox 100.1 F 89 28 140/84 96 12/26/17 04:00 12/26/17 11:00 12/26/17 10:00 12/26/17 11:00 12/26/17 11:00 Current Medications Acetaminophen (Tylenol Adult Liq*) 650 mg NG TUBE Q4H PRN PRN Reason: TEMPERATURE>36DEGREES CELSIUS Last Admin: 12/25/17 21:35 Dose: 650 mg Aspirin (Aspirin 81 Mg Chew Tab*) 81 mg NG TUBE DAILY [facility] Last Admin: 12/26/17 09:15 Dose: 81 mg Atorvastatin Calcium (Lipitor*) 80 mg NG TUBE 1700 [facility] Last Admin: 12/25/17 17:55 Dose: 80 mg Chlorhexidine Gluconate (Peridex Mouth Wash 0.12%*) 15 ml TOPICAL Q4H [facility] Last Admin: 12/26/17 09:15 Dose: 15 ml Clopidogrel Bisulfate (Plavix Tab*) 75 mg PO DAILY [facility] Last Admin: 12/26/17 09:15 Dose: 75 mg Fentanyl Citrate (Fentanyl*) 50 mcg IV Q1H PRN PRN Reason: SHIVERING Last Admin: 12/23/17 01:24 Dose: 50 mcg Fondaparinux (Arixtra*) 2.5 mg SUBCUT DAILY [facility] Last Admin: 12/26/17 09:15 Dose: 2.5 mg Propofol (Diprivan*) 100 mls @ 9.12 mls/hr IVPB .(Initial Rate) [facility]; Protocol Last Admin: 12/26/17 11:20 Dose: 20 mls/hr Dobutamine HCl/Dextrose (Dobutamine 2000 Mcg/Ml Ivpremx*) 500 mg in 250 mls @ 18.045 mls/hr IV PER RATE [facility]; Protocol Last Admin: 12/23/17 14:03 Dose: 11.4 mls/hr Thiamine HCl 100 mg/ Sodium (Chloride) 51 mls @ 102 mls/hr IV DAILY [facility] Last Admin: 12/26/17 09:59 Dose: 102 mls/hr Folic Acid 1 mg/ Sodium (Chloride) 50.2 mls @ 100.4 mls/hr IVPB DAILY [facility] Last Admin: 12/26/17 10:00 Dose: 100.4 mls/hr Levetiracetam 1,000 mg/ Sodium (Chloride) 110 mls @ 440 mls/hr IVPB Q8HR [facility] Last Admin: 12/26/17 06:16 Dose: 440 mls/hr Dexmedetomidine HCl 400 mcg/ (Sodium Chloride) 100 mls @ 10.02 mls/hr IVPB Q12H [facility]; Protocol Last Admin: 12/26/17 01:43 Dose: 10.02 mls/hr Lorazepam (Ativan Inj*) 1 mg IV PUSH Q4H PRN PRN Reason: seizures Last Admin: 12/22/17 11:45 Dose: 2 mg Pantoprazole Sodium (Protonix Iv*) 40 mg IV DAILY [facility] Last Admin: 12/26/17 09:15 Dose: 40 mg Laboratory Last Values WBC 9.0 10^3/ul (3.5-10.8) 12/25/17 03:55 RBC 3.36 10^6/ul (4.00-5.40) L 12/25/17 03:55 Hgb 10.7 g/dl (14.0-18.0) L 12/25/17 03:55 Hct 31 % (42-52) L 12/25/17 03:55 MCV 92 fL (80-94) 12/25/17 03:55 MCH 32 pg (27-31) H 12/25/17 03:55 MCHC 35 g/dl (31-36) 12/25/17 03:55 RDW 14 % (10.5-15) 12/25/17 03:55 Plt Count 109 10^3/ul (150-450) L 12/25/17 03:55 MPV 7.6 um3 (7.4-10.4) 12/25/17 03:55 Neut % (Auto) 86.5 % (38-83) H 12/25/17 03:55 Lymph % (Auto) 6.4 % (25-47) L 12/25/17 03:55 [place] % (Auto) 5.9 % (0-7) 12/25/17 03:55 Eos % (Auto) 0.8 % (0-6) 12/25/17 03:55 Baso % (Auto) 0.4 % (0-2) 12/25/17 03:55 Absolute Neuts (auto) 7.8 10^3/ul (1.5-7.7) H 12/25/17 03:55 Absolute Lymphs (auto) 0.6 10^3/ul (1.0-4.8) L 12/25/17 03:55 Absolute Monos (auto) 0.5 10^3/ul (0-0.8) 12/25/17 03:55 Absolute Eos (auto) 0.1 10^3/ul (0-0.6) 12/25/17 03:55 Absolute Basos (auto) 0 10^3/ul (0-0.2) 12/25/17 03:55 Absolute Nucleated RBC 0 10^3/ul 12/25/17 03:55 Nucleated RBC % 0 12/25/17 03:55 INR (Anticoag Therapy) 0.83 (0.77-1.02) 12/25/17 03:55 APTT 29.6 seconds (26.0-36.3) 12/25/17 03:55 POC Activ Clotting Time 217 seconds 12/21/17 20:56 Patient Temperature 35.2c 12/22/17 06:40 ABG pH 7.30 (7.35-7.45) L 12/22/17 06:40 ABG pH (Temp Correct) Not Reportable 12/22/17 06:40 ABG pCO2 30 mmHg (35-45) L 12/22/17 06:40 ABG pCO2 (Temp Corrct Not Reportable 12/22/17 06:40 ABG pO2 158 mmHg (80-100) H 12/22/17 06:40 ABG pO2 (Temp Correct Not Reportable 12/22/17 06:40 ABG HCO3 16.9 mmol/L (19-31) L 12/22/17 06:40 ABG O2 Saturation 98.7 % (95-98) H 12/22/17 06:40 ABG Base Excess -10.3 (-2.0-2.0) L 12/22/17 06:40 VBG pH 7.39 (7.33-7.43) 12/23/17 12:30 VBG pCO2 40 mmHg (41-51) L 12/23/17 12:30 VBG pO2 45 mmHg (35-45) 12/23/17 12:30 VBG HCO3 24.1 mmol/L (24-28) 12/23/17 12:30 VBG O2 Saturation 85.2 % (70-80) H 12/23/17 12:30 VBG Base Excess -0.7 (0-4) L 12/23/17 12:30 Respiration Rate 13 12/22/17 06:40 O2 Delivery Device ventilator 12/21/17 13:05 Ventilator Type 500 12/22/17 06:40 Vent Mode Apv/cmv 12/22/17 06:40 FiO2 50 12/22/17 06:40 Inspiratory Time Not Reportable 12/22/17 06:40 PEEP 5 12/22/17 06:40 Pressure Support Not Reportable 12/22/17 06:40 Pressure Control Not Reportable 12/22/17 06:40 EPAP Not Reportable 12/22/17 06:40 IPAP Not Reportable 12/22/17 06:40 BiPAP Not Reportable 12/22/17 06:40 Sodium 138 mmol/L (135-145) 12/25/17 03:55 Potassium 3.5 mmol/L (3.5-5.0) 12/25/17 03:55 Chloride 105 mmol/L (101-111) 12/25/17 03:55 Carbon Dioxide 23 mmol/L (22-32) 12/25/17 03:55 Anion Gap 10 mmol/L (2-11) 12/25/17 03:55 BUN 15 mg/dL (6-24) 12/25/17 03:55 Creatinine 0.84 mg/dL (0.67-1.17) 12/25/17 03:55 Est GFR ( Amer) 117.0 (>60) 12/25/17 03:55 Est GFR (Non-Af Amer) 96.7 (>60) 12/25/17 03:55 BUN/Creatinine Ratio 17.9 (8-20) 12/25/17 03:55 Glucose 113 mg/dL (70-100) H 12/25/17 03:55 Hemoglobin A1c 5.4 % (4.0-5.6) 12/22/17 00:20 Lactic Acid 1.1 mmol/L (0.5-2.0) 12/22/17 18:15 Calcium 7.8 mg/dL (8.6-10.3) L 12/25/17 03:55 Phosphorus 2.8 mg/dL (2.5-5.0) 12/22/17 09:15 Magnesium 1.6 mg/dL (1.9-2.7) L 12/25/17 03:55 Total Bilirubin 0.40 mg/dL (0.2-1.0) 12/25/17 03:55 Direct Bilirubin 0.10 mg/dL (0.03-0.18) 12/24/17 04:31 Indirect Bilirubin 0.4 mg/dL (0.3-1.0) 12/24/17 04:31 AST 174 U/L (13-39) H 12/25/17 03:55 ALT 84 U/L (7-52) H 12/25/17 03:55 Alkaline Phosphatase 47 U/L (34-104) 12/25/17 03:55 Ammonia 56 mcmol/L (16-53) H 12/23/17 05:30 Total Creatine Kinase 51905 U/L (10-223) H 12/22/17 09:15 CK-MB (CK-2) 431.0 ng/mL (0.6-6.3) H 12/22/17 09:15 Troponin I 48.20 ng/mL (<0.04) H* 12/23/17 10:50 B-Natriuretic Peptide 88 pg/mL (-100) 12/21/17 13:05 Total Protein 5.1 g/dL (6.4-8.9) L 12/25/17 03:55 Albumin 2.6 g/dL (3.2-5.2) L 12/25/17 03:55 Globulin 2.5 g/dL (2-4) 12/25/17 03:55 Albumin/Globulin Ratio 1.0 (1-3) 12/25/17 03:55 Triglycerides 153 mg/dL 12/21/17 13:05 Cholesterol 157 mg/dL 12/21/17 13:05 LDL Cholesterol 78 mg/dL 12/21/17 13:05 HDL Cholesterol 48.8 mg/dL 12/21/17 13:05 TSH 1.83 mcIU/mL (0.34-5.60) 12/22/17 00:20 Cortisol 45.21 mcg/dL 12/22/17 00:20 Urine Color Yellow 12/21/17 23:00 Urine Appearance Clear 12/21/17 23:00 Urine pH 5.0 (5-9) 12/21/17 23:00 Ur Specific [place] 1.012 (1.010-1.030) 12/21/17 23:00 Urine Protein Negative (Negative) 12/21/17 23:00 Urine Ketones Negative (Negative) 12/21/17 23:00 Urine Blood 3+ (Negative) A 12/21/17 23:00 Urine Nitrate Negative (Negative) 12/21/17 23:00 Urine Bilirubin Negative (Negative) 12/21/17 23:00 Urine Urobilinogen Negative (Negative) 12/21/17 23:00 Ur Leukocyte Esterase Negative (Negative) 12/21/17 23:00 Urine WBC (Auto) Trace(0-5/hpf) (Absent) 12/21/17 23:00 Urine RBC (Auto) Trace(0-2/hpf) (Absent) 12/21/17 23:00 Urine Bacteria Absent (Absent) 12/21/17 23:00 Urine Glucose 3+(>=500 mg/dl) (Negative) A 12/21/17 23:00 Urine Opiates Screen None detected (None Detect) 12/21/17 16:10 Ur Barbiturates Screen None detected (None Detect) 12/21/17 16:10 Phenytoin 11.2 mcg/mL (10-20) 12/25/17 08:55 Levetiracetam 27.9 mcg/mL 12/25/17 08:55 Ur Phencyclidine Scrn None detected (None Detect) 12/21/17 16:10 Ur Amphetamines Screen None detected (None Detect) 12/21/17 16:10 U Benzodiazepines Scrn None detected (None Detect) 12/21/17 16:10 Urine Cocaine Screen Presumptive positive (None Detect) A 12/21/17 16:10 U Cannabinoids Screen None detected (None Detect) 12/21/17 16:10 Blood Type A Negative 12/21/17 13:05 Antibody Screen Negative 12/21/17 13:05 PHYSICAL EXAM: After being off propofol for more than 12 minutes, the patient had coughing and grimacing to noxious stimulus. Spontaneously, he was also having coughing and yawning. Pupils 3-4 mm, symmetric and reactive to light. No roving eye movements. Intact bilateral corneal reflexes. Gag reflex intact. With noxious stimulus to the extremities had extensor posturing movement of the left arm more than right. Some small movements in the lower extremities to noxious stimuli were seen. EEG: I reviewed the EEG for the past 24 hours. For the most part the background was suppressed and with stimulation, there was emergence of areas of burst lasting 2 -3 seconds, with no clear epileptiform discharges. There was not much improvement in the background EEG activity upon stimulation. CT head on 12/25/17: THERE IS DIFFUSE LOSS OF BLUM-WHITE DIFFERENTIATION CONSISTENT WITH DIFFUSE ANOXIC INJURY. THERE HAS BEEN DEVELOPMENT OF MILD SULCAL EFFACEMENT SUGGESTIVE OF DEVELOPING CEREBRAL EDEMA. Assessment and plan: 52-year-old male with hypoxic brain injury. His seizures are under good control now. The brain stem reflexes are intact, but given the neurological exam and CT findings probably he has suffered severe hypoxic injury affecting his higher cortical functions. Although his brain stem reflexes are intact, prognosis for a meaningful neurology based on the above seem to be low. Continue the current dose of Dilantin and Levetiracetam. Please check the level of Dilantin tomorrow again.
--- NOTE | 2017-12-26 15:22 | PN ---
Progress Note - Progress Note Date of Service: 12/26/17 Note: Family discussion held. All in agreement that the patient would not want to be maintained on life support in given his poor neurological prognosis. Family has elected to change the patients code status to DNR. The are waiting for extended family members to arrive prior to withdrawal of care.
[2017-12-26] MEDS ORDERED: Morphine PCA ADULT* 5 MG/ML 30 ML ONE (16:41)
--- NOTE | 2017-12-26 16:45 | PN ---
Progress Note - Progress Note Date of Service: 12/26/17 Note: Discussed with patient's brother. Family wishes for terminal extubation. Comfort care order set placed. Morphine drip ordered.
[2017-12-26] MEDS ORDERED: Haloperidol INJ IV/IM* 5 MG/ML AMP IV SLOW PU PRN (16:59)
[2017-12-26] MEDS ORDERED: Morphine PCA ADULT* 5 MG/ML 30 ML PCA SCH (17:00)
[2017-12-26] MEDS ORDERED: LORazepam INJ* 2 MG/ML 1 ML VIAL ONE (17:02)
[2017-12-26] MEDS: LORazepam INJ* 2 MG/ML 1 ML VIAL IV PUSH PRN (17:05)
[2017-12-26 17:41] VITALS: BP 186/107
--- NOTE | 2017-12-26 19:30 | EEG ---
SENIOR CARE VIDEO/EEG MONITORING - Monitoring Monitoring Start Date: 12/25/17 - at 07:45 to 12/26/17 at 13:59 Current Monitoring Session: The patient was off monitoring on 12/25/2017 from 10:07 to 14:[address] imaging of the head. EEG Clinical Indication: 52-year-old male s/p cardiac arrest with hypoxic brain injury. On previous EEGs he was found to have seizure and was started on Video-EEG recording to monitor his seizures. Introduction: INTRODUCTION: The EEG was monitored from 21 scalp electrodes. Nineteen electrodes consisted of the standard parasagittal, temporal and midline leads of the International 10 -20 system. In addition, special electrodes FT9 and FT10 were placed. EEG data were recorded on an Ve[employer]ium system with simultaneous MPEG-4 digital video recording of patient behavior. EEG recording was in a monopolar montage with all electrodes referenced to FCz. Significant behavioral events were signaled by an event button, or putative electrical seizure events were detected by a computer program. All EEG data were reviewed in their entirety on a monitor with reconstruction of montages and adjustments of sensitivity and filtering. Simultaneous patient behavior was viewed on an adjacent monitor and correlated with the EEG. - Medications Active Medications: Acetaminophen (Tylenol Adult Liq*) 650 mg NG TUBE Q4H PRN PRN Reason: TEMPERATURE>36DEGREES CELSIUS Last Admin: 12/25/17 21:35 Dose: 650 mg Chlorhexidine Gluconate (Peridex Mouth Wash 0.12%*) 15 ml TOPICAL Q4H [facility] Last Admin: 12/26/17 09:15 Dose: 15 ml Fentanyl Citrate (Fentanyl*) 50 mcg IV Q1H PRN PRN Reason: SHIVERING Last Admin: 12/23/17 01:24 Dose: 50 mcg Haloperidol Lactate (Haldol Inj Iv/Im*) 5 mg IV SLOW PU Q2H PRN PRN Reason: AGITATION Dexmedetomidine HCl 400 mcg/ (Sodium Chloride) 100 mls @ 10.02 mls/hr IVPB Q12H [facility]; Protocol Last Admin: 12/26/17 13:58 Dose: 9.8 mls/hr Morphine Sulfate (Morphine Benzol Still Operator Adult* 5 Mg/Ml) 30 mls @ 0 mls/hr [employer] .change Q24H [facility]; Protocol Lorazepam (Ativan Inj*) 5 mg IV PUSH Q1H PRN PRN Reason: seizures Last Admin: 12/26/17 17:05 Dose: 5 mg - Description Background: In the most stimulated state and off sedative medications, the background consisted of a burst-suppression pattern characterized by IBI (interburst intervals) of 3-6 seconds. The burst areas consisted of 30-50 microvolts, 1.5-3 Hz discharges. No clear epileptiform discharges were seen in the burst areas. No clear anterior-posterior gradient or posterior dominant rhythms was seen. Throughout the rest of the study, without stimulation, the EEG had a suppressed pattern as described above, without burst. No seizures were seen. Intericatal Epileptiform Activity: None Ictal Activity: None - Impression Impression: This digital video-EEG for 26 hours over 2 days, from 12/25/2017 at 07:45 to 2017 at 13:59 was abnormal due to: 1) Burst-suppression pattern during the periods of stimulation and also periods off sedation; and suppressed throughout the rest of the recording. No clear epileptiform discharges or seizures were seen throughout the recording.
[2017-12-27] MEDS: fentaNYL* 50 MCG/ML 2 ML VIAL (100 MCG VIAL) IV PRN (06:03)
[2017-12-27] MEDS: LORazepam INJ* 2 MG/ML 1 ML VIAL IV PUSH PRN ×2 (10:34→13:09)
[2017-12-27] MEDS: Dexmedetomidine* 400 MCG in NS 0.9% 100 ML* 96 ML IVPB SCH (10:35)
--- NOTE | 2017-12-27 12:13 | DS ---
Discharge Summary Admission Date: 12/21/17 Discharge Date: 12/27/17 Attending Physician: Cesar Saravia DO Dictated by: Cesar Saravia DO Primary Care Physician: None Referring Physician: None Consulting Physician(s): Brian (Cardiology), Jaciel (Neurology) Condition on Discharge: Final Diagnosis: Cardiac arrest (Acute) I46.9 Cerebral anoxic injury (Acute) Cocaine abuse (Acute) F14.10 Coronary artery disease (Acute) I25.10 Respiratory failure (Acute) J96.90 Transaminitis (Acute) R74.0 Ventricular fibrillation (Acute) I49.01 Procedures: LHC (12/21/17) CT Head (12/21/17) TTE (12/21/17) CT Head (12/23/17) EEG (12/23/17) History of Present Illness: 52y M pmhx of smoking; [place] [facility] [place]. Today unclear if witnessed collapsed but called by someone for unresponsiveness , on arrival by fire dept, CPR started, noted to be in VT/VF, defibrillated. EMS arrival. CPR continued, VT->asystole->PEA rhythms. Intubated. Given multiple epi and bicarb. 10min later is when EMS arrived. ROSC achieved on arrival to ER, total duration ~40min since downtime. Initial vitals HR 130s, BP 170s/110s, intubated, unresponsive, not moving spontaneously, some agonal type of breaths noted. Pupils not reactive initially. Interventional cardiology called, EKG initial Sinus Tachycardia, no acute ST/T changes noted. Bedside stat ECHO being done, no gross focal wall motion abnormality noted, appears to be hyperdynamic, RV not apparently dilated, no pericardial effusion noted. Started on IVF bolus. admitted to ICU Recurrent VT and VF, suspicious for torsades. multiple deifibrillations, ROSC immediate. given multiple boluses of amiodarone IV push, already on IV amio infusion, multiple boluses of 100mg IV lidoaine also pushed. started on lidocaine 2mg/min, increased to 3mg/min. given additional 500mg procainamide IV push over 30min. Noted that patient was mostly in NSR, good AV associated. he would change to a wider complex rhythm with what appears to be a ventricular rhythm, less visible AV associated, probably even heart block developing? then more ectopy, followed by eventual ventricular tachycardia/fibrillation. after medications and defibrillations, he would eventually go back to NSR with normal AV conduction and narrow complex QRS. we considered a TVP to pace, but he has now remained NSR for about 1 hour, less frequent ectopy. EKG repeated with wider WRS; then again with a narrow qrs complex and no evidence of ST changes, some taller Twaves noted though. Cardiology has held off TVP currently. No clear ischemic changes on normalized EKG. Laboratory/Data : Please refer to electronic medical record. Hospital Course: The patient was admitted to the ICU. He was taken to cardiac cath where he was found to have a 100% occlusion of the RCA. This lesion was opened. He began to have seizures. CT head showed global anoxic injury. Seizures were treated with keppra and dilantin. Family discussion held and all were in agreement to change the patient to comfort care and he was terminally extubated on 12/26/17. The patient on 12/27/17 at 2:33 pm. Discharge Medications: None Discharge Instructions: None Follow up Appointments: None Code Status:
--- NOTE | 2017-12-27 14:41 | PN ---
Progress Note - Progress Note Date of Service: 12/27/17 Note: Called by RN that monitor showing asystole. I evaluated the patient. Exam consistent with expiration. Time of 2:33 pm. Family at bedside.
== END 2017-12-27 15:52 | disposition expired | DRG 270 ==
LOC: ED 13:53 → ICU 14:29
PROVIDERS: ADMIT Internal Medicine Critical Care Medicine; ATTEND Internal Medicine
PROC: 02703DZ Dilation of Coronary Artery, One Artery with Intraluminal Device, Percutaneous Approach (ICD-10-PCS; 2017-12-21)
PROC: B211YZZ Fluoroscopy of Multiple Coronary Arteries using Other Contrast (ICD-10-PCS; 2017-12-21)
PROC: 4A00X4Z Measurement of Central Nervous Electrical Activity, External Approach (ICD-10-PCS; 2017-12-21)
PROC: 02HV33Z Insertion of Infusion Device into Superior Vena Cava, Percutaneous Approach (ICD-10-PCS; 2017-12-21)
PROC: 05HN33Z Insertion of Infusion Device into Left Internal Jugular Vein, Percutaneous Approach (ICD-10-PCS; 2017-12-21)
PROC: B544ZZA Ultrasonography of Left Jugular Veins, Guidance (ICD-10-PCS; 2017-12-21)
PROC: 03HY32Z Insertion of Monitoring Device into Upper Artery, Percutaneous Approach (ICD-10-PCS; 2017-12-21)
PROC: 4A133B1 Monitoring of Arterial Pressure, Peripheral, Percutaneous Approach (ICD-10-PCS; 2017-12-21)
PROC: 4A133J1 Monitoring of Arterial Pulse, Peripheral, Percutaneous Approach (ICD-10-PCS; 2017-12-21)
PROC: 06HN33Z Insertion of Infusion Device into Left Femoral Vein, Percutaneous Approach (ICD-10-PCS; 2017-12-21)
PROC: B54CZZA Ultrasonography of Left Lower Extremity Veins, Guidance (ICD-10-PCS; 2017-12-21)
PROC: 5A1955Z Respiratory Ventilation, Greater than 96 Consecutive Hours (ICD-10-PCS; 2017-12-21)
PROC: 0T9B70Z Drainage of Bladder with Drainage Device, Via Natural or Artificial Opening (ICD-10-PCS; 2017-12-22)
PROC: 4A10X4Z Monitoring of Central Nervous Electrical Activity, External Approach (ICD-10-PCS; 2017-12-23)
PROC: 4A00X4Z Measurement of Central Nervous Electrical Activity, External Approach (ICD-10-PCS; 2017-12-23)
PROC: 02P Heart and Great Vessels, Removal (ICD-10-PCS; 2017-12-23)
PROC: 5A02210 Assistance with Cardiac Output using Balloon Pump, Continuous (ICD-10-PCS; principal; 2017-12-25)
PROC: 4A10X4Z Monitoring of Central Nervous Electrical Activity, External Approach (ICD-10-PCS; 2017-12-25)
DX: I49.01 Ventricular fibrillation (principal); I21.9 Acute myocardial infarction, unspecified; K72.01 Acute and subacute hepatic failure with coma; G93.6 Cerebral edema; J96.01 Acute respiratory failure with hypoxia; G93.1 Anoxic brain damage, not elsewhere classified; N17.9 Acute kidney failure, unspecified; E87.2 Acidosis; I47.2 Ventricular tachycardia; F17.210 Nicotine dependence, cigarettes, uncomplicated; I10 Essential (primary) hypertension; N28.9 Disorder of kidney and ureter, unspecified; I95.9 Hypotension, unspecified; F14.10 Cocaine abuse, uncomplicated; I25.10 Atherosclerotic heart disease of native coronary artery without angina pectoris; R74.0 Nonspecific elevation of levels of transaminase and lactic acid dehydrogenase [LDH]; R56.9 Unspecified convulsions; T68.XXXA Hypothermia, initial encounter; R73.9 Hyperglycemia, unspecified; D64.9 Anemia, unspecified; D69.6 Thrombocytopenia, unspecified; I25.5 Ischemic cardiomyopathy; Z66 Do not resuscitate; I46.2 Cardiac arrest due to underlying cardiac condition; Z95.5 Presence of coronary angioplasty implant and graft; Z72.89 Other problems related to lifestyle
CPT/HCPCS: 33967; 36415; 36600; 70450; 71045; 80048; 80053; 80061; 80076; 80177; 80185; 80307; 81003; 81015; 82140; 82533; 82550; 82553; 82803; 83036; 83605; 83735; 83880; 84100; 84443; 84484; 85025; 85027; 85347; 85610; 85730; 86022; 86850; 86900; 86901; 87070; 87077; 87086; 87185; 87186; 87205; 87641; 92950; 93005; 93306; 93454; 94002; 94003; 95812; 95951; 99285; A9270-GY; C1725; C1760; C1769; C1876; C1887; J0171; J0282; J0461; J1250; J1644; J2001; J2060; J2175; J2270; J2704; J3010; J3411; J3475; J3480; J3490; Q2009